=== PATIENT | male | born 1965 | race Hispanic/Latino ===

== ENCOUNTER 2016-10-18 07:14 | Emergency (ER) | payer SELFPAY ==
[2016-10-18 07:35] VITALS: BP 139/89
--- NOTE | 2016-10-18 07:59 | Emergency Department Report ---
- General Chief complaint: Animal Bite Stated complaint: KNOT ON ARM Time Seen by Provider: 10/18/16 07:53 Source: patient Mode of arrival: Ambulatory Limitations: No Limitations - History of Present Illness Initial comments: 51-year-old male with a past medical history of hypertension, hypercholesterolemia and gout comes in today to present with a swollen abscess on his left upper arm about the size of a dollar with a small pinhole in the center. Patient reports that he was bitten by insect. He reports that the pains 8 out of 10 that radiates up his left arm. Patient reports he noticed it about beginning of this week. He denies any alleviating or aggravating factors. He has not traveled outside the country in the last 30 days. MD complaint: insect bite/sting -: days(s) (3) Severity scale (0 -10): 8 Quality: sharp Consistency: intermittent Improves with: none Worsens with: none - Related Data Home Medications Medication Instructions Recorded Confirmed Last Taken Aspirin [Aspirin TAB] 325 mg PO QDAY 08/20/13 06/14/16 02/26/14 Lisinopril [Zestril] 40 mg PO QDAY 08/20/13 06/14/16 02/26/14 Metoprolol [Lopressor TAB] 100 mg PO BID 08/20/13 06/14/16 02/26/14 Pravastatin (Nf) [Pravachol] 40 mg PO QDAY 08/20/13 06/14/16 02/26/14 Previous Rx's Medication Instructions Recorded Last Taken Type Cephalexin [Keflex] 500 mg PO QID #40 capsule 10/18/16 Unknown Rx Allergies Allergy/AdvReac Type Severity Reaction Status Date / Time No Known Allergies Allergy Verified 02/11/16 21:37 Abscess Boil HPI - HPI Chief Complaint: Animal Bite Stated Complaint: KNOT ON ARM Time Seen by Provider: 10/18/16 07:53 Home Medications: Home Medications Medication Instructions Recorded Confirmed Last Taken Aspirin [Aspirin TAB] 325 mg PO QDAY 08/20/13 06/14/16 02/26/14 Lisinopril [Zestril] 40 mg PO QDAY 08/20/13 06/14/16 02/26/14 Metoprolol [Lopressor TAB] 100 mg PO BID 08/20/13 06/14/16 02/26/14 Pravastatin (Nf) [Pravachol] 40 mg PO QDAY 08/20/13 06/14/16 02/26/14 Previous Rx's Medication Instructions Recorded Last Taken Type Cephalexin [Keflex] 500 mg PO QID #40 capsule 10/18/16 Unknown Rx Allergies/Adverse Reactions: Allergies Allergy/AdvReac Type Severity Reaction Status Date / Time No Known Allergies Allergy Verified 02/11/16 21:37 ED Review of Systems ROS: Stated complaint: KNOT ON ARM Other details as noted in HPI ED Past Medical Hx - Past Medical History Previous Medical History?: Yes Hx Hypertension: Yes Hx Heart Attack/AMI: No Hx Congestive Heart Failure: No Hx Diabetes: No Hx Deep Vein Thrombosis: No Hx GERD: Yes Hx Sickle Cell Disease: No Hx Arthritis: No Hx Psychiatric Treatment: Yes Hx Asthma: No Hx COPD: No Hx HIV: No Additional medical history: gout. depression. high cholesterol - Surgical History Past Surgical History?: Yes Hx Coronary Stent: No Hx Pacemaker: No Hx Internal Defibrillator: No Additional Surgical History: angioplasty 2007 - Social History Smoking Status: Never Smoker Substance Use Type: None - Medications Home Medications: Home Medications Medication Instructions Recorded Confirmed Last Taken Type Aspirin [Aspirin TAB] 325 mg PO QDAY 08/20/13 06/14/16 02/26/14 History Lisinopril [Zestril] 40 mg PO QDAY 08/20/13 06/14/16 02/26/14 History Metoprolol [Lopressor TAB] 100 mg PO BID 08/20/13 06/14/16 02/26/14 History Pravastatin (Nf) [Pravachol] 40 mg PO QDAY 08/20/13 06/14/16 02/26/14 History Cephalexin [Keflex] 500 mg PO QID #40 capsule 10/18/16 Unknown Rx ED Physical Exam - General Limitations: No Limitations General appearance: alert, in no apparent distress - Head Head exam: Present: atraumatic, normocephalic - Eye Eye exam: Present: normal appearance - Cardiovascular Cardiovascular Exam: Present: regular rate, normal rhythm - Extremities Exam Extremities exam: Present: normal inspection, full ROM - Neurological Exam Neurological exam: Present: alert, oriented X3 - Psychiatric Psychiatric exam: Present: normal affect, normal mood - Skin Skin exam: Present: warm, dry, intact - Expanded Skin Exam Expanded Type of lesion: Present: abscess Description of rash: Present: size (half dollar), tenderness, erythematous, swelling, papular, indurated. Absent: blisters, discharge, fluctuant ED Course Vital Signs 10/18/16 07:26 Temperature 98.2 F Pulse Rate 82 Blood Pressure 139/89 O2 Sat by Pulse 100 Oximetry ED Medical Decision Making - Medical Decision Making Patient's been evaluated by this provider fast track. Discussed with patient that he needs supply warm compresses to the site 3-4 times a day. Complete antibiotics as prescribed. Follow-up in 3-4 days for reevaluation of the cellulitis/abscess. Patient verbalizes understanding. Critical care attestation.: If time is entered above; I have spent that time in minutes in the direct care of this critically ill patient, excluding procedure time. ED Disposition Clinical Impression: Cellulitis of left upper arm Disposition: DISCHARGED TO HOME OR SELFCARE Is pt being admited?: No Does the pt Need Aspirin: No Condition: Undetermined Additional Instructions: These take antibiotics as prescribed. He is to apply a warm hot compresses to the site at least 3-4 times a day. Please return back to the emergency room in 3-4 days for reevaluation of the abscess. Prescriptions: Cephalexin [Keflex] 500 mg PO QID #40 capsule Referrals: DR KADEN DIAMOND MERCHANT [Other] - 3-5 Days MICHAEL SUTTON MD [Staff Physician] - 3-5 Days Forms: Work/School Release Form(ED)
== END 2016-10-18 08:05 | disposition home or self-care (01) ==
LOC: ED 07:14
DX: L03.114 Cellulitis of left upper limb (principal); I10 Essential (primary) hypertension; K21.9 Gastro-esophageal reflux disease without esophagitis; F32.9 Major depressive disorder, single episode, unspecified; E78.00 Pure hypercholesterolemia, unspecified; M10.9 Gout, unspecified; Z98.62 Peripheral vascular angioplasty status
CPT/HCPCS: 99282

== ENCOUNTER 2016-10-21 16:38 | Emergency (ER) | payer SELFPAY ==
[2016-10-21] MEDS ORDERED: LET TOPICAL TP ONE (17:56)
[2016-10-21] MEDS ORDERED: TORADOL IM ONE (17:56)
[2016-10-21] MEDS ORDERED: MARCAINE 0.5% INFILTRATI NR (19:00)
--- NOTE | 2016-10-21 19:23 | Emergency Department Report ---
Entered by KRISTOPHER LEHMAN, acting as scribe for MAR BAE PA. - General Chief complaint: Skin/Abscess/Foreign Body Stated complaint: RASH ON LEFT ARM Time Seen by Provider: 10/21/16 17:22 Source: patient Mode of arrival: Ambulatory Limitations: No Limitations - History of Present Illness Initial comments: 51 year male with a PMHx of GERD and HTN presents to the ED c/o an abscess on left arm that began 3 days ago. Patient states that he was seen in this ED on c/o of similar symptoms and was prescribed Keflex along with pain medication. He was instructed to return to have abscess lanced and drained. Rates pain a 9/10 in severity. Denies fever, purulent drainage, numbness, nausea , vomiting, and insect bite. Reports applying warm compresses at home with no relief of pain. Notes tetanus shot is UTD. Denies tobacco use and EtOH consumption. NKDA. BERGERON complaint: abscess/boil (left upper arm) Onset/Timin -: days(s) Tetanus Up to Date: yes (2012) Location: LUE (left upper arm) Severity: moderate Severity scale (0 -10): 9 Quality: aching, sharp Consistency: constant Improves with: none Worsens with: none Context: none Associated symptoms: other (left upper arm pain due to abscess) Treatments Prior to Arrival: antibiotic, other (warm compresses) - Related Data Home Medications Medication Instructions Recorded Confirmed Last Taken Aspirin [Aspirin TAB] 325 mg PO QDAY 08/20/13 06/14/16 02/26/14 Lisinopril [Zestril] 40 mg PO QDAY 08/20/13 06/14/16 02/26/14 Metoprolol [Lopressor TAB] 100 mg PO BID 08/20/13 06/14/16 02/26/14 Pravastatin (Nf) [Pravachol] 40 mg PO QDAY 08/20/13 06/14/16 02/26/14 Previous Rx's Medication Instructions Recorded Last Taken Type Cephalexin [Keflex] 500 mg PO QID #40 capsule 10/21/16 Unknown Rx HYDROcodone/APAP 5-325 [[place] 1 each PO Q6HR PRN #12 tablet 10/21/16 Unknown Rx 5/325] Ibuprofen [Motrin] 600 mg PO Q8H PRN #15 tablet 10/21/16 Unknown Rx Sulfamethoxazole/Trimethoprim 1 each PO BID #20 tablet 10/21/16 Unknown Rx [Bactrim DS TAB] Allergies Allergy/AdvReac Type Severity Reaction Status Date / Time No Known Allergies Allergy Verified 02/11/16 21:37 Abscess Boil HPI - HPI Chief Complaint: Skin/Abscess/Foreign Body Stated Complaint: RASH ON LEFT ARM Time Seen by Provider: 10/21/16 17:22 Duration: 3 Days Location: Upper Extremity (left upper arm) Severity: Moderate History: Yes Pain, Yes Previous History (Hx of abscesses), No Fever, No Purulent Drainage, No Numbness, No Foreign Body, No Insect Bite Home Medications: Home Medications Medication Instructions Recorded Confirmed Last Taken Aspirin [Aspirin TAB] 325 mg PO QDAY 08/20/13 06/14/16 02/26/14 Lisinopril [Zestril] 40 mg PO QDAY 08/20/13 06/14/16 02/26/14 Metoprolol [Lopressor TAB] 100 mg PO BID 08/20/13 06/14/16 02/26/14 Pravastatin (Nf) [Pravachol] 40 mg PO QDAY 08/20/13 06/14/16 02/26/14 Previous Rx's Medication Instructions Recorded Last Taken Type Cephalexin [Keflex] 500 mg PO QID #40 capsule 10/21/16 Unknown Rx HYDROcodone/APAP 5-325 [[place] 1 each PO Q6HR PRN #12 tablet 10/21/16 Unknown Rx 5/325] Ibuprofen [Motrin] 600 mg PO Q8H PRN #15 tablet 10/21/16 Unknown Rx Sulfamethoxazole/Trimethoprim 1 each PO BID #20 tablet 10/21/16 Unknown Rx [Bactrim DS TAB] Allergies/Adverse Reactions: Allergies Allergy/AdvReac Type Severity Reaction Status Date / Time No Known Allergies Allergy Verified 02/11/16 21:37 ED Review of Systems Comment: All other systems reviewed and negative Constitutional: denies: chills, fever, weakness ENT: denies: throat pain Respiratory: denies: cough, orthopnea, shortness of breath, SOB with exertion, SOB at rest Cardiovascular: denies: chest pain, palpitations, edema, syncope Gastrointestinal: denies: abdominal pain, nausea, vomiting Musculoskeletal: denies: back pain, arthralgia Skin: other (3x3 abscess with erythema on left upper arm) Neurological: denies: headache, numbness ED Past Medical Hx - Past Medical History Previous Medical History?: Yes Hx Hypertension: Yes Hx Heart Attack/AMI: No Hx Congestive Heart Failure: No Hx Diabetes: No Hx Deep Vein Thrombosis: No Hx GERD: Yes Hx Sickle Cell Disease: No Hx Arthritis: No Hx Psychiatric Treatment: Yes Hx Asthma: No Hx COPD: No Hx HIV: No Additional medical history: gout. depression. high cholesterol - Surgical History Past Surgical History?: Yes Hx Coronary Stent: No Hx Pacemaker: No Hx Internal Defibrillator: No Additional Surgical History: angioplasty 2007 - Family History Family history: hypertension - Social History Smoking Status: Never Smoker Substance Use Type: None - Medications Home Medications: Home Medications Medication Instructions Recorded Confirmed Last Taken Type Aspirin [Aspirin TAB] 325 mg PO QDAY 08/20/13 06/14/16 02/26/14 History Lisinopril [Zestril] 40 mg PO QDAY 08/20/13 06/14/16 02/26/14 History Metoprolol [Lopressor TAB] 100 mg PO BID 08/20/13 06/14/16 02/26/14 History Pravastatin (Nf) [Pravachol] 40 mg PO QDAY 08/20/13 06/14/16 02/26/14 History Cephalexin [Keflex] 500 mg PO QID #40 capsule 10/21/16 Unknown Rx HYDROcodone/APAP 5-325 [[place] 1 each PO Q6HR PRN #12 tablet 10/21/16 Unknown Rx 5/325] Ibuprofen [Motrin] 600 mg PO Q8H PRN #15 tablet 10/21/16 Unknown Rx Sulfamethoxazole/Trimethoprim 1 each PO BID #20 tablet 10/21/16 Unknown Rx [Bactrim DS TAB] ED Physical Exam - General Limitations: No Limitations General appearance: alert, in no apparent distress - Head Head exam: Present: atraumatic, normocephalic - Eye Eye exam: Present: normal appearance, EOMI Pupils: Present: normal accommodation - ENT ENT exam: Present: normal orophraynx, mucous membranes moist, normal external ear exam - Neck Neck exam: Present: normal inspection, full ROM. Absent: tenderness, lymphadenopathy - Respiratory Respiratory exam: Present: normal lung sounds bilaterally. Absent: respiratory distress, wheezes, rales, rhonchi - Cardiovascular Cardiovascular Exam: Present: regular rate, normal rhythm, normal heart sounds. Absent: systolic murmur, diastolic murmur, rubs, gallop - GI/Abdominal GI/Abdominal exam: Present: soft, normal bowel sounds. Absent: distended, tenderness, guarding, rebound, rigid - Extremities Exam Extremities exam: Present: normal inspection (except abscess on left upper arm) , full ROM, tenderness (left upper arm around abscess), normal capillary refill , other (3x3 indurated abscess with erythema and moderate flunctuance on left upper arm, no opening present on abscess). Absent: pedal edema, joint swelling , calf tenderness - Back Exam Back exam: Present: normal inspection, full ROM - Neurological Exam Neurological exam: Present: alert, oriented X3, normal gait, reflexes normal. Absent: motor sensory deficit - Psychiatric Psychiatric exam: Present: normal affect, normal mood - Skin Skin exam: Present: warm, dry, intact, erythema (left upper arm around abscess) , other (3x3 indurated abscess with erythema and moderate flunctuance on left upper arm, no opening present on abscess). Absent: rash - Expanded Skin Exam Expanded Type of lesion: Present: abscess Distribution of rash: LUE (left arm) Description of rash: Present: size (3 cm x 3 cm), tenderness, erythematous, swelling, fluctuant, indurated. Absent: discharge ED Course Vital Signs 10/21/16 17:04 Temperature 98.7 F Pulse Rate 88 Respiratory 20 Rate Blood Pressure 116/70 O2 Sat by Pulse 97 Oximetry - Reevaluation(s) Reevaluation #1: 10/21/16 19:04 Given Toradol 60 mg IM and emergency room prior to procedure. Tetanus vaccine is up-to-date since 2012. Patient also had topical LET applied to side prior to procedure. See Procedure note for details on incision and drainage. 10/21/16 19:05 - I & D Left Upper Arm Type of Procedure: Complex Site: left arm Blade Size: topical let applied to site I & D Procedure: betadine prep, sterile drapes applied, sterile dressing applied , gauze wick placed ED Medical Decision Making - Medical Decision Making ED course: SEE Procedure note in details and incision and drainage of abscess. Patient tolerated procedure well. Patient said that he cannot tolerate to 4 times a day antibiotic that is taken therefore told them to stop Keflex and will be started on Bactrim DS. She'll with diagnosis with abscess and cellulitis with Encounter for incision and drainage. She discharged home understanding diagnosis and to return to emergency room in 4 days for removal of packing and reevaluation of abscess. Toradol 60 mg IM prior to procedure. DisCharged home with prescription for Bactrim, Motrin and [place]. ED Disposition Clinical Impression: Cellulitis and abscess of upper arm and forearm, Encounter for incision and drainage procedure Disposition: DISCHARGED TO HOME OR SELFCARE Is pt being admited?: No Does the pt Need Aspirin: No Condition: Stable Instructions: Abscess Incision and Drainage (ED), Cellulitis (ED) Additional Instructions: return to the hospital in 4 days for removal of packing and evaluation of abscess. Stop taking Keflex and start taking Bactrim DS. [place] can cause you to be drowsy so please do not operate any heavy machinery or drive motor vehicle. Please return to emergency room in 4 days to have packing removed and abscess reevaluated Prescriptions: Cephalexin [Keflex] 500 mg PO QID #40 capsule HYDROcodone/APAP 5-325 [[place] 5/325] 1 each PO Q6HR PRN #12 tablet PRN Reason: Pain Ibuprofen [Motrin] 600 mg PO Q8H PRN #15 tablet PRN Reason: Pain Sulfamethoxazole/Trimethoprim [Bactrim DS TAB] 1 each PO BID #20 tablet Referrals: You, PCP [Other] - 2-3 Days Forms: Work/School Release Form(ED) This documentation as recorded by the DOMINIK diallo JASMINE,accurately reflects the service I personally performed and the decisions made by me,MAR BAE PA.
[2016-10-21 20:06] VITALS: BP 119/72
== END 2016-10-21 19:45 | disposition home or self-care (01) ==
LOC: ED 16:38
DX: L02.414 Cutaneous abscess of left upper limb (principal); I10 Essential (primary) hypertension; K21.9 Gastro-esophageal reflux disease without esophagitis; E78.00 Pure hypercholesterolemia, unspecified; F32.9 Major depressive disorder, single episode, unspecified; M10.9 Gout, unspecified; Z79.82 Long term (current) use of aspirin
CPT/HCPCS: 10061; 96372; 99282; J1885

== ENCOUNTER 2016-10-24 13:50 | Emergency (ER) | payer SELFPAY ==
[2016-10-24 14:59] VITALS: BP 109/65
--- NOTE | 2016-10-24 16:34 | Emergency Department Report ---
- General Chief Complaint: Laceration/Recheck/Suture Stated Complaint: PACKING REMOVED Time Seen by Provider: 10/24/16 16:06 Source: patient Mode of arrival: Ambulatory Limitations: No Limitations - History of Present Illness Initial Comments: 51-year-old male past medical history recurrent abscesses hypertension presents for wound check left upper extremity status post incision and drainage approximately 3 days ago. Patient states he had abscess incised and drained at base of left bicep. Patient presents for packing removal today. Patient states that swelling and erythema has significantly improved since his initial assessment. Denies any significant pus drainage from site, packing visibly in place. Denies any fever or chills or any significant left upper extremity pain patient states that he has been taking Bactrim but is only taking 1 pill a day as he states that pills bother her stomach. Onset/Timin -: days(s) Location: other (left upper extremity) Extremity Location: Left: Arm (visible incision and drainage site left upper extremity base of left bicep on the lateral aspect of upper arm) Patient Tetanus UTD: Yes Context: other (abscess) - Related Data Home Medications Medication Instructions Recorded Confirmed Last Taken Aspirin [Aspirin TAB] 325 mg PO QDAY 08/20/13 06/14/16 02/26/14 Lisinopril [Zestril] 40 mg PO QDAY 08/20/13 06/14/16 02/26/14 Metoprolol [Lopressor TAB] 100 mg PO BID 08/20/13 06/14/16 02/26/14 Pravastatin (Nf) [Pravachol] 40 mg PO QDAY 08/20/13 06/14/16 02/26/14 Previous Rx's Medication Instructions Recorded Last Taken Type Cephalexin [Keflex] 500 mg PO QID #40 capsule 10/21/16 Unknown Rx HYDROcodone/APAP 5-325 [[place] 1 each PO Q6HR PRN #12 tablet 10/21/16 Unknown Rx 5/325] Ibuprofen [Motrin] 600 mg PO Q8H PRN #15 tablet 10/21/16 Unknown Rx Sulfamethoxazole/Trimethoprim 1 each PO BID #20 tablet 10/21/16 Unknown Rx [Bactrim DS TAB] Allergies Allergy/AdvReac Type Severity Reaction Status Date / Time No Known Allergies Allergy Verified 10/24/16 14:55 ED Review of Systems ROS: Stated complaint: PACKING REMOVED Other details as noted in HPI Constitutional: denies: chills, fever Eyes: denies: eye pain, eye discharge, vision change ENT: denies: ear pain, throat pain Respiratory: denies: cough, shortness of breath, wheezing Cardiovascular: denies: chest pain, palpitations Endocrine: no symptoms reported Gastrointestinal: denies: abdominal pain, nausea, diarrhea Genitourinary: denies: urgency, dysuria Musculoskeletal: denies: back pain, joint swelling, arthralgia Skin: as per HPI (abscess left upper arm). denies: rash, lesions Neurological: denies: headache, weakness, paresthesias Psychiatric: denies: anxiety, depression Hematological/Lymphatic: denies: easy bleeding, easy bruising ED Past Medical Hx - Past Medical History Hx Hypertension: Yes Hx Heart Attack/AMI: No Hx Congestive Heart Failure: No Hx Diabetes: No Hx Deep Vein Thrombosis: No Hx GERD: Yes Hx Sickle Cell Disease: No Hx Arthritis: No Hx Psychiatric Treatment: Yes Hx Asthma: No Hx COPD: No Hx HIV: No Additional medical history: gout. depression. high cholesterol - Surgical History Hx Coronary Stent: No Hx Pacemaker: No Hx Internal Defibrillator: No Additional Surgical History: angioplasty 2007 - Social History Smoking Status: Never Smoker Substance Use Type: None - Medications Home Medications: Home Medications Medication Instructions Recorded Confirmed Last Taken Type Aspirin [Aspirin TAB] 325 mg PO QDAY 08/20/13 06/14/16 02/26/14 History Lisinopril [Zestril] 40 mg PO QDAY 08/20/13 06/14/16 02/26/14 History Metoprolol [Lopressor TAB] 100 mg PO BID 08/20/13 06/14/16 02/26/14 History Pravastatin (Nf) [Pravachol] 40 mg PO QDAY 08/20/13 06/14/16 02/26/14 History Cephalexin [Keflex] 500 mg PO QID #40 capsule 10/21/16 Unknown Rx HYDROcodone/APAP 5-325 [[place] 1 each PO Q6HR PRN #12 tablet 10/21/16 Unknown Rx 5/325] Ibuprofen [Motrin] 600 mg PO Q8H PRN #15 tablet 10/21/16 Unknown Rx Sulfamethoxazole/Trimethoprim 1 each PO BID #20 tablet 10/21/16 Unknown Rx [Bactrim DS TAB] ED Physical Exam - General Limitations: No Limitations General appearance: alert, in no apparent distress - Head Head exam: Present: atraumatic, normocephalic - Eye Eye exam: Present: normal appearance, PERRL, EOMI - ENT ENT exam: Present: mucous membranes moist - Neck Neck exam: Present: normal inspection - Respiratory Respiratory exam: Present: normal lung sounds bilaterally. Absent: respiratory distress - Cardiovascular Cardiovascular Exam: Present: regular rate, normal rhythm. Absent: systolic murmur, diastolic murmur, rubs, gallop - GI/Abdominal GI/Abdominal exam: Present: soft, normal bowel sounds - Rectal Rectal exam: Present: deferred - Extremities Exam Extremities exam: Present: normal inspection - Expanded Upper Extremity Exam Left Shoulder Exam: Present: normal inspection, full ROM Upper Arm exam: Present: tenderness, swelling (visible incision and drainage site with horizontal incision and slight extrusion of packing material. Mild surrounding induration.) Elbow exam: Present: normal inspection, full ROM Forearm Wrist exam: Present: normal inspection, full ROM Hand Wrist exam: Present: normal inspection, full ROM Vascular: Present: vascular compromise, normal capillary refill - Back Exam Back exam: Present: normal inspection - Neurological Exam Neurological exam: Present: alert, oriented X3, CN II-XII intact, normal gait - Psychiatric Psychiatric exam: Present: normal affect, normal mood - Skin Skin exam: Present: warm, dry, intact, normal color. Absent: rash ED Course Vital Signs 10/24/16 14:55 Temperature 97.7 F Pulse Rate 72 Respiratory 17 Rate Blood Pressure 109/65 O2 Sat by Pulse 98 Oximetry ED Medical Decision Making - Medical Decision Making A/P: Wound check left upper extremity 1-packing removed, wound slightly irrigated with normal saline 10 mL flush 2-per patient significant amount of reduction of pain and swelling compared to the day he had initially assessed incised and drained 3-I advised patient to adhere to his antibiotic regimen as instructed, Bactrim should be twice a day patient is only taking it once a day because he states it is bothering his stomach. I advised patient to adhere to the regimen for now and noted to mitigate any worsening infection 4-small amount of packing removed, approximately 4 inches long, will not repack wound at this time 5-I advised patient that if he notices any significant return of swelling expanding cellulitis or erythema any significant increase in pain any fever or chills or extension of erythema to the elbow joint to return to the ED immediately showed patient pictures of extensive cellulitis patient understands my instructions clearly and expressed understanding. Critical care attestation.: If time is entered above; I have spent that time in minutes in the direct care of this critically ill patient, excluding procedure time. ED Disposition Clinical Impression: Visit for wound check Disposition: DISCHARGED TO HOME OR SELFCARE Is pt being admited?: No Does the pt Need Aspirin: No Condition: Stable Instructions: Abscess (ED), Abscess Incision and Drainage (ED), Cellulitis (ED) Referrals: RIVKA ALEXANDRA MD [Referring] - 3-5 Days Forms: Work/School Release Form(ED) Time of Disposition: 16:35
== END 2016-10-24 17:03 | disposition home or self-care (01) ==
LOC: ED 13:50
DX: Z48.01 Encounter for change or removal of surgical wound dressing (principal); I10 Essential (primary) hypertension; K21.9 Gastro-esophageal reflux disease without esophagitis; M10.9 Gout, unspecified; F32.9 Major depressive disorder, single episode, unspecified; E78.00 Pure hypercholesterolemia, unspecified; Z79.82 Long term (current) use of aspirin
CPT/HCPCS: 99282

== ENCOUNTER 2016-12-09 09:40 | Emergency (ER) | payer SELFPAY ==
[2016-12-09 09:59] VITALS: BP 129/82
[2016-12-09] MEDS ORDERED: NACL 0.9% 1000 ML 1,000 ML IV ONE (11:56)
[2016-12-09] MEDS ORDERED: REGLAN IV ONE (11:56)
[2016-12-09] MEDS ORDERED: MORPHINE IV ONE (11:56)
--- NOTE | 2016-12-09 12:10 | Emergency Department Report ---
ED Abdominal Pain HPI - General Chief Complaint: Pain General Stated Complaint: RT SIDE PAIN Time Seen by Provider: 12/09/16 11:43 Source: patient Mode of arrival: Ambulatory Limitations: No Limitations - History of Present Illness MD Complaint: abdominal pain, flank pain -: week(s) (2) Location: RUQ, RLQ, R flank Radiation: RLQ, R flank Severity scale (0 -10): 5 Quality: cramping, aching Consistency: intermittent Improves With: nothing Worsens With: eating, movement, rest Associated Symptoms: diarrhea. denies: nausea, vomiting, chills, constipation, dysuria, hematemesis, hematochezia - Related Data Home Medications Medication Instructions Recorded Confirmed Last Taken Aspirin [Aspirin TAB] 325 mg PO QDAY 08/20/13 06/14/16 02/26/14 Lisinopril [Zestril] 40 mg PO QDAY 08/20/13 06/14/16 02/26/14 Metoprolol [Lopressor TAB] 100 mg PO BID 08/20/13 06/14/16 02/26/14 Pravastatin (Nf) [Pravachol] 40 mg PO QDAY 08/20/13 06/14/16 02/26/14 Previous Rx's Medication Instructions Recorded Last Taken Type Cephalexin [Keflex] 500 mg PO QID #40 capsule 10/21/16 Unknown Rx HYDROcodone/APAP 5-325 [[place] 1 each PO Q6HR PRN #12 tablet 10/21/16 Unknown Rx 5/325] Ibuprofen [Motrin] 600 mg PO Q8H PRN #15 tablet 10/21/16 Unknown Rx Sulfamethoxazole/Trimethoprim 1 each PO BID #20 tablet 10/21/16 Unknown Rx [Bactrim DS TAB] Ibuprofen [Motrin] 800 mg PO Q8HR PRN #20 tablet 12/09/16 Unknown Rx Methocarbamol [Robaxin TAB] 750 mg PO Q8H PRN #20 tablet 12/09/16 Unknown Rx traMADol [Ultram 50 MG tab] 50 mg PO Q4HR PRN #2 tablet 12/09/16 Unknown Rx Allergies Allergy/AdvReac Type Severity Reaction Status Date / Time No Known Allergies Allergy Verified 10/24/16 14:55 ED Review of Systems ROS: Stated complaint: RT SIDE PAIN Other details as noted in HPI Constitutional: denies: chills, fever Eyes: denies: eye pain, eye discharge, vision change ENT: denies: ear pain, throat pain Respiratory: denies: cough, orthopnea, shortness of breath, SOB with exertion, SOB at rest, stridor, wheezing Cardiovascular: denies: chest pain, palpitations Endocrine: no symptoms reported Gastrointestinal: abdominal pain, diarrhea. denies: nausea, vomiting, constipation Genitourinary: denies: urgency, dysuria Musculoskeletal: denies: back pain, joint swelling, arthralgia Skin: denies: rash, lesions Neurological: denies: headache, weakness, paresthesias Psychiatric: denies: anxiety, depression Hematological/Lymphatic: denies: easy bleeding, easy bruising ED Past Medical Hx - Past Medical History Previous Medical History?: Yes Hx Hypertension: Yes Hx Heart Attack/AMI: No Hx Congestive Heart Failure: No Hx Diabetes: No Hx Deep Vein Thrombosis: No Hx GERD: Yes Hx Sickle Cell Disease: No Hx Arthritis: No Hx Psychiatric Treatment: Yes Hx Asthma: No Hx COPD: No Hx HIV: No Additional medical history: gout. depression. high cholesterol - Surgical History Past Surgical History?: Yes Hx Coronary Stent: No Hx Pacemaker: No Hx Internal Defibrillator: No Additional Surgical History: angioplasty 2007 - Social History Smoking Status: Never Smoker Substance Use Type: None - Medications Home Medications: Home Medications Medication Instructions Recorded Confirmed Last Taken Type Aspirin [Aspirin TAB] 325 mg PO QDAY 08/20/13 06/14/16 02/26/14 History Lisinopril [Zestril] 40 mg PO QDAY 08/20/13 06/14/16 02/26/14 History Metoprolol [Lopressor TAB] 100 mg PO BID 08/20/13 06/14/16 02/26/14 History Pravastatin (Nf) [Pravachol] 40 mg PO QDAY 08/20/13 06/14/16 02/26/14 History Cephalexin [Keflex] 500 mg PO QID #40 capsule 10/21/16 Unknown Rx HYDROcodone/APAP 5-325 [[place] 1 each PO Q6HR PRN #12 tablet 10/21/16 Unknown Rx 5/325] Ibuprofen [Motrin] 600 mg PO Q8H PRN #15 tablet 10/21/16 Unknown Rx Sulfamethoxazole/Trimethoprim 1 each PO BID #20 tablet 10/21/16 Unknown Rx [Bactrim DS TAB] Ibuprofen [Motrin] 800 mg PO Q8HR PRN #20 tablet 12/09/16 Unknown Rx Methocarbamol [Robaxin TAB] 750 mg PO Q8H PRN #20 tablet 12/09/16 Unknown Rx traMADol [Ultram 50 MG tab] 50 mg PO Q4HR PRN #2 tablet 12/09/16 Unknown Rx ED Physical Exam - General Limitations: No Limitations General appearance: alert, in no apparent distress - Head Head exam: Present: atraumatic, normocephalic - Eye Eye exam: Present: normal appearance, PERRL, EOMI - ENT ENT exam: Present: normal exam, mucous membranes moist - Neck Neck exam: Present: normal inspection, full ROM. Absent: tenderness, meningismus, lymphadenopathy - Respiratory Respiratory exam: Present: normal lung sounds bilaterally. Absent: respiratory distress, wheezes, rales, rhonchi, stridor, chest wall tenderness, accessory muscle use, decreased breath sounds, prolonged expiratory - Cardiovascular Cardiovascular Exam: Present: regular rate. Absent: systolic murmur, diastolic murmur, rubs, gallop - GI/Abdominal GI/Abdominal exam: Present: soft, normal bowel sounds. Absent: distended, tenderness, guarding, rebound, rigid, diminished bowel sounds, mass, pulsatile mass - Rectal Rectal exam: Present: deferred - Extremities Exam Extremities exam: Present: normal inspection - Back Exam Back exam: Present: normal inspection, full ROM, CVA tenderness (R), paraspinal tenderness - Neurological Exam Neurological exam: Present: alert, oriented X3 - Psychiatric Psychiatric exam: Present: normal affect, normal mood - Skin Skin exam: Present: warm, dry, intact, normal color. Absent: rash ED Course Vital Signs 12/09/16 09:55 Temperature 98.4 F Pulse Rate 73 Respiratory 16 Rate Blood Pressure 129/82 O2 Sat by Pulse 94 Oximetry - Reevaluation(s) Reevaluation #1: 12/09/16 14:00 She walking around all day asking when he can eat normotensive normal cardiac afebrile no distress noted. ED Medical Decision Making - Lab Data Result diagrams: 12/09/16 12:54 12/09/16 12:54 Critical care attestation.: If time is entered above; I have spent that time in minutes in the direct care of this critically ill patient, excluding procedure time. ED Disposition Clinical Impression: Right flank pain Disposition: DISCHARGED TO HOME OR SELFCARE Is pt being admited?: No Condition: Stable Instructions: Flank Pain (ED) Prescriptions: Ibuprofen [Motrin] 800 mg PO Q8HR PRN #20 tablet PRN Reason: Pain Methocarbamol [Robaxin TAB] 750 mg PO Q8H PRN #20 tablet PRN Reason: Pain traMADol [Ultram 50 MG tab] 50 mg PO Q4HR PRN #2 tablet PRN Reason: Pain Referrals: PRIMARY CARE, [Primary Care Provider] - 3-5 Days YVON BLANK MD [Staff Physician] - 3-5 Days
[2016-12-09 12:28] LABS: Bilirubin,Urine NEG (Negative); Blood,Urine NEG (Negative); Ketones,Urine NEG (Negative); Leukocyte Esterase,Urine NEG (Negative); Mucus,Urine FEW /HPF; Nitrite,Urine NEG (Negative); Protein,Urine <15 mg/dL mg/dL (Negative); Urobilinogen,Urine < 2.0 mg/dL (<2.0)
--- NOTE | 2016-12-09 12:37 | Ultrasound Report ---
Sonogram right upper quadrant: History: Right upper quadrant pain. Findings: Normal aorta and inferior vena cava. An fatty liver. No intrahepatic or extrahepatic duct dilatation. Common bile duct diameter is 4.6 mm. Gallbladder wall thickness 1.7 mm. No calculi in the gallbladder. No pericholecystic fluid. Right kidney 12.4 x 4.8 x 5.4 cm. Cortical thickness is 1.1 cm. Pancreas obscured by bowel gas. Impression: Fatty liver.
--- NOTE | 2016-12-09 12:59 | Cat Scan Report ---
CT scan of abdomen and pelvis without IV contrast: History: Right flank pain. Findings: Normal lung bases. No pleural pericardial effusion. Normal liver spleen pancreas and gallbladder. Normal adrenals kidneys and bladder. No free intraperitoneal fluid or air. No evidence of adenopathy. Normal aorta. No evidence of appendicitis. Diverticulosis sigmoid and ascending colon. No evidence of diverticulitis. Gaseous colon with moderate volume stool in colon. Left inguinal hernia containing fat. Impression: Diverticulosis sigmoid and ascending colon. Left inguinal hernia containing fat measuring 2.5 cm.
[2016-12-09 13:05] LABS: Eosinophils % (Auto) 1.8 % (0.0-4.3); Hematocrit 48.5 % (35.5-45.6); Hemoglobin 16.2 gm/dl (11.8-15.2); Mean Corpuscular HGB Conc 33 % (32-34); Mean Corpuscular Hemoglobin 28 pg (28-32); Mean Corpuscular Volume 84 fl (84-94); Platelet Count 220 K/mm3 (140-440); Red Cell Distribution Width 14.3 % (13.2-15.2); White Blood Count 12.6 K/mm3 (4.5-11.0)
--- NOTE | 2016-12-09 13:13 | XRay Report ---
Chest 2 views: Compared to 06/14/16. History: Right upper quadrant pain. Findings: Borderline cardiomegaly the trachea is midline. No consolidation, pneumothorax or pleural effusion. Impression: Cardiomegaly. No acute lung changes.
[2016-12-09 13:25] LABS: Alanine Aminotransferase 26 units/L (7-56); Albumin 3.8 g/dL (3.9-5); Albumin/Globulin Ratio 1.2 %; Alkaline Phosphatase 71 units/L (35-129); Anion Gap 20 mmol/L; Blood Urea Nitrogen 7 mg/dL (9-20); Calcium 9.6 mg/dL (8.4-10.2); Carbon Dioxide 23 mmol/L (22-30); Chloride 99.7 mmol/L (98-107); Glucose 81 mg/dL (75-100); Lipase 49 units/L (13-60); Potassium 4.1 mmol/L (3.6-5.0); Sodium 139 mmol/L (137-145); Total Protein 7.1 g/dL (6.3-8.2)
== END 2016-12-09 14:17 | disposition home or self-care (01) ==
LOC: ED 09:40
DX: R10.84 Generalized abdominal pain (principal); I10 Essential (primary) hypertension; K21.9 Gastro-esophageal reflux disease without esophagitis
CPT/HCPCS: 36415; 71020; 74176; 76705; 80053; 81001; 83690; 85025; 96361; 96374; 96375; 99284; J2270; J2765; J7030

== ENCOUNTER 2016-12-15 07:06 | Emergency (ER) | payer SELFPAY ==
[2016-12-15 07:29] VITALS: BP 125/86
[2016-12-15] MEDS ORDERED: LIDODERM 5% TD ONE (09:32)
--- NOTE | 2016-12-15 09:44 | Emergency Department Report ---
ED Back Pain/Injury HPI - General Chief Complaint: Back Pain/Injury Stated Complaint: RT SIDE/BACK PAIN Time Seen by Provider: 12/15/16 09:21 Source: patient, old records reviewed Mode of arrival: Ambulatory Limitations: No Limitations - History of Present Illness Initial Comments: PT c/o back pain x 1.5 weeks. PT states prior to the pain, he was moving some stuff around his house. PT states he thinks he pulled a muscle in his back. PT states he was seen 12-09-16 for the same pain and he had labs, us and ct. PT states he was given a muscle relaxer but it does not help, so he stopped taking it yesterday. 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 PT states he will take 500 mg Tylenol for the pain. PT has also tried bengay and mineral ice topical. PT states that the topical medication only helps for a minute. PT states he does not have money to fill RXs and he is hoping for a strong pain shot to take the pain away. MD Complaint: back pain -: Gradual, week(s) (1.5) Similar Symptoms Previously: Yes Place: home Radiation: none Severity scale (0 -10): 10 Quality: sharp Consistency: constant Improves With: medication (brief relief ) Worsens With: movement, sitting upright Associated Symptoms: denies: chest pain, difficulty walking, incontinence, fever /chills, constipation, abdominal pain, loss of appetite, nausea/vomiting, rash, shortness of breath - Related Data Home Medications Medication Instructions Recorded Confirmed Last Taken Aspirin [Aspirin TAB] 325 mg PO QDAY 08/20/13 06/14/16 02/26/14 Lisinopril [Zestril] 40 mg PO QDAY 08/20/13 06/14/16 02/26/14 Metoprolol [Lopressor TAB] 100 mg PO BID 08/20/13 06/14/16 02/26/14 Pravastatin (Nf) [Pravachol] 40 mg PO QDAY 08/20/13 06/14/16 02/26/14 Previous Rx's Medication Instructions Recorded Last Taken Type Cyclobenzaprine HCl [Flexeril 5 MG 5 mg PO TID PRN #12 tab 06/10/17 Unknown Rx TAB] Allergies Allergy/AdvReac Type Severity Reaction Status Date / Time No Known Allergies Allergy Verified 12/15/16 07:29 ED Review of Systems ROS: Stated complaint: RT SIDE/BACK PAIN Other details as noted in HPI Comment: All other systems reviewed and negative Constitutional: denies: chills, fever Cardiovascular: denies: chest pain, syncope Gastrointestinal: denies: abdominal pain, nausea, vomiting Genitourinary: denies: dysuria Musculoskeletal: back pain Skin: denies: rash ED Past Medical Hx - Past Medical History Hx Hypertension: Yes Hx Heart Attack/AMI: No Hx Congestive Heart Failure: No Hx Diabetes: No Hx Deep Vein Thrombosis: No Hx GERD: Yes Hx Sickle Cell Disease: No Hx Arthritis: No Hx Psychiatric Treatment: Yes Hx Asthma: No Hx COPD: No Hx HIV: No Additional medical history: gout. depression. high cholesterol - Surgical History Hx Coronary Stent: No Hx Pacemaker: No Hx Internal Defibrillator: No Additional Surgical History: angioplasty 2007 - Social History Smoking Status: Never Smoker Substance Use Type: Prescribed - Medications Home Medications: Home Medications Medication Instructions Recorded Confirmed Last Taken Type Aspirin [Aspirin TAB] 325 mg PO QDAY 08/20/13 06/14/16 02/26/14 History Lisinopril [Zestril] 40 mg PO QDAY 08/20/13 06/14/16 02/26/14 History Metoprolol [Lopressor TAB] 100 mg PO BID 08/20/13 06/14/16 02/26/14 History Pravastatin (Nf) [Pravachol] 40 mg PO QDAY 08/20/13 06/14/16 02/26/14 History Cyclobenzaprine HCl [Flexeril 5 MG 5 mg PO TID PRN #12 tab 12/15/16 Unknown Rx TAB] ED Physical Exam - General Limitations: No Limitations General appearance: alert, in no apparent distress, obese - Head Head exam: Present: atraumatic, normocephalic, normal inspection - Eye Eye exam: Present: normal appearance. Absent: conjunctival injection - ENT ENT exam: Present: normal exam, normal external ear exam - Neck Neck exam: Present: normal inspection, full ROM. Absent: tenderness - Respiratory Respiratory exam: Present: normal lung sounds bilaterally. Absent: respiratory distress, chest wall tenderness, accessory muscle use - Cardiovascular Cardiovascular Exam: Present: regular rate, normal rhythm - GI/Abdominal GI/Abdominal exam: Present: soft, other (obese ). Absent: tenderness - Extremities Exam Extremities exam: Present: normal inspection, full ROM. Absent: pedal edema - Back Exam Back exam: Present: normal inspection, full ROM, tenderness, muscle spasm, paraspinal tenderness. Absent: CVA tenderness (R), CVA tenderness (L), vertebral tenderness - Neurological Exam Neurological exam: Present: alert, oriented X3 - Psychiatric Psychiatric exam: Present: normal affect, normal mood - Skin Skin exam: Present: warm, dry, intact, normal color, other (patches of dry skin noted to trunk, no cellulitis or abscesses noted ) ED Course Vital Signs 12/15/16 07:25 Temperature 98.3 F Pulse Rate 82 Respiratory 17 Rate Blood Pressure 125/86 O2 Sat by Pulse 97 Oximetry - Reevaluation(s) Reevaluation #1: 12/15/16 09:53 PT aware of dx and plan of care. PT aware he will need to remove lidocaine patch in 12 hours. PT has no questions at this time. - Pulse Oximetry Interpretation Digit-Finger Initial Pulse Oximetry Readin Actions Taken: none ED Medical Decision Making - Differential Diagnosis strain, muscle spasm, back pain Critical Care Time: No Critical care attestation.: If time is entered above; I have spent that time in minutes in the direct care of this critically ill patient, excluding procedure time. ED Disposition Clinical Impression: Back pain Qualifiers: Back pain location: low back pain Chronicity: acute Back pain laterality: right Sciatica presence: without sciatica Qualified Code(s): M54.5 - Low back pain Disposition: TO HOME OR SELFCARE Is pt being admited?: No Does the pt Need Aspirin: No Condition: Stable Instructions: Low Back Strain (ED), Acute Low Back Pain (ED), Muscle Spasm (ED) Additional Instructions: No driving or ETOH after flexeril continue OTC Tylenol Take off lidocaine patch between 9-10 pm tonight no heavy lifting Prescriptions: Cyclobenzaprine HCl [Flexeril 5 MG TAB] 5 mg PO TID PRN #12 tab PRN Reason: Muscle Spasm Referrals: PRIMARY CARE, [Primary Care Provider] - 3-5 Days KYLIE CHAVARRIA MD [Staff Physician] - 3-5 Days [facility] [Outside] - 3-5 Days [facility] [Outside] - 3-5 Days Time of Disposition: 09:57
== END 2016-12-15 10:22 | disposition home or self-care (01) ==
LOC: ED 07:06
DX: M54.5 Low back pain (principal); I10 Essential (primary) hypertension; K21.9 Gastro-esophageal reflux disease without esophagitis; F32.9 Major depressive disorder, single episode, unspecified; E78.00 Pure hypercholesterolemia, unspecified; M10.9 Gout, unspecified; X50.0XXA Overexertion from strenuous movement or load, initial encounter; Y93.89 Activity, other specified; Y99.8 Other external cause status; Y92.89 Other specified places as the place of occurrence of the external cause
CPT/HCPCS: 96372; 99282; J2930

== ENCOUNTER 2017-06-19 19:12 | Emergency (ER) | payer SELFPAY ==
[2017-06-19] MEDS ORDERED: AFRIN NS ONE (21:38)
[2017-06-19 21:58] VITALS: BP 114/73
--- NOTE | 2017-06-19 21:58 | Emergency Department Report ---
ED General Adult HPI - General Chief complaint: High BP Stated complaint: HIGH BLOOD PRESSURE Time Seen by Provider: 06/19/17 21:03 Source: patient Mode of arrival: Ambulatory Limitations: No Limitations - History of Present Illness Initial comments: pt is a 52 y/o w/m with hx of htn who presents for intermittent nose bleed x 2 days last 1 days ago, pt advised missed bp medications and scratched his nose initiating bleed. hx of of same with missing bp medication Onset/Timin -: days(s) Radiation: non-radiation Severity scale (0 -10): 0 Consistency: intermittent Improves with: other (direct pressure ) Worsens with: other (blowing nose ) Associated Symptoms: denies: fever/chills, headaches, loss of appetite, nausea/ vomiting, shortness of breath, weakness Treatments Prior to Arrival: none - Related Data Home Medications Medication Instructions Recorded Confirmed Last Taken Aspirin [Aspirin TAB] 325 mg PO QDAY 08/20/13 06/14/16 02/26/14 Lisinopril [Zestril] 40 mg PO QDAY 08/20/13 06/14/16 02/26/14 Metoprolol [Lopressor TAB] 100 mg PO BID 08/20/13 06/14/16 02/26/14 Pravastatin [Pravachol] 40 mg PO QDAY 08/20/13 06/14/16 02/26/14 Previous Rx's Medication Instructions Recorded Last Taken Type Cyclobenzaprine HCl [Flexeril 5 MG 5 mg PO TID PRN #12 tab 12/15/16 Unknown Rx TAB] Allergies Allergy/AdvReac Type Severity Reaction Status Date / Time No Known Allergies Allergy Verified 12/15/16 07:29 ED Review of Systems ROS: Stated complaint: HIGH BLOOD PRESSURE Other details as noted in HPI Constitutional: denies: chills, fever Eyes: denies: eye pain, eye discharge, vision change ENT: epistaxis Respiratory: denies: cough, shortness of breath, wheezing Cardiovascular: denies: chest pain, palpitations Endocrine: no symptoms reported Gastrointestinal: denies: abdominal pain, nausea, diarrhea Genitourinary: denies: urgency, dysuria Musculoskeletal: denies: back pain, joint swelling, arthralgia Skin: denies: rash, lesions Neurological: denies: headache, weakness, paresthesias Psychiatric: denies: anxiety, depression Hematological/Lymphatic: denies: easy bleeding, easy bruising ED Past Medical Hx - Past Medical History Hx Hypertension: Yes Hx Heart Attack/AMI: No Hx Congestive Heart Failure: No Hx Diabetes: No Hx Deep Vein Thrombosis: No Hx GERD: Yes Hx Sickle Cell Disease: No Hx Arthritis: No Hx Psychiatric Treatment: Yes Hx Asthma: No Hx COPD: No Hx HIV: No Additional medical history: gout. depression. high cholesterol - Surgical History Hx Coronary Stent: No Hx Pacemaker: No Hx Internal Defibrillator: No Additional Surgical History: angioplasty 2007 - Social History Smoking Status: Never Smoker Substance Use Type: Prescribed - Medications Home Medications: Home Medications Medication Instructions Recorded Confirmed Last Taken Type Aspirin [Aspirin TAB] 325 mg PO QDAY 08/20/13 06/14/16 02/26/14 History Lisinopril [Zestril] 40 mg PO QDAY 08/20/13 06/14/16 02/26/14 History Metoprolol [Lopressor TAB] 100 mg PO BID 08/20/13 06/14/16 02/26/14 History Pravastatin [Pravachol] 40 mg PO QDAY 08/20/13 06/14/16 02/26/14 History Cyclobenzaprine HCl [Flexeril 5 MG 5 mg PO TID PRN #12 tab 12/15/16 Unknown Rx TAB] ED Physical Exam - General Limitations: No Limitations General appearance: alert, in no apparent distress - Head Head exam: Present: atraumatic, normocephalic - Eye Eye exam: Present: normal appearance - ENT ENT exam: Present: normal orophraynx, mucous membranes dry, mucous membranes moist, TM's normal bilaterally, normal external ear exam - Expanded ENT Exam Expanded Throat exam: Positive: other (no blood ) - Neck Neck exam: Present: normal inspection - Respiratory Respiratory exam: Present: normal lung sounds bilaterally. Absent: respiratory distress - Cardiovascular Cardiovascular Exam: Present: regular rate, normal rhythm. Absent: systolic murmur, diastolic murmur, rubs, gallop - GI/Abdominal GI/Abdominal exam: Present: soft, normal bowel sounds - Rectal Rectal exam: Present: deferred - Extremities Exam Extremities exam: Present: normal inspection - Back Exam Back exam: Present: normal inspection - Neurological Exam Neurological exam: Present: alert, oriented X3 - Psychiatric Psychiatric exam: Present: normal affect, normal mood - Skin Skin exam: Present: warm, dry, intact, normal color. Absent: rash ED Course Vital Signs 06/19/17 06/19/17 19:21 21:06 Temperature 97.7 F 97.7 F Pulse Rate 74 64 Respiratory 18 Rate Blood Pressure 132/85 Blood Pressure 122/76 [Left] O2 Sat by Pulse 97 97 Oximetry ED Medical Decision Making - Medical Decision Making pt presents for nose bleed after missing by medications x 1 week , nose bleed was intermittent last yesterday , there is no nose bleed at this time, exam: nose patent no polyps no obstruction no clots no bleed, plan: pt now has all bp medications taking as prescribed, afrin nose spray prn nose bleed, pt verbalized agreement and understanding of same pt for dc to self instable condition at this timel Critical care attestation.: If time is entered above; I have spent that time in minutes in the direct care of this critically ill patient, excluding procedure time. ED Disposition Clinical Impression: Epistaxis Disposition: DC-01 TO HOME OR SELFCARE Is pt being admited?: No Does the pt Need Aspirin: No Condition: Good Instructions: Epistaxis (ED) Additional Instructions: take afrin as needed for nose bleed take all medications as prescribed Referrals: PRIMARY CARE, [Primary Care Provider] - 3-5 Days Forms: Work/School Release Form(ED) Time of Disposition: 21:59
== END 2017-06-19 22:04 | disposition home or self-care (01) ==
LOC: ED 19:12
DX: R04.0 Epistaxis (principal); I10 Essential (primary) hypertension; K21.9 Gastro-esophageal reflux disease without esophagitis; E78.00 Pure hypercholesterolemia, unspecified; Z79.82 Long term (current) use of aspirin
CPT/HCPCS: 99282

== ENCOUNTER 2017-11-28 11:11 | Outpatient (CLI) | payer OTHER ==
--- NOTE | 2017-11-28 23:21 | XRay Report ---
FINAL REPORT PROCEDURE: XR KNEE BILAT 1-2V TECHNIQUE: Bilateral knee radiographs, AP and lateral views. HISTORY: HYPERTENSION,BIPOLAR DISORDER,GOUT,ADHD,DEPRESSION,PANIC ATTACKS COMPARISON: No prior studies are available for comparison. FINDINGS: Fracture (s) and/or Dislocation(s): None . Joint space(s): Normal. Soft tissues: Normal. Bone mineralization: Normal. Foreign bodies: None. IMPRESSION: Normal bilateral knee radiographs
--- NOTE | 2017-11-28 23:22 | XRay Report ---
FINAL REPORT PROCEDURE: XR SPINE LUMBOSACRAL 2-3V TECHNIQUE: Lumbar spine radiographs, frontal and lateral views. CPT 79807 HISTORY: HYPERTENSION,BIPOLAR DISORDER,GOUT,ADHD,DEPRESSION,PANIC ATTACKS COMPARISON: No prior studies are available for comparison. FINDINGS: Alignment: Normal . Vertebral body heights/Disk spaces: The heights of the vertebral bodies and the disc spaces are maintained. Mild degenerative changes of the osseous structures are noted.. Fracture(s): None . Facets: Normal . Bone mineralization: Normal . IMPRESSION: There is no evidence of an acute fracture. Mild arthritis
== END 2017-11-28 11:12 | disposition home or self-care (01) ==
LOC: XRAY 11:11
PROVIDERS: ATTEND Internal Medicine
DX: M47.896 Other spondylosis, lumbar region (principal); I10 Essential (primary) hypertension; F32.9 Major depressive disorder, single episode, unspecified; M10.9 Gout, unspecified; M19.90 Unspecified osteoarthritis, unspecified site; F90.9 Attention-deficit hyperactivity disorder, unspecified type; F20.9 Schizophrenia, unspecified; F39 Unspecified mood [affective] disorder; E78.00 Pure hypercholesterolemia, unspecified
CPT/HCPCS: 72100

== ENCOUNTER 2018-03-31 16:05 | Emergency (ER) | payer SELFPAY ==
[2018-03-31] MEDS ORDERED: TORADOL IM ONE (16:30)
[2018-03-31] MEDS ORDERED: TORADOL ONE (16:32)
[2018-03-31 17:43] LABS: Hematocrit 46.9 % (35.5-45.6); Hemoglobin 15.6 gm/dl (11.8-15.2); Mean Corpuscular HGB Conc 33 % (32-34); Mean Corpuscular Hemoglobin 28 pg (28-32); Mean Corpuscular Volume 84 fl (84-94); Platelet Count 180 K/mm3 (140-440); Red Blood Count 5.59 M/mm3 (3.65-5.03); Red Cell Distribution Width 14.1 % (13.2-15.2)
[2018-03-31 17:58] LABS: Bilirubin,Urine NEG (Negative); Blood,Urine SM (Negative); Color,Urine Yellow (Yellow); Mucus,Urine FEW /HPF; Protein,Urine <15 mg/dL mg/dL (Negative); Urobilinogen,Urine < 2.0 mg/dL (<2.0)
[2018-03-31 18:25] LABS: Alanine Aminotransferase 22 units/L (7-56); BUN/Creatinine Ratio 11; Blood Urea Nitrogen 9 mg/dL (9-20); Calcium 9.3 mg/dL (8.4-10.2); Hemolysis Index 11
[2018-04-01] MEDS ORDERED: ZOFRAN IV ONE (01:09)
[2018-04-01] MEDS ORDERED: SUBLIMAZE IV ONE (01:09)
--- NOTE | 2018-04-01 01:13 | Emergency Department Report ---
HPI - General Chief Complaint: Abdominal Pain Time Seen by Provider: 04/01/18 01:04 - HPI HPI: Room 8 The patient is a 53-year-old male presenting with a chief complaint of left flank pain. The patient states his pain began approximately 2-3 days ago with intermittent pain in the left flank that was sharp in nature. The patient states today the pain became constant. The patient states the pain feels consistent with previous kidney stones. Patient denies nausea/vomiting, hematuria or dysuria. Patient gives his pain a score of 8/10 Location: Left flank Duration: 2-3 days Quality: Sharp Severity: 8/10 Modifying factors: [see above] Context: [see above] Mode of transportation: [not driving] ED Past Medical Hx - Past Medical History Previous Medical History?: Yes Hx Hypertension: Yes Hx GERD: Yes Hx Kidney Stones: Yes Hx Psychiatric Treatment: Yes Additional medical history: gout. depression. bipolar. high cholesterol. 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 - Surgical History Past Surgical History?: Yes Additional Surgical History: angioplasty 2007 - Family History Family history: no significant - Social History Smoking Status: Never Smoker Substance Use Type: None (denies illicit drug use) - Medications Home Medications: Home Medications Medication Instructions Recorded Confirmed Last Taken Type Aspirin [Aspirin TAB] 325 mg PO QDAY 08/20/13 06/14/16 02/26/14 History Lisinopril [Zestril] 40 mg PO QDAY 08/20/13 06/14/16 02/26/14 History Metoprolol [Lopressor TAB] 100 mg PO BID 08/20/13 06/14/16 02/26/14 History Pravastatin [Pravachol] 40 mg PO QDAY 08/20/13 06/14/16 02/26/14 History Cyclobenzaprine HCl [Flexeril 5 MG 5 mg PO TID PRN #12 tab 12/15/16 Unknown Rx TAB] HYDROcodone/APAP 5-325 [[place] 1 - 2 each PO Q6HR PRN #20 tablet 04/01/18 Unknown Rx 5/325] Ketorolac [Toradol] 10 mg PO Q6H PRN #16 tablet 04/01/18 Unknown Rx Tamsulosin [Flomax] 0.4 mg PO QDAY #5 cap 04/01/18 Unknown Rx ED Review of Systems ROS: Stated complaint: CHEST/LEFT SIDE PAIN Other details as noted in HPI Constitutional: no symptoms reported Eyes: denies: eye pain ENT: denies: throat pain Respiratory: no symptoms reported Cardiovascular: denies: chest pain Endocrine: no symptoms reported Gastrointestinal: abdominal pain. denies: nausea, vomiting Genitourinary: denies: dysuria, hematuria Musculoskeletal: denies: back pain Neurological: headache Physical Exam - Physical Exam Vital Signs: Vital Signs 03/31/18 04/01/18 16:19 00:29 Temperature 98.1 F 98.3 F Pulse Rate 58 L 70 Respiratory 16 16 Rate Blood Pressure 142/93 Blood Pressure 133/75 [Left] O2 Sat by Pulse 96 96 Oximetry Physical Exam: GENERAL: The patient is well-developed well-nourished male lying on stretcher not appearing to be in acute distress. [] HEENT: Normocephalic. Atraumatic. Extraocular motions are intact. Patient has moist mucous membranes. NECK: Supple. Trachea midline CHEST/LUNGS: Clear to auscultation. There is no respiratory distress noted. HEART/CARDIOVASCULAR: Regular. There is no tachycardia. There is no gallop rub or murmur. ABDOMEN: Abdomen is soft, with mild discomfort to palpation in the left upper quadrant. Patient has normal bowel sounds. There is no abdominal distention. SKIN: There is no rash. There is no edema. There is no diaphoresis. NEURO: The patient is awake, alert, and oriented. The patient is cooperative. The patient has normal speech MUSCULOSKELETAL: There is no CVA tenderness. There is no evidence of acute injury. ED Course Vital Signs 03/31/18 04/01/18 16:19 00:29 Temperature 98.1 F 98.3 F Pulse Rate 58 L 70 Respiratory 16 16 Rate Blood Pressure 142/93 Blood Pressure 133/75 [Left] O2 Sat by Pulse 96 96 Oximetry ED Medical Decision Making - Lab Data Result diagrams: 03/31/18 17:00 03/31/18 17:00 Laboratory Tests 03/31/18 03/31/18 03/31/18 17:00 17:00 Unknown WBC 9.2 RBC 5.59 H Hgb 15.6 H Hct 46.9 H MCV 84 MCH 28 MCHC 33 RDW 14.1 Plt Count 180 Sodium 139 Potassium 3.9 Chloride 102.6 Carbon Dioxide 24 Anion Gap 16 BUN 9 Creatinine 0.8 Estimated GFR > 60 BUN/Creatinine Ratio 11 Glucose 109 H Calcium 9.3 Total Bilirubin 0.40 AST 25 ALT 22 Alkaline Phosphatase 87 Total Protein 7.0 Albumin 4.0 Albumin/Globulin Ratio 1.3 Urine Color Yellow Urine Turbidity Clear Urine pH 5.0 Ur Specific [place] 1.020 Urine Protein <15 mg/dl Urine Glucose (UA) Neg Urine Ketones Neg Urine Blood Sm Urine Nitrite Neg Urine Bilirubin Neg Urine Urobilinogen < 2.0 Ur Leukocyte Esterase Neg Urine WBC (Auto) 3.0 Urine RBC (Auto) 34.0 Urine Mucus Few - Radiology Data Radiology results: report reviewed (CT abdomen and pelvis), image reviewed (CT abdomen and pelvis) [facility] [address] [place] [address] Cat Scan Report Signed Patient: PHYLLIS GILLIAM MR#: [id number] : Acct:[id number] Age/Sex: 53 / M ADM Date: 03/31/18 Loc: ED Attending Dr: Ordering Physician: ERICA PONCE MD Date of Service: 04/01/18 Procedure(s): CT abdomen pelvis wo con Accession Number(s): [id number] cc: ERICA PONCE MD FINAL REPORT EXAM: CT ABDOMEN PELVIS WO CON HISTORY: left flank pain TECHNIQUE: Routine axial imaging was obtained of the abdomen and pelvis without oral or IV contrast. Sagittal and coronal reconstructions were reviewed. Comparison is made to the study of 07/16/2015. FINDINGS: The lung bases do not show acute infiltrates or effusions. The liver, gallbladder, biliary tree, pancreas, spleen , and adrenal glands appear normal. The left kidney reveals mild hydronephrosis with perinephric stranding. There is a partially obstructing stone in the distal left ureter measuring 2.5 mm in diameter. No additional left-sided stones are seen. The right kidney reveals a punctate calcifications centrally. The abdominal aorta is normal in caliber. The bowel loops are normal in caliber and course. There are scattered uncomplicated diverticula in the colon. The appendix is not enlarged. There is no evidence of free fluid or adenopathy. In the pelvis the prostate gland and bladder appear normal. There is a small left inguinal hernia containing omental fat. The skeletal structures reveal mild arthritic changes lumbar spine. IMPRESSION: Mild left-sided hydronephrosis secondary to a partially obstructing 2.5 mm stone in the distal left ureter. Nonobstructing punctate calcifications central in the right kidney. Uncomplicated colonic diverticulosis. Normal appendix. Mild arthritic changes in the lumbar spine. Transcribed By: RB Dictated By: CINDI CHEATHAM MD Electronically Authenticated By: CINDI CHEATHAM MD Signed Date/Time: 04/01/18202 DD/ 2 TD/TT: 04/01/18202 - Differential Diagnosis renal colic, gastritis, peptic ulcer disease Critical care attestation.: If time is entered above; I have spent that time in minutes in the direct care of this critically ill patient, excluding procedure time. ED Disposition Clinical Impression: Acute left flank pain, Renal colic on left side Disposition: TO HOME OR SELFCARE Is pt being admited?: No Does the pt Need Aspirin: No Condition: Stable Instructions: Renal Colic (ED) Additional Instructions: Return to the emergency department immediately should you develop worsening symptoms, fever, inability to tolerate food or liquid or any other concerns. Prescriptions: HYDROcodone/APAP 5-325 [[place] 5/325] 1 - 2 each PO Q6HR PRN #20 tablet PRN Reason: Pain Ketorolac [Toradol] 10 mg PO Q6H PRN #16 tablet PRN Reason: Pain Tamsulosin [Flomax] 0.4 mg PO QDAY #5 cap Referrals: PRIMARY CARE, [Primary Care Provider] - 3-5 Days YUNIEL LINARES MD [Staff Physician] - 3-5 Days (Dr. Linares is a urologist. Please follow-up with him for further evaluation) Time of Disposition: 02:32
--- NOTE | 2018-04-01 02:04 | Cat Scan Report ---
FINAL REPORT EXAM: CT ABDOMEN PELVIS WO CON HISTORY: left flank pain TECHNIQUE: Routine axial imaging was obtained of the abdomen and pelvis without oral or IV contrast. Sagittal and coronal reconstructions were reviewed. Comparison is made to the study of 07/16/2015. FINDINGS: The lung bases do not show acute infiltrates or effusions. The liver, gallbladder, biliary tree, pancreas, spleen, and adrenal glands appear normal. The left kidney reveals mild hydronephrosis with perinephric stranding. There is a partially obstructing stone in the distal left ureter measuring 2.5 mm in diameter. No additional left-sided stones are seen. The right kidney reveals a punctate calcifications centrally. The abdominal aorta is normal in caliber. The bowel loops are normal in caliber and course. There are scattered uncomplicated diverticula in the colon. The appendix is not enlarged. There is no evidence of free fluid or adenopathy. In the pelvis the prostate gland and bladder appear normal. There is a small left inguinal hernia containing omental fat. The skeletal structures reveal mild arthritic changes lumbar spine. IMPRESSION: Mild left-sided hydronephrosis secondary to a partially obstructing 2.5 mm stone in the distal left ureter. Nonobstructing punctate calcifications central in the right kidney. Uncomplicated colonic diverticulosis. Normal appendix. Mild arthritic changes in the lumbar spine.
[2018-04-01 04:30] VITALS: BP 167/93
== END 2018-04-01 04:34 | disposition home or self-care (01) ==
LOC: ED 16:05
DX: N20.0 Calculus of kidney (principal); I10 Essential (primary) hypertension; K21.9 Gastro-esophageal reflux disease without esophagitis; M10.9 Gout, unspecified; Z98.62 Peripheral vascular angioplasty status; Z79.899 Other long term (current) drug therapy
CPT/HCPCS: 36415; 74176; 80053; 81001; 85027; 93005; 93010; 96372; 96374; 96375; 99284; J1885; J2405; J3010

== ENCOUNTER 2018-08-02 05:33 | Emergency (ER) | payer SELFPAY ==
[2018-08-02] MEDS ORDERED: TORADOL ONE (07:02)
[2018-08-02] MEDS ORDERED: TORADOL IM ONE (07:04)
[2018-08-02 07:23] LABS: Basophils # (Auto) 0.1 K/mm3 (0.0-0.1); Basophils % (Auto) 0.7 % (0.0-1.8); Eosinophils # (Auto) 0.1 K/mm3 (0.0-0.4); Eosinophils % (Auto) 1.1 % (0.0-4.3); Hematocrit 47.9 % (35.5-45.6); Hemoglobin 15.7 gm/dl (11.8-15.2); Lymphocytes # (Auto) 1.7 K/mm3 (1.2-5.4); Lymphocytes % (Auto) 15.4 % (13.4-35.0); Mean Corpuscular HGB Conc 33 % (32-34); Mean Corpuscular Volume 85 fl (84-94); Monocytes # (Auto) 0.6 K/mm3 (0.0-0.8); Monocytes % (Auto) 5.6 % (0.0-7.3); Platelet Count 209 K/mm3 (140-440); Red Blood Count 5.67 M/mm3 (3.65-5.03); Red Cell Distribution Width 14.2 % (13.2-15.2)
[2018-08-02 07:32] LABS: BUN/Creatinine Ratio 13; Blood Urea Nitrogen 14 mg/dL (9-20); Calcium 9.7 mg/dL (8.4-10.2); Hemolysis Index 5
[2018-08-02 07:44] LABS: Bilirubin,Urine NEG (Negative); Blood,Urine MOD (Negative); Color,Urine Yellow (Yellow); Mucus,Urine FEW /HPF; Protein,Urine <15 mg/dL mg/dL (Negative); Urobilinogen,Urine < 2.0 mg/dL (<2.0)
--- NOTE | 2018-08-02 08:39 | Emergency Department Report ---
ED Abdominal Pain HPI - General Chief Complaint: Abdominal Pain Stated Complaint: RIGHT SIDE AND ABDOMINAL PAIN Time Seen by Provider: 08/02/18 07:29 Source: patient, RN notes reviewed Mode of arrival: Ambulatory Limitations: No Limitations - History of Present Illness Initial Comments: This is a 53-year-old gentleman with a history of kidney stones, who presents to the ER with a complaint of nontraumatic right-sided flank pain, similar to prior episodes of kidney stones. The pain is mostly resolved, he was given ketorolac prior to my evaluation, he basically has no pain at this point time. He denies testicular pain, nausea, vomiting, fevers, chills, irritative/obstructive urinary symptoms. He is smiling, walking around the ER, and no acute distress, asking to eat breakfast, and asking to take his blood pressure medications. He also endorses readiness for discharge. MD Complaint: flank pain -: Gradual Location: R flank Radiation: LUQ Migration to: no migration Severity scale (0 -10): 0 Consistency: now resolved Improves With: medication Associated Symptoms: nausea (now resolved). denies: vomiting, diarrhea, fever, chills, constipation, dysuria, hematemesis, hematochezia, melena, hematuria, anorexia, syncope - Related Data Home Medications Medication Instructions Recorded Confirmed Last Taken Aspirin [Aspirin TAB] 325 mg PO QDAY 08/20/13 06/14/16 02/26/14 Lisinopril [Zestril] 40 mg PO QDAY 08/20/13 06/14/16 02/26/14 Metoprolol [Lopressor TAB] 100 mg PO BID 08/20/13 06/14/16 02/26/14 Pravastatin [Pravachol] 40 mg PO QDAY 08/20/13 06/14/16 02/26/14 Previous Rx's Medication Instructions Recorded Last Taken Type Cyclobenzaprine HCl [Flexeril 5 MG 5 mg PO TID PRN #12 tab 12/15/16 Unknown Rx TAB] HYDROcodone/APAP 5-325 [[place] 1 - 2 each PO Q6HR PRN #20 tablet 04/01/18 Unknown Rx 5/325] Ketorolac [Toradol] 10 mg PO Q6H PRN #16 tablet 04/01/18 Unknown Rx Tamsulosin [Flomax] 0.4 mg PO QDAY #5 cap 04/01/18 Unknown Rx Acetaminophen [Tylenol Arthritis] 650 mg PO Q6HR PRN #30 tablet.er 08/02/18 Unknown Rx Ketorolac [Toradol] 10 mg PO Q6H PRN #20 tablet 08/02/18 Unknown Rx Ondansetron [Zofran Odt] 4 mg PO Q8HR PRN #20 tab.rapdis 08/02/18 Unknown Rx Tamsulosin [Flomax] 0.4 mg PO QDAY #30 cap 08/02/18 Unknown Rx Allergies Allergy/AdvReac Type Severity Reaction Status Date / Time No Known Allergies Allergy Verified 12/15/16 07:29 ED Review of Systems ROS: Stated complaint: RIGHT SIDE AND ABDOMINAL PAIN Other details as noted in HPI Constitutional: denies: fever Eyes: denies: eye discharge ENT: denies: epistaxis Respiratory: denies: cough Cardiovascular: denies: chest pain Gastrointestinal: abdominal pain Genitourinary: denies: urgency, dysuria, frequency, hematuria, testicular pain, testicular mass Musculoskeletal: denies: back pain Skin: denies: lesions Neurological: denies: headache, weakness Psychiatric: denies: anxiety ED Past Medical Hx - Past Medical History Hx Hypertension: Yes Hx GERD: Yes Hx Kidney Stones: Yes Hx Psychiatric Treatment: Yes Additional medical history: gout. depression. bipolar. high cholesterol. 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 - Surgical History Hx Coronary Stent: No Hx Pacemaker: No Hx Internal Defibrillator: No Additional Surgical History: angioplasty 2007 - Social History Smoking Status: Never Smoker Substance Use Type: None - Medications Home Medications: Home Medications Medication Instructions Recorded Confirmed Last Taken Type Aspirin [Aspirin TAB] 325 mg PO QDAY 08/20/13 06/14/16 02/26/14 History Lisinopril [Zestril] 40 mg PO QDAY 08/20/13 06/14/16 02/26/14 History Metoprolol [Lopressor TAB] 100 mg PO BID 08/20/13 06/14/16 02/26/14 History Pravastatin [Pravachol] 40 mg PO QDAY 08/20/13 06/14/16 02/26/14 History Cyclobenzaprine HCl [Flexeril 5 MG 5 mg PO TID PRN #12 tab 12/15/16 Unknown Rx TAB] HYDROcodone/APAP 5-325 [[place] 1 - 2 each PO Q6HR PRN #20 tablet 04/01/18 Unknown Rx 5/325] Ketorolac [Toradol] 10 mg PO Q6H PRN #16 tablet 04/01/18 Unknown Rx Tamsulosin [Flomax] 0.4 mg PO QDAY #5 cap 04/01/18 Unknown Rx Acetaminophen [Tylenol Arthritis] 650 mg PO Q6HR PRN #30 tablet.er 08/02/18 Unknown Rx Ketorolac [Toradol] 10 mg PO Q6H PRN #20 tablet 08/02/18 Unknown Rx Ondansetron [Zofran Odt] 4 mg PO Q8HR PRN #20 tab.rapdis 08/02/18 Unknown Rx Tamsulosin [Flomax] 0.4 mg PO QDAY #30 cap 08/02/18 Unknown Rx ED Physical Exam - General Limitations: No Limitations General appearance: alert, in no apparent distress, obese - Head Head exam: Present: atraumatic, normocephalic - Eye Eye exam: Present: normal appearance, EOMI. Absent: nystagmus - ENT ENT exam: Present: normal exam, normal orophraynx, mucous membranes moist, normal external ear exam - Neck Neck exam: Present: normal inspection, full ROM. Absent: tenderness, meningismus - Respiratory Respiratory exam: Present: normal lung sounds bilaterally. Absent: respiratory distress - Cardiovascular Cardiovascular Exam: Present: regular rate, normal rhythm, normal heart sounds. Absent: bradycardia, tachycardia, irregular rhythm, systolic murmur, diastolic murmur, rubs, gallop - GI/Abdominal GI/Abdominal exam: Present: soft, normal bowel sounds. Absent: distended, tenderness, guarding, rebound, rigid, pulsatile mass - Rectal Rectal exam: Present: deferred - exam: Present: normal inspection, other (there is no testicular tenderness. There is normal testicular lie bilaterally. There is normal cremasteric reflex bilaterally.). Absent: testicular tenderness External exam: Present: normal external exam, other (chaperoned by nurse Blessing Escalante) - Extremities Exam Extremities exam: Present: normal inspection, full ROM. Absent: tenderness - Back Exam Back exam: Present: normal inspection, full ROM. Absent: tenderness, CVA tenderness (R), paraspinal tenderness, vertebral tenderness - Neurological Exam Neurological exam: Present: alert, oriented X3, normal gait, other (Extraocular movements intact. Tongue midline. No facial droop. Facial sensation intact to light touch in the V1, V2, V3 distribution bilaterally. 5 and 5 strength in 4 extremities.. Sensation is intact to light touch in 4 extremities.). Absent: motor sensory deficit - Psychiatric Psychiatric exam: Present: normal affect, normal mood - Skin Skin exam: Present: warm, dry, intact, normal color. Absent: rash ED Course Vital Signs 08/02/18 06:55 Temperature 98.8 F Pulse Rate 60 Respiratory 18 Rate Blood Pressure 137/86 O2 Sat by Pulse 98 Oximetry ED Medical Decision Making - Lab Data Result diagrams: 08/02/18 07:11 08/02/18 07:11 Vital Signs 08/02/18 06:55 Temperature 98.8 F Pulse Rate 60 Respiratory 18 Rate Blood Pressure 137/86 O2 Sat by Pulse 98 Oximetry Lab Results 08/02/18 08/02/18 08/02/18 Range/Units 07:06 07:11 07:11 WBC 11.2 H (4.5-11.0) K/mm3 RBC 5.67 H (3.65-5.03) M/mm3 Hgb 15.7 H (11.8-15.2) gm/dl Hct 47.9 H (35.5-45.6) % MCV 85 (84-94) fl MCH 28 (28-32) pg MCHC 33 (32-34) % RDW 14.2 (13.2-15.2) % Plt Count 209 (140-440) K/mm3 Lymph % (Auto) 15.4 (13.4-35.0) % [place] % (Auto) 5.6 (0.0-7.3) % Eos % (Auto) 1.1 (0.0-4.3) % Baso % (Auto) 0.7 (0.0-1.8) % Lymph # 1.7 (1.2-5.4) K/mm3 Williamson # 0.6 (0.0-0.8) K/mm3 Eos # 0.1 (0.0-0.4) K/mm3 Baso # 0.1 (0.0-0.1) K/mm3 Seg Neutrophils % 77.2 H (40.0-70.0) % Seg Neutrophils # 8.6 H (1.8-7.7) K/mm3 Sodium 140 (137-145) mmol/L Potassium 4.9 (3.6-5.0) mmol/L Chloride 103.2 (98-107) mmol/L Carbon Dioxide 27 (22-30) mmol/L Anion Gap 15 mmol/L BUN 14 (9-20) mg/dL Creatinine 1.1 (0.8-1.5) mg/dL Estimated GFR > 60 ml/min BUN/Creatinine Ratio 13 % Glucose 112 H (75-100) mg/dL Calcium 9.7 (8.4-10.2) mg/dL Urine Color Yellow (Yellow) Urine Turbidity Clear (Clear) Urine pH 5.0 (5.0-7.0) Ur Specific [place] 1.018 (1.003-1.030) Urine Protein <15 mg/dl (Negative) mg/dL Urine Glucose (UA) Neg (Negative) mg/dL Urine Ketones Neg (Negative) mg/dL Urine Blood Mod (Negative) Urine Nitrite Neg (Negative) Urine Bilirubin Neg (Negative) Urine Urobilinogen < 2.0 (<2.0) mg/dL Ur Leukocyte Esterase Neg (Negative) Urine WBC (Auto) 6.0 (0.0-6.0) /HPF Urine RBC (Auto) 2.0 (0.0-6.0) /HPF Urine Mucus Few /HPF - Medical Decision Making Differential diagnosis, including but not limited to: Simple renal colic, now resolved Assessment and plan: 53-year-old gentleman with history of nontraumatic right flank pain, which he endorses similar to episodes of prior renal colic, which have confirmed on CT scan of the abdomen and pelvis in the past, now with resolved pain, round, without fever, chills, vomiting, lethargy. He is well- appearing and nontoxic appearing. The patient does not want a CT scan out of concern for radiation. We have made this decision together through surgery decision-making to not obtain additional CT scan as we're fairly confident that the most likely diagnosis is renal colic. This is also made in conjunction with the current "choosing wisely" recommendations, as per the [employer] clinical policy. There is no right lower quadrant tenderness, rebound or guarding, there is negative Rovsing sign, and the patient has an unremarkable benign genital exam. The patient was instructed to take his outpatient medications, and to follow up with an outpatient urologist or primary care doctor. Critical care attestation.: If time is entered above; I have spent that time in minutes in the direct care of this critically ill patient, excluding procedure time. ED Disposition Clinical Impression: History of right flank pain Disposition: TO HOME OR SELFCARE Is pt being admited?: No Does the pt Need Aspirin: No Condition: Stable Instructions: Renal Colic (ED) Additional Instructions: Take the medications as needed/directed. Eat plenty of fruits, fibers, vegetables, drink 6-8 cups of water on a daily basis. Follow up with the primary care doctor or urologist specialist within the next 4-6 weeks. Please return to the ER right away with new pain, worsened pain, migration of pain, projectile vomiting, change in mental status, confusion, inability to speak, and inability to breathe, new, worsening or different symptoms. Referrals: [facility] [Provider Group] - as needed [facility] [Provider Group] - as needed
[2018-08-02] MEDS ORDERED: TYLENOL ONE (08:57)
[2018-08-02] MEDS ORDERED: TYLENOL PO ONE (09:01)
[2018-08-02 09:04] VITALS: BP 128/70
== END 2018-08-02 09:05 | disposition home or self-care (01) ==
LOC: ED 05:33
DX: R10.9 Unspecified abdominal pain (principal); I10 Essential (primary) hypertension; K21.9 Gastro-esophageal reflux disease without esophagitis; M10.9 Gout, unspecified; F31.9 Bipolar disorder, unspecified; E78.00 Pure hypercholesterolemia, unspecified; Z79.82 Long term (current) use of aspirin; Z87.442 Personal history of urinary calculi
CPT/HCPCS: 36415; 80048; 81001; 85025; 96372; 99283; J1885

== ENCOUNTER 2018-10-19 10:07 | Emergency (ER) | payer OTHER ==
[2018-10-19 10:12] VITALS: BP 141/81
[2018-10-19] MEDS ORDERED: TYLENOL PO ONE (11:43)
--- NOTE | 2018-10-19 12:13 | Emergency Department Report ---
ED Recheck HPI - General Chief Complaint: High BP Stated Complaint: HBP Time Seen by Provider: 10/19/18 10:58 Source: patient Mode of arrival: Ambulatory Limitations: No Limitations - History of Present Illness Initial Comments: This is a 53-year-old male nontoxic, well nourished in appearance, no acute signs of distress presents to the ED with c/o of intermittent headache and uncontrolled HTN. Patient describes headache as diffuse with level of 3 out of 10. Patient denies thunderclap headache. Patient denies any radiation of pain. Patient denies any head trauma. Patient denies any visual changes. Patient denies worse headache. Patient stated has been taking his blood pressure medications but blood pressure goes up and down throughout the day. Patient denies any numbness, tingling, fever, chills, nausea, vomiting, chest pain, shortness of breath, stiff neck. Patient denies facial drooping or one sided weakness. Patient denies any radiation of pain. Patient denies any allergies. -: month(s) Symptoms Since Prior Visit: no new symptoms Associated Symptoms: none. denies: fever, chills, chest pain, shortness of breath, rash, malaise, [place], abdominal pain - Related Data Home Medications Medication Instructions Recorded Confirmed Last Taken Aspirin [Aspirin TAB] 325 mg PO QDAY 08/20/13 06/14/16 02/26/14 Lisinopril [Zestril] 40 mg PO QDAY 08/20/13 06/14/16 02/26/14 Metoprolol [Lopressor TAB] 100 mg PO BID 08/20/13 06/14/16 02/26/14 Pravastatin [Pravachol] 40 mg PO QDAY 08/20/13 06/14/16 02/26/14 Previous Rx's Medication Instructions Recorded Last Taken Type Cyclobenzaprine HCl [Flexeril 5 MG 5 mg PO TID PRN #12 tab 12/15/16 Unknown Rx TAB] HYDROcodone/APAP 5-325 [[place] 1 - 2 each PO Q6HR PRN #20 tablet 04/01/18 Unknown Rx 5/325] Ketorolac [Toradol] 10 mg PO Q6H PRN #16 tablet 04/01/18 Unknown Rx Tamsulosin [Flomax] 0.4 mg PO QDAY #5 cap 04/01/18 Unknown Rx Acetaminophen [Tylenol Arthritis] 650 mg PO Q6HR PRN #30 tablet.er 08/02/18 Unknown Rx Ketorolac [Toradol] 10 mg PO Q6H PRN #20 tablet 08/02/18 Unknown Rx Ondansetron [Zofran Odt] 4 mg PO Q8HR PRN #20 tab.rapdis 08/02/18 Unknown Rx Tamsulosin [Flomax] 0.4 mg PO QDAY #30 cap 08/02/18 Unknown Rx Allergies Allergy/AdvReac Type Severity Reaction Status Date / Time No Known Allergies Allergy Verified 10/19/18 10:09 ED Review of Systems ROS: Stated complaint: HBP Other details as noted in HPI Constitutional: denies: chills, fever Eyes: denies: eye pain, eye discharge, vision change ENT: denies: ear pain, throat pain Respiratory: denies: cough, shortness of breath, wheezing Cardiovascular: denies: chest pain, palpitations Endocrine: no symptoms reported Gastrointestinal: denies: abdominal pain, nausea, diarrhea Genitourinary: denies: urgency, dysuria Musculoskeletal: denies: back pain, joint swelling, arthralgia Skin: denies: rash, lesions Neurological: headache. denies: weakness, paresthesias Psychiatric: denies: anxiety, depression Hematological/Lymphatic: denies: easy bleeding, easy bruising ED Past Medical Hx - Past Medical History Hx Hypertension: Yes Hx GERD: Yes Hx Kidney Stones: Yes Hx Psychiatric Treatment: Yes (bipolar, depression) Additional medical history: gout. high cholesterol. 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 - Surgical History Hx Coronary Stent: No Hx Pacemaker: No Hx Internal Defibrillator: No Additional Surgical History: angioplasty 2007 - Social History Smoking Status: Never Smoker Substance Use Type: None - Medications Home Medications: Home Medications Medication Instructions Recorded Confirmed Last Taken Type Aspirin [Aspirin TAB] 325 mg PO QDAY 08/20/13 06/14/16 02/26/14 History Lisinopril [Zestril] 40 mg PO QDAY 08/20/13 06/14/16 02/26/14 History Metoprolol [Lopressor TAB] 100 mg PO BID 08/20/13 06/14/16 02/26/14 History Pravastatin [Pravachol] 40 mg PO QDAY 08/20/13 06/14/16 02/26/14 History Cyclobenzaprine HCl [Flexeril 5 MG 5 mg PO TID PRN #12 tab 12/15/16 Unknown Rx TAB] HYDROcodone/APAP 5-325 [[place] 1 - 2 each PO Q6HR PRN #20 tablet 04/01/18 Unknown Rx 5/325] Ketorolac [Toradol] 10 mg PO Q6H PRN #16 tablet 04/01/18 Unknown Rx Tamsulosin [Flomax] 0.4 mg PO QDAY #5 cap 04/01/18 Unknown Rx Acetaminophen [Tylenol Arthritis] 650 mg PO Q6HR PRN #30 tablet.er 08/02/18 Unknown Rx Ketorolac [Toradol] 10 mg PO Q6H PRN #20 tablet 08/02/18 Unknown Rx Ondansetron [Zofran Odt] 4 mg PO Q8HR PRN #20 tab.rapdis 08/02/18 Unknown Rx Tamsulosin [Flomax] 0.4 mg PO QDAY #30 cap 08/02/18 Unknown Rx ED Physical Exam - General Limitations: No Limitations General appearance: alert, in no apparent distress - Head Head exam: Present: atraumatic, normocephalic - Eye Eye exam: Present: normal appearance - Neck Neck exam: Present: normal inspection, full ROM - Rectal Rectal exam: Present: deferred - Extremities Exam Extremities exam: Present: normal inspection, full ROM - Back Exam Back exam: Present: normal inspection, full ROM - Neurological Exam Neurological exam: Present: alert, oriented X3, normal gait - Psychiatric Psychiatric exam: Present: normal affect, normal mood - Skin Skin exam: Present: warm, dry, intact, normal color. Absent: rash ED Course Vital Signs 10/19/18 10/19/18 10:09 12:03 Temperature 98 F Pulse Rate 72 Respiratory 18 18 Rate Blood Pressure 141/81 O2 Sat by Pulse 95 Oximetry - Reevaluation(s) Reevaluation #1: 10/19/18 12:15 Patient is speaking in full sentences with no signs of distress noted. ED Recheck MDM - Medical Decision Making This is a 53-year-old male that presents with headache. Patient is stable and was examined by me. Patient is neurologically stable. There is no stiff neck or neck pain. Vital signs are stable. Patient is afebrile. Patient received Tylenol which she stated her symptoms of headache has subsided. Patient was instructed to keep a daily diary of blood pressure and presented to primary care doctor. Currently blood pressure in the ER is not significantly abnormal. Patient does have a primary care doctor/cath lab nurse as he stated. A CT of head has been obtained. Patient was no where to be found after the treatment. I called number on file with wrong number listed. Patient left AMA. Critical care attestation.: If time is entered above; I have spent that time in minutes in the direct care of this critically ill patient, excluding procedure time. ED Disposition Clinical Impression: Headache Qualifiers: Headache type: unspecified Headache chronicity pattern: unspecified pattern Intractability: not intractable Qualified Code(s): R51 - Headache HTN (hypertension) Qualifiers: Hypertension type: unspecified Qualified Code(s): I10 - Essential (primary) hypertension Disposition: DC LEFT AGAINST MED ADVICE Is pt being admited?: No Does the pt Need Aspirin: No Condition: Undetermined
== END 2018-10-19 12:45 | disposition left against medical advice (07) ==
LOC: ED 10:07
DX: R51 Headache (principal); I10 Essential (primary) hypertension; K21.9 Gastro-esophageal reflux disease without esophagitis; F31.9 Bipolar disorder, unspecified; E78.00 Pure hypercholesterolemia, unspecified; Z87.442 Personal history of urinary calculi
CPT/HCPCS: 99281

== ENCOUNTER 2018-12-01 09:56 | Emergency (ER) | payer OTHER ==
[2018-12-01 10:49] LABS: Bilirubin,Urine NEG (Negative); Blood,Urine NEG (Negative); Color,Urine Amber (Yellow); Mucus,Urine 3+ /HPF; Urobilinogen,Urine < 2.0 mg/dL (<2.0)
[2018-12-01] MEDS ORDERED: TORADOL IM ONE (11:19)
[2018-12-01] MEDS ORDERED: PYRIDIUM PO ONE (11:19)
--- NOTE | 2018-12-01 12:07 | Cat Scan Report ---
CT ABDOMEN PELVIS WITHOUT CONTRAST: HISTORY: Recent right obstructive uropathy, worsening pain. COMPARISON: 11/22/18. TECHNIQUE: Helical CT in 1.25mm intervals without IV contrast. Sagittal and coronal reconstructions. FINDINGS: Lung bases: Normal. Liver: Normal. Biliary system: Normal. Pancreas: Normal. Spleen: Normal. Kidneys/ureters/bladder: Diffuse punctate calyceal stones are identified in both kidneys. A 7 mm calculus is identified along the intramural portion of the right UVJ or just within the bladder. Right hydronephrosis has essentially resolved since the previous exam. The bladder is mostly empty. Adrenal glands: Normal. Aorta: Normal. Intestines: No evidence for obstruction or focal inflammation. There are a few scattered diverticula in the distal colon. Appendix: Normal. Ascites: None. Adenopathy: None. Musculoskeletal: Moderate thoracolumbar spondylosis. IMPRESSION: 7 mm calculus at the right UVJ or just within the bladder. Right hydronephrosis has essentially resolved since the previous exam. Few punctate renal calyceal stones bilaterally. Mild diverticulosis of the colon.
--- NOTE | 2018-12-01 12:45 | Emergency Department Report ---
ED Male HPI - General Chief complaint: Urogenital-Male Stated complaint: CANT URINATE Time Seen by Provider: 12/01/18 11:10 Source: patient Mode of arrival: Ambulatory Limitations: No Limitations - History of Present Illness Initial comments: Patient is a 53-year-old male who presented with right flank pain approximately 9 days ago was diagnosed with a right-sided UVJ kidney stone. There was moderate hydronephrosis at that time. Patient states flank pain has improved however he is having dysuria. Patient denies any penile discharge. Patient states that he has sensation that he needs to urinate off throughout the day and night. Patient states that the pain in his bladder is a 10 out of 10 in severity and is worse when he urinates. - Related Data Home Medications Medication Instructions Recorded Confirmed Last Taken Aspirin 325 mg PO QDAY 08/20/13 06/14/16 02/26/14 Lisinopril [Zestril] 40 mg PO QDAY 08/20/13 06/14/16 02/26/14 Metoprolol [Lopressor TAB] 100 mg PO BID 08/20/13 06/14/16 02/26/14 Pravastatin [Pravachol] 40 mg PO QDAY 08/20/13 06/14/16 02/26/14 Previous Rx's Medication Instructions Recorded Last Taken Type Cyclobenzaprine HCl [Flexeril 5 MG 5 mg PO TID PRN #12 tab 12/15/16 Unknown Rx TAB] HYDROcodone/APAP 5-325 [[place] 1 - 2 each PO Q6HR PRN #20 tablet 04/01/18 Unknown Rx 5/325] Ketorolac [Toradol] 10 mg PO Q6H PRN #16 tablet 04/01/18 Unknown Rx Tamsulosin [Flomax] 0.4 mg PO QDAY #5 cap 04/01/18 Unknown Rx Acetaminophen [Tylenol Arthritis] 650 mg PO Q6HR PRN #30 tablet.er 08/02/18 Unknown Rx Ketorolac [Toradol] 10 mg PO Q6H PRN #20 tablet 08/02/18 Unknown Rx Ondansetron [Zofran ODT TAB] 4 mg PO Q8HR PRN #20 tab.rapdis 11/22/18 Unknown Rx Sulfamethoxazole/Trimethoprim 1 each PO BID 3 Days #6 tablet 05/18/19 Unknown Rx [Bactrim DS TAB] Tamsulosin [Flomax] 0.4 mg PO QDAY #30 cap 11/22/18 Unknown Rx traMADol [Ultram 50 MG tab] 50 mg PO Q6HR PRN #12 tablet 11/22/18 Unknown Rx Ciprofloxacin HCl [Ciprofloxacin 500 mg PO Q12HR #14 tab 12/01/18 Unknown Rx TAB] HYDROcodone/APAP 5-325 [[place] 1 each PO Q6HR PRN #14 tablet 12/01/18 Unknown Rx 5/325] Ibuprofen [Motrin 600 MG tab] 600 mg PO Q8H PRN #20 tablet 12/01/18 Unknown Rx Phenazopyridine [Pyridium] 100 mg PO TID #6 tab 12/01/18 Unknown Rx Allergies Allergy/AdvReac Type Severity Reaction Status Date / Time No Known Allergies Allergy Verified 12/01/18 09:57 ED Review of Systems ROS: Stated complaint: CANT URINATE Other details as noted in HPI Comment: All other systems reviewed and negative ED Past Medical Hx - Past Medical History Hx Hypertension: Yes Hx GERD: Yes Hx Kidney Stones: Yes Hx Psychiatric Treatment: Yes (bipolar, depression) Additional medical history: gout. high cholesterol. 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 KIDNEY STONE - Surgical History Hx Coronary Stent: No Hx Pacemaker: No Hx Internal Defibrillator: No Additional Surgical History: angioplasty 2007 - Social History Smoking Status: Never Smoker Substance Use Type: None - Medications Home Medications: Home Medications Medication Instructions Recorded Confirmed Last Taken Type Aspirin 325 mg PO QDAY 08/20/13 06/14/16 02/26/14 History Lisinopril [Zestril] 40 mg PO QDAY 08/20/13 06/14/16 02/26/14 History Metoprolol [Lopressor TAB] 100 mg PO BID 08/20/13 06/14/16 02/26/14 History Pravastatin [Pravachol] 40 mg PO QDAY 08/20/13 06/14/16 02/26/14 History Cyclobenzaprine HCl [Flexeril 5 MG 5 mg PO TID PRN #12 tab 12/15/16 Unknown Rx TAB] HYDROcodone/APAP 5-325 [[place] 1 - 2 each PO Q6HR PRN #20 tablet 04/01/18 Unknown Rx 5/325] Ketorolac [Toradol] 10 mg PO Q6H PRN #16 tablet 04/01/18 Unknown Rx Tamsulosin [Flomax] 0.4 mg PO QDAY #5 cap 04/01/18 Unknown Rx Acetaminophen [Tylenol Arthritis] 650 mg PO Q6HR PRN #30 tablet.er 08/02/18 Unknown Rx Ketorolac [Toradol] 10 mg PO Q6H PRN #20 tablet 08/02/18 Unknown Rx Ondansetron [Zofran ODT TAB] 4 mg PO Q8HR PRN #20 tab.rapdis 11/22/18 Unknown Rx Sulfamethoxazole/Trimethoprim 1 each PO BID 3 Days #6 tablet 11/22/18 Unknown Rx [Bactrim DS TAB] Tamsulosin [Flomax] 0.4 mg PO QDAY #30 cap 11/22/18 Unknown Rx traMADol [Ultram 50 MG tab] 50 mg PO Q6HR PRN #12 tablet 11/22/18 Unknown Rx Ciprofloxacin HCl [Ciprofloxacin 500 mg PO Q12HR #14 tab 12/01/18 Unknown Rx TAB] HYDROcodone/APAP 5-325 [[place] 1 each PO Q6HR PRN #14 tablet 12/01/18 Unknown Rx 5/325] Ibuprofen [Motrin 600 MG tab] 600 mg PO Q8H PRN #20 tablet 12/01/18 Unknown Rx Phenazopyridine [Pyridium] 100 mg PO TID #6 tab 12/01/18 Unknown Rx ED Physical Exam - General Limitations: No Limitations General appearance: alert, in no apparent distress - Head Head exam: Present: atraumatic, normocephalic - Eye Eye exam: Present: normal appearance, PERRL, EOMI - ENT ENT exam: Present: mucous membranes moist - Neck Neck exam: Present: normal inspection - Respiratory Respiratory exam: Present: normal lung sounds bilaterally. Absent: respiratory distress, wheezes, rales, rhonchi, stridor - Cardiovascular Cardiovascular Exam: Present: regular rate, normal rhythm. Absent: systolic murmur, diastolic murmur, rubs, gallop - GI/Abdominal GI/Abdominal exam: Present: soft, tenderness, normal bowel sounds. Absent: distended, guarding, rebound - Rectal Rectal exam: Present: deferred - Extremities Exam Extremities exam: Present: normal inspection - Back Exam Back exam: Present: normal inspection - Neurological Exam Neurological exam: Present: alert, oriented X3 - Psychiatric Psychiatric exam: Present: normal affect, normal mood - Skin Skin exam: Present: warm, dry, intact, normal color. Absent: rash ED Course Vital Signs 12/01/18 12/01/18 10:01 11:41 Temperature 98.3 F Pulse Rate 74 Respiratory 16 20 Rate Blood Pressure 105/57 O2 Sat by Pulse 94 Oximetry ED Medical Decision Making - Lab Data Labs 12/01/18 Unknown Urine Color [place] Urine Turbidity Slightly-cloudy Urine pH 5.0 Ur Specific [place] 1.025 Urine Protein 100 mg/dl Urine Glucose (UA) Neg Urine Ketones Neg Urine Blood Neg Urine Nitrite Neg Urine Bilirubin Neg Urine Urobilinogen < 2.0 Ur Leukocyte Esterase Tr Urine WBC (Auto) 53.0 H Urine RBC (Auto) 1.0 U Epithel Cells (Auto) < 1.0 Urine Mucus 3+ - Radiology Data [facility] [address] [id number] Cat Scan Report Signed Patient: PHYLLIS GILLIAM MR#: [id number] : 1965 Acct:[id number] Age/Sex: 53 / M ADM Date: 12/01/18 Loc: ED Attending Dr: Ordering Physician: RANJITH DUMONT MD Date of Service: 12/01/18 Procedure(s): CT abdomen pelvis wo con Accession Number(s): [id number] cc: RANJITH DUMONT MD CT ABDOMEN PELVIS WITHOUT CONTRAST: HISTORY: Recent right obstructive uropathy, worsening pain. COMPARISON: 11/22/18. TECHNIQUE: Helical CT in 1.25mm intervals without IV contrast. Sagittal and coronal reconstructions. FINDINGS: Lung bases: Normal. Liver: Normal. Biliary system: Normal. Pancreas: Normal. Spleen: Normal. Kidneys/ureters/bladder: Diffuse punctate calyceal stones are identified in both kidneys. A 7 mm calculus is identified along the intramural portion of the right UVJ or just within the bladder. Right hydronephrosis has essentially resolved since the previous exam. The bladder is mostly empty. Adrenal glands: Normal. Aorta: Normal. Intestines: No evidence for obstruction or focal inflammation. There are a few scattered diverticula in the distal colon. Appendix: Normal. Ascites: None. Adenopathy: None. Musculoskeletal: Moderate thoracolumbar spondylosis. IMPRESSION: 7 mm calculus at the right UVJ or just within the bladder. Right hydronephrosis has essentially resolved since the previous exam. Few punctate renal calyceal stones bilaterally. Mild diverticulosis of the colon. Transcribed By: TTR Dictated By: KAZ SHIELDS JR, MD Electronically Authenticated By: KAZ SHIELDS JR, MD Signed Date/Time: 12/01/18 1202 DD/ 1159 TD/TT: 12/01/18 1202 - Medical Decision Making Patient has shown some movement of his gallstone compared to his previous visit. Stone likely is in the bladder at this time. The patient's right kidney has decompressed and he no longer has hydronephrosis. Patient is continued to have a UTI. He was only placed on 3 days of Bactrim. Patient is to continue with his Flomax patient was given Vicodin for pain control as well as Pyridium. Patient started on Cipro for the next week and the patient will have follow-up with urology. Critical care attestation.: If time is entered above; I have spent that time in minutes in the direct care of this critically ill patient, excluding procedure time. ED Disposition Clinical Impression: Kidney stone Acute cystitis Qualifiers: Hematuria presence: without hematuria Qualified Code(s): N30.00 - Acute cystitis without hematuria Disposition: DC-01 TO HOME OR SELFCARE Is pt being admited?: No Does the pt Need Aspirin: No Condition: Stable Instructions: Urinary Tract Infection in Men (ED) Referrals: LENNY MONZON MD [Staff Physician] - 3-5 Days Time of Disposition: 12:47
[2018-12-01 12:56] VITALS: BP 106/70
== END 2018-12-01 12:54 | disposition home or self-care (01) ==
LOC: ED 09:56
DX: N30.00 Acute cystitis without hematuria (principal); N20.0 Calculus of kidney; K21.9 Gastro-esophageal reflux disease without esophagitis; I10 Essential (primary) hypertension; F31.9 Bipolar disorder, unspecified
CPT/HCPCS: 74176; 81001; 96372; 99284; J1885

== ENCOUNTER 2019-04-14 20:54 | Emergency (ER) | payer OTHER ==
[2019-04-14] MEDS ORDERED: ASPIRIN 325 MG TAB PO ONE (21:03)
[2019-04-14 21:05] VITALS: BP 152/88
--- NOTE | 2019-04-14 21:06 | Event Note ---
ED Screening Note Date of service: 04/14/19 Time: 21:05 ED Screening Note: 54 y o male [facility] of [facility]tn presents for cp This initial assessment/diagnostic orders/clinical plan/treatment(s) is/are subject to change based on patients health status, clinical progression and re- assessment by fellow clinical providers in the ED. Further treatment and workup at subsequent clinical providers discretion. Patient/guardian urged not to elope from the ED as their condition may be serious if not clinically assessed and managed. Initial orders include: labs ekg
[2019-04-14 21:43] LABS: Basophils # (Auto) 0.1 K/mm3 (0.0-0.1); Basophils % (Auto) 1.5 % (0.0-1.8); Eosinophils # (Auto) 0.2 K/mm3 (0.0-0.4); Eosinophils % (Auto) 2.2 % (0.0-4.3); Hematocrit 45.4 % (35.5-45.6); Hemoglobin 15.5 gm/dl (11.8-15.2); Lymphocytes # (Auto) 2.9 K/mm3 (1.2-5.4); Lymphocytes % (Auto) 29.6 % (13.4-35.0); Mean Corpuscular HGB Conc 34 % (32-34); Mean Corpuscular Volume 84 fl (84-94); Monocytes # (Auto) 0.9 K/mm3 (0.0-0.8); Monocytes % (Auto) 9.2 % (0.0-7.3); Platelet Count 182 K/mm3 (140-440); Red Blood Count 5.43 M/mm3 (3.65-5.03); Red Cell Distribution Width 14.1 % (13.2-15.2)
[2019-04-14 21:57] LABS: BUN/Creatinine Ratio 16; Blood Urea Nitrogen 14 mg/dL (9-20); Calcium 9.4 mg/dL (8.4-10.2); Hemolysis Index 18
--- NOTE | 2019-04-14 22:34 | XRay Report ---
CHEST 2 VIEWS INDICATION / CLINICAL INFORMATION: Chest Pain. COMPARISON: None available. FINDINGS: SUPPORT DEVICES: None. HEART / MEDIASTINUM: No significant abnormality. LUNGS / PLEURA: No significant pulmonary or pleural abnormality. No pneumothorax. ADDITIONAL FINDINGS: No significant additional findings. IMPRESSION: 1. No acute finding. Signer Name: Esa Sun MD Signed: 04/14/2019 10:29 PM Workstation Name: [id number]
[2019-04-15] MEDS ORDERED: KETOROLAC 60 MG/2 ML INJ IM ONE (01:12)
--- NOTE | 2019-04-15 01:17 | Emergency Department Report ---
ED Chest Pain HPI - General Chief Complaint: Chest Pain Stated Complaint: CX PAIN Time Seen by Provider: 04/14/19 21:02 Source: patient, old records reviewed (neg stress test here Jun 2016) Mode of arrival: Ambulatory Limitations: No Limitations - History of Present Illness Initial Comments: 54-year-old male with past medical history CAD status post angioplasty in 2007, hypertension, GERD, obesity, elevated cholesterol, bipolar, and kidney stones also complains of left-sided chest pain 2-4 days. It is sharp, intermittent, worse with very deep inspiration and movement involving bending over and picking up things with his left hand. Patient states one week ago he bent over, picked up, and moved a sofa and a loveseat around the house. Patient denies shortness of breath, nausea, vomiting, diaphoresis, dizziness, recent travel, leg edema, or history of PE/DVT. Contrary to triage patient denies stent placement. He takes aspirin 325 mg daily. 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 Alfonso - Related Data Home Medications Medication Instructions Recorded Confirmed Last Taken Aspirin 325 mg PO QDAY 08/20/13 06/14/16 02/26/14 Lisinopril [Zestril] 40 mg PO QDAY 08/20/13 06/14/16 02/26/14 Metoprolol [Lopressor TAB] 100 mg PO BID 08/20/13 06/14/16 02/26/14 Pravastatin [Pravachol] 40 mg PO QDAY 08/20/13 06/14/16 02/26/14 Previous Rx's Medication Instructions Recorded Last Taken Type Cyclobenzaprine HCl [Flexeril 5 MG 5 mg PO TID PRN #12 tab 12/15/16 Unknown Rx TAB] HYDROcodone/APAP 5-325 [[place] 1 - 2 each PO Q6HR PRN #20 tablet 04/01/18 Unknown Rx 5/325] Ketorolac [Toradol] 10 mg PO Q6H PRN #16 tablet 04/01/18 Unknown Rx Tamsulosin [Flomax] 0.4 mg PO QDAY #5 cap 04/01/18 Unknown Rx Acetaminophen [Tylenol Arthritis] 650 mg PO Q6HR PRN #30 tablet.er 08/02/18 Unknown Rx Ketorolac [Toradol] 10 mg PO Q6H PRN #20 tablet 08/02/18 Unknown Rx Ondansetron [Zofran ODT TAB] 4 mg PO Q8HR PRN #20 tab.rapdis 11/22/18 Unknown Rx Sulfamethoxazole/Trimethoprim 1 each PO BID 3 Days #6 tablet 11/22/18 Unknown Rx [Bactrim DS TAB] Tamsulosin [Flomax] 0.4 mg PO QDAY #30 cap 11/22/18 Unknown Rx traMADol [Ultram 50 MG tab] 50 mg PO Q6HR PRN #12 tablet 11/22/18 Unknown Rx Ciprofloxacin HCl [Ciprofloxacin 500 mg PO Q12HR #14 tab 12/01/18 Unknown Rx TAB] HYDROcodone/APAP 5-325 [[place] 1 each PO Q6HR PRN #14 tablet 12/01/18 Unknown Rx 5/325] Phenazopyridine [Pyridium] 100 mg PO TID #6 tab 12/01/18 Unknown Rx Ibuprofen [Motrin 600 MG tab] 600 mg PO Q8H PRN #20 tablet 04/15/19 Unknown Rx traMADol [Ultram 50 MG tab] 50 mg PO Q6HR PRN #20 tablet 04/15/19 Unknown Rx Allergies Allergy/AdvReac Type Severity Reaction Status Date / Time No Known Allergies Allergy Verified 12/01/18 09:57 Heart Score - HEART Score History: Slightly suspicious EKG: Normal (similar to baseline ekg) Age: 45-65 Risk factors: > 3 risk factors or hx of atherosclerotic disease Troponin: < normal limit HEART Score: 3 ED Review of Systems ROS: Stated complaint: CX PAIN Other details as noted in HPI Comment: All other systems reviewed and negative ED Past Medical Hx - Past Medical History Previous Medical History?: Yes Hx Hypertension: Yes Hx GERD: Yes Hx Kidney Stones: Yes Hx Psychiatric Treatment: Yes (bipolar, depression) Additional medical history: gout. high cholesterol. 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 KIDNEY STONE - Surgical History Past Surgical History?: Yes Hx Coronary Stent: Yes (x1) Hx Pacemaker: No Hx Internal Defibrillator: No Additional Surgical History: angioplasty 2007 - Social History Smoking Status: Never Smoker Substance Use Type: None - Medications Home Medications: Home Medications Medication Instructions Recorded Confirmed Last Taken Type Aspirin 325 mg PO QDAY 08/20/13 06/14/16 02/26/14 History Lisinopril [Zestril] 40 mg PO QDAY 08/20/13 06/14/16 02/26/14 History Metoprolol [Lopressor TAB] 100 mg PO BID 08/20/13 06/14/16 02/26/14 History Pravastatin [Pravachol] 40 mg PO QDAY 08/20/13 06/14/16 02/26/14 History Cyclobenzaprine HCl [Flexeril 5 MG 5 mg PO TID PRN #12 tab 12/15/16 Unknown Rx TAB] HYDROcodone/APAP 5-325 [[place] 1 - 2 each PO Q6HR PRN #20 tablet 04/01/18 Unknown Rx 5/325] Ketorolac [Toradol] 10 mg PO Q6H PRN #16 tablet 04/01/18 Unknown Rx Tamsulosin [Flomax] 0.4 mg PO QDAY #5 cap 04/01/18 Unknown Rx Acetaminophen [Tylenol Arthritis] 650 mg PO Q6HR PRN #30 tablet.er 08/02/18 Unknown Rx Ketorolac [Toradol] 10 mg PO Q6H PRN #20 tablet 08/02/18 Unknown Rx Ondansetron [Zofran ODT TAB] 4 mg PO Q8HR PRN #20 tab.rapdis 11/22/18 Unknown Rx Sulfamethoxazole/Trimethoprim 1 each PO BID 3 Days #6 tablet 11/22/18 Unknown Rx [Bactrim DS TAB] Tamsulosin [Flomax] 0.4 mg PO QDAY #30 cap 11/22/18 Unknown Rx traMADol [Ultram 50 MG tab] 50 mg PO Q6HR PRN #12 tablet 11/22/18 Unknown Rx Ciprofloxacin HCl [Ciprofloxacin 500 mg PO Q12HR #14 tab 12/01/18 Unknown Rx TAB] HYDROcodone/APAP 5-325 [[place] 1 each PO Q6HR PRN #14 tablet 12/01/18 Unknown Rx 5/325] Phenazopyridine [Pyridium] 100 mg PO TID #6 tab 12/01/18 Unknown Rx Ibuprofen [Motrin 600 MG tab] 600 mg PO Q8H PRN #20 tablet 04/15/19 Unknown Rx traMADol [Ultram 50 MG tab] 50 mg PO Q6HR PRN #20 tablet 04/15/19 Unknown Rx ED Physical Exam - General Limitations: No Limitations - Other Other exam information: Gen.: No acute distress Head: Atraumatic Eyes: Normal appearance ENT: Moist mucous membranes Neck: Normal appearance, no posterior midline tenderness, no meningismus Chest: Clear to auscultation bilaterally, chest wall nontender blood pain reproducible with movement Cardiovascular: Regular rate and rhythm Abdomen: Normal appearance, soft, nontender, no rebound or guarding, normal bowel sounds Back: Normal appearance, nontender Extremity: Full range of motion, normal appearance, no Tenderness or edema Neuro: Alert oriented 3, clear speech, no focal motor or sensory deficit Psychiatric: Appropriate Skin: No rash ED Course Vital Signs 04/14/19 21:04 Temperature 98.6 F Pulse Rate 64 Respiratory 18 Rate Blood Pressure 152/88 O2 Sat by Pulse 94 Oximetry LENORE score - Lenore Score Age > 65: (0) No Aspirin use within the Past 7 Days: (1) Yes 3 or more CAD Risk Factors: (1) Yes 2 or more Angina events in past 24 hrs: (1) Yes Known CAD with more than 50% Stenosis: (0) No Elevated Cardiac Markers: (0) No ST Deviation Greater than 0.5mm: (0) No LENORE Score: 3 ED Medical Decision Making - Lab Data Result diagrams: 04/14/19 21:22 04/14/19 21:22 Lab Results 04/14/19 04/14/19 04/15/19 Range/Units 21:22 21:22 00:11 WBC 9.6 (4.5-11.0) K/mm3 RBC 5.43 H (3.65-5.03) M/mm3 Hgb 15.5 H (11.8-15.2) gm/dl Hct 45.4 (35.5-45.6) % MCV 84 (84-94) fl MCH 29 (28-32) pg MCHC 34 (32-34) % RDW 14.1 (13.2-15.2) % Plt Count 182 (140-440) K/mm3 Lymph % (Auto) 29.6 (13.4-35.0) % Davis % (Auto) 9.2 H (0.0-7.3) % Eos % (Auto) 2.2 (0.0-4.3) % Baso % (Auto) 1.5 (0.0-1.8) % Lymph # 2.9 (1.2-5.4) K/mm3 Davis # 0.9 H (0.0-0.8) K/mm3 Eos # 0.2 (0.0-0.4) K/mm3 Baso # 0.1 (0.0-0.1) K/mm3 Seg Neutrophils % 57.5 (40.0-70.0) % Seg Neutrophils # 5.6 (1.8-7.7) K/mm3 Sodium 140 (137-145) mmol/L Potassium 4.2 (3.6-5.0) mmol/L Chloride 104.0 (98-107) mmol/L Carbon Dioxide 25 (22-30) mmol/L Anion Gap 15 mmol/L BUN 14 (9-20) mg/dL Creatinine 0.9 (0.8-1.5) mg/dL Estimated GFR > 60 ml/min BUN/Creatinine Ratio 16 % Glucose 113 H (75-100) mg/dL Calcium 9.4 (8.4-10.2) mg/dL Troponin T < 0.010 < 0.010 (0.00-0.029) ng/mL - EKG Data -: EKG Interpreted by Pr EKG shows normal: sinus rhythm - EKG Data 04/15/19 01:39 repeat ekg reviewed, no acute ischemic changes - Radiology Data Radiology results: report reviewed CHEST 2 VIEWS INDICATION / CLINICAL INFORMATION: Chest Pain. COMPARISON: None available. FINDINGS: SUPPORT DEVICES: None. HEART / MEDIASTINUM: No significant abnormality. LUNGS / PLEURA: No significant pulmonary or pleural abnormality. No pneumothorax. ADDITIONAL FINDINGS: No significant additional findings. IMPRESSION: 1. No acute finding. - Medical Decision Making Presents to the hospital with complaints of sharp pain is reproduced with movement and deep inspiration after moving furniture. Patient has a EKG is u nchanged from previous. He has 2 negative troponins. He denies other associated symptoms suggestive of acute MO. Low suspicion for pulmonary embolism given lack shortness of breath, tachycardia, hypoxia, or DVT symptoms. Pt received Toradol in the ED. Will be discharged on anti-inflammatories as well as tramadol for pain. - Differential Diagnosis muscle strain, PE, MO, unstable angina Critical Care Time: No Critical care attestation.: If time is entered above; I have spent that time in minutes in the direct care of this critically ill patient, excluding procedure time. ED Disposition Clinical Impression: Musculoskeletal chest pain Disposition: TO HOME OR SELFCARE Is pt being admited?: No Does the pt Need Aspirin: No Condition: Stable Instructions: Chest Pain (ED) Additional Instructions: Take the medication as prescribed. Follow-up with your doctor or with the doctor/clinic provided. Return if symptoms worsen as indicated by your discharge instructions. Prescriptions: Ibuprofen [Motrin 600 MG tab] 600 mg PO Q8H PRN #20 tablet PRN Reason: Pain traMADol [Ultram 50 MG tab] 50 mg PO Q6HR PRN #20 tablet PRN Reason: Pain Referrals: SHREYAS ALFONSO MD [Staff Physician] - 2-3 Days Time of Disposition: 01:44
== END 2019-04-15 02:16 | disposition home or self-care (01) ==
LOC: ED 20:54
DX: R07.89 Other chest pain (principal)
CPT/HCPCS: 36415; 71046; 80048; 84484; 85025; 93005; 93010; 96372; 99284; J1885

== ENCOUNTER 2019-05-23 08:12 | Emergency (ER) | payer SELFPAY ==
[2019-05-23 08:20] VITALS: BP 126/93
[2019-05-23] MEDS ORDERED: IBUPROFEN 600 MG TAB PO ONE (08:50)
[2019-05-23] MEDS ORDERED: ACETAMINOPHEN 325 MG TAB PO ONE (08:50)
--- NOTE | 2019-05-23 08:50 | Emergency Department Report ---
ED General Adult HPI - General Chief complaint: Neck Pain/Injury Stated complaint: BAD PAINS/NECK PAIN Time Seen by Provider: 05/23/19 08:33 Source: patient, RN notes reviewed, old records reviewed Mode of arrival: Ambulatory Limitations: No Limitations - History of Present Illness Initial comments: This is a pleasant 54-year-old gentleman whom I have evaluated he is right-hand dominant, has a history of kidney stones, hypertension, obesity. He presents to the ER with a complaint of nontraumatic reproducible right anterior cervical muscular neck pain. The pain is present for 1 week. It is intermittent. He believes it started after heavy lifting. The pain sometimes radiates up to the right side of his face. There is no midline spinal pain, there is no weakness, numbness, incontinence or retention. He denies fever. He is taking Tylenol [id number], 500 mg, once every 12-24 hours. -: Gradual Location: neck Radiation: other Quality: aching Consistency: intermittent Improves with: rest Worsens with: movement - Related Data Home Medications Medication Instructions Recorded Confirmed Last Taken Aspirin 325 mg PO QDAY 08/20/13 06/14/16 02/26/14 Lisinopril [Zestril] 40 mg PO QDAY 08/20/13 06/14/16 02/26/14 Metoprolol [Lopressor TAB] 100 mg PO BID 08/20/13 06/14/16 02/26/14 Pravastatin [Pravachol] 40 mg PO QDAY 08/20/13 06/14/16 02/26/14 Previous Rx's Medication Instructions Recorded Last Taken Type Cyclobenzaprine HCl [Flexeril 5 MG 5 mg PO TID PRN #12 tab 12/15/16 Unknown Rx TAB] HYDROcodone/APAP 5-325 [[place] 1 - 2 each PO Q6HR PRN #20 tablet 04/01/18 Unknown Rx 5/325] Ketorolac [Toradol] 10 mg PO Q6H PRN #16 tablet 04/01/18 Unknown Rx Tamsulosin [Flomax] 0.4 mg PO QDAY #5 cap 04/01/18 Unknown Rx Acetaminophen [Tylenol Arthritis] 650 mg PO Q6HR PRN #30 tablet.er 08/02/18 Unknown Rx Ketorolac [Toradol] 10 mg PO Q6H PRN #20 tablet 08/02/18 Unknown Rx Ondansetron [Zofran ODT TAB] 4 mg PO Q8HR PRN #20 tab.rapdis 11/22/18 Unknown Rx Sulfamethoxazole/Trimethoprim 1 each PO BID 3 Days #6 tablet 11/22/18 Unknown Rx [Bactrim DS TAB] Tamsulosin [Flomax] 0.4 mg PO QDAY #30 cap 11/22/18 Unknown Rx traMADoL [Ultram 50 MG tab] 50 mg PO Q6HR PRN #12 tablet 11/22/18 Unknown Rx Ciprofloxacin HCl [Ciprofloxacin 500 mg PO Q12HR #14 tab 12/01/18 Unknown Rx TAB] HYDROcodone/APAP 5-325 [[place] 1 each PO Q6HR PRN #14 tablet 12/01/18 Unknown Rx 5/325] Phenazopyridine [Pyridium] 100 mg PO TID #6 tab 12/01/18 Unknown Rx Ibuprofen [Motrin 600 MG tab] 600 mg PO Q8H PRN #20 tablet 04/15/19 Unknown Rx traMADoL [Ultram 50 MG tab] 50 mg PO Q6HR PRN #20 tablet 04/15/19 Unknown Rx Acetaminophen [Tylenol] 650 mg PO Q4HR PRN #60 capsule 05/23/19 Unknown Rx Ibuprofen [Motrin] 600 mg PO Q8H PRN #30 tablet 05/23/19 Unknown Rx Methyl Salicylate/Menthol [Mahomet 60 gm TP Q6HR PRN #1 gel..gram. 05/23/19 Unknown Rx Dixon Active 16%-8% Gel] Allergies Allergy/AdvReac Type Severity Reaction Status Date / Time No Known Allergies Allergy Verified 12/01/18 09:57 ED Review of Systems ROS: Stated complaint: BAD PAINS/NECK PAIN Other details as noted in HPI Constitutional: denies: fever Eyes: denies: eye discharge ENT: denies: congestion Respiratory: denies: wheezing Cardiovascular: denies: chest pain, syncope Gastrointestinal: denies: abdominal pain Musculoskeletal: myalgia, other Neurological: denies: weakness, numbness, paresthesias Hematological/Lymphatic: denies: easy bleeding ED Past Medical Hx - Past Medical History Previous Medical History?: Yes Hx Hypertension: Yes Hx GERD: Yes Hx Kidney Stones: Yes Hx Psychiatric Treatment: Yes (bipolar, depression) Additional medical history: gout. high cholesterol. 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 KIDNEY STONE - Surgical History Past Surgical History?: Yes Hx Coronary Stent: Yes (x1) Hx Pacemaker: No Hx Internal Defibrillator: No Additional Surgical History: angioplasty 2007 - Social History Smoking Status: Never Smoker - Medications Home Medications: Home Medications Medication Instructions Recorded Confirmed Last Taken Type Aspirin 325 mg PO QDAY 08/20/13 06/14/16 02/26/14 History Lisinopril [Zestril] 40 mg PO QDAY 08/20/13 06/14/16 02/26/14 History Metoprolol [Lopressor TAB] 100 mg PO BID 08/20/13 06/14/16 02/26/14 History Pravastatin [Pravachol] 40 mg PO QDAY 08/20/13 06/14/16 02/26/14 History Cyclobenzaprine HCl [Flexeril 5 MG 5 mg PO TID PRN #12 tab 12/15/16 Unknown Rx TAB] HYDROcodone/APAP 5-325 [[place] 1 - 2 each PO Q6HR PRN #20 tablet 04/01/18 Unknown Rx 5/325] Ketorolac [Toradol] 10 mg PO Q6H PRN #16 tablet 04/01/18 Unknown Rx Tamsulosin [Flomax] 0.4 mg PO QDAY #5 cap 04/01/18 Unknown Rx Acetaminophen [Tylenol Arthritis] 650 mg PO Q6HR PRN #30 tablet.er 08/02/18 Unknown Rx Ketorolac [Toradol] 10 mg PO Q6H PRN #20 tablet 08/02/18 Unknown Rx Ondansetron [Zofran ODT TAB] 4 mg PO Q8HR PRN #20 tab.rapdis 11/22/18 Unknown Rx Sulfamethoxazole/Trimethoprim 1 each PO BID 3 Days #6 tablet 11/22/18 Unknown Rx [Bactrim DS TAB] Tamsulosin [Flomax] 0.4 mg PO QDAY #30 cap 11/22/18 Unknown Rx traMADoL [Ultram 50 MG tab] 50 mg PO Q6HR PRN #12 tablet 11/22/18 Unknown Rx Ciprofloxacin HCl [Ciprofloxacin 500 mg PO Q12HR #14 tab 12/01/18 Unknown Rx TAB] HYDROcodone/APAP 5-325 [[place] 1 each PO Q6HR PRN #14 tablet 12/01/18 Unknown Rx 5/325] Phenazopyridine [Pyridium] 100 mg PO TID #6 tab 12/01/18 Unknown Rx Ibuprofen [Motrin 600 MG tab] 600 mg PO Q8H PRN #20 tablet 04/15/19 Unknown Rx traMADoL [Ultram 50 MG tab] 50 mg PO Q6HR PRN #20 tablet 04/15/19 Unknown Rx Acetaminophen [Tylenol] 650 mg PO Q4HR PRN #60 capsule 05/23/19 Unknown Rx Ibuprofen [Motrin] 600 mg PO Q8H PRN #30 tablet 05/23/19 Unknown Rx Methyl Salicylate/Menthol [Mahomet 60 gm TP Q6HR PRN #1 gel..gram. 05/23/19 Unknown Rx Dixon Active 16%-8% Gel] ED Physical Exam - General Limitations: No Limitations General appearance: alert, in no apparent distress - Head Head exam: Present: atraumatic, normocephalic - Eye Eye exam: Present: normal appearance, PERRL, EOMI, other (visual acuity intact to finger counting, color perception, reading at a close distance). Absent: nystagmus - ENT ENT exam: Present: normal exam, normal orophraynx, mucous membranes moist, normal external ear exam - Neck Neck exam: Present: normal inspection, tenderness (there is reproducible right sided anterior cervical muscular tenderness. There is no redness, pus, streaking, crepitus. There is no bruit. There is no expansile hematoma. There is no hematoma. Full range of motion to the neck.), full ROM. Absent: meningismus - Respiratory Respiratory exam: Present: normal lung sounds bilaterally. Absent: respiratory distress - Cardiovascular Cardiovascular Exam: Present: regular rate, normal rhythm, normal heart sounds. Absent: bradycardia, tachycardia, irregular rhythm, systolic murmur, diastolic murmur, rubs, gallop - GI/Abdominal GI/Abdominal exam: Present: soft. Absent: distended, tenderness, guarding, rebound, rigid, pulsatile mass - Rectal Rectal exam: Present: deferred - Extremities Exam Extremities exam: Present: normal inspection, full ROM, other (2+ pulses noted in the bilateral upper, lower extremities. There is no long bone tenderness. Musculoskeletal compartments are soft. The pelvis is stable.). Absent: pedal edema, calf tenderness - Back Exam Back exam: Present: normal inspection, full ROM. Absent: tenderness, CVA tenderness (R), CVA tenderness (L), muscle spasm, vertebral tenderness - Neurological Exam Neurological exam: Present: alert, normal gait, other (there is no facial droop. The tongue is midline. Extraocular movements are intact bilaterally. Patient speaking in full complete sentences. Shoulder shrug is intact bilaterally. Hearing is grossly intact bilaterally. Visual acuity intact to finger counting and color perception at a close distance. 5/5 strength 4 extremities. Sensation intact to light touch in 4 extremities.). Absent: motor sensory deficit - Psychiatric Psychiatric exam: Present: normal affect, normal mood - Skin Skin exam: Present: warm, dry, intact, normal color. Absent: rash ED Course Vital Signs 05/23/19 08:19 Temperature 98.5 F Pulse Rate 86 Respiratory 18 Rate Blood Pressure 126/93 O2 Sat by Pulse 95 Oximetry ED Medical Decision Making - Medical Decision Making Vital Signs 05/23/19 08:19 Temperature 98.5 F Pulse Rate 86 Respiratory 18 Rate Blood Pressure 126/93 O2 Sat by Pulse 95 Oximetry Differential diagnosis, including not limited to: Muscular neck pain Assessment and plan: 54-year-old pleasant gentleman, with reproducible right- sided muscular neck tenderness. He is afebrile with reassuring vital signs. Cranial nerve exam unremarkable, neurologic exam unremarkable, patient in no acute distress, with intact range of motion. He can be treated with Tylenol, ibuprofen, ice packs, warm packs, and Mahomet balm ointment. Critical care attestation.: If time is entered above; I have spent that time in minutes in the direct care of this critically ill patient, excluding procedure time. ED Disposition Clinical Impression: Neck muscle strain Qualifiers: Encounter type: initial encounter Qualified Code(s): S16.1XXA - Strain of muscle, fascia and tendon at neck level, initial encounter Disposition: - TO HOME OR SELFCARE Is pt being admited?: No Does the pt Need Aspirin: No Condition: Stable Additional Instructions: Rest, avoid heavy lifting, and avoid strenuous physical activities. Alternate ice packs and heat packs to affected area. Patient may also use ibuprofen, 600 mg by mouth, with food, every 6 hours as needed for pain. Alternating with Tylenol, 650 mg by mouth, every 4-6 hours for pain. Maximum daily dose Tylenol four grams per 24 hours. Follow-up with the primary care doctor within the next month. Return to emergency room right away with new, worsened, different symptoms, or symptoms not present on the initial emergency room evaluation. Referrals: [facility] [Provider Group] - 3-5 Days [facility] [Provider Group] - 3-5 Days
== END 2019-05-23 09:25 | disposition home or self-care (01) ==
LOC: ED 08:12
DX: S16.1XXA Strain of muscle, fascia and tendon at neck level, initial encounter (principal); I10 Essential (primary) hypertension; K21.9 Gastro-esophageal reflux disease without esophagitis; F31.9 Bipolar disorder, unspecified; E78.00 Pure hypercholesterolemia, unspecified; Z87.442 Personal history of urinary calculi; Z95.5 Presence of coronary angioplasty implant and graft; Z79.899 Other long term (current) drug therapy; X58.XXXA Exposure to other specified factors, initial encounter; Y93.89 Activity, other specified; Y92.89 Other specified places as the place of occurrence of the external cause; Y99.8 Other external cause status

== ENCOUNTER 2020-03-21 17:53 | Emergency (ER) | payer SELFPAY ==
--- NOTE | 2020-03-21 17:56 | Emergency Department Report ---
Blank Doc - Documentation Documentation: 55-year-old male that presents with nausea, vomiting, and generalized weakness. This initial assessment/diagnostic orders/clinical plan/treatment(s) is/are subject to change based on patient's health status, clinical progression and re- assessment by fellow clinical providers in the ED. Further treatment and workup at subsequent clinical providers discretion. Patient/guardians urged not to elope from the ED as their condition may be serious if not clinically assessed and managed. Initial orders include: 1- Patient sent to [facility] for further evaluation and treatment 2- UA 3- labs
[2020-03-21 18:09] VITALS: BP 125/70
[2020-03-21 18:18] LABS: Hematocrit 48.8 % (35.5-45.6); Hemoglobin 16.2 gm/dl (11.8-15.2); Mean Corpuscular HGB Conc 33 % (32-34); Mean Corpuscular Volume 84 fl (84-94); Platelet Count 189 K/mm3 (140-440); Red Cell Distribution Width 14.8 % (13.2-15.2)
[2020-03-21 18:31] LABS: Alanine Aminotransferase 23 units/L (7-56); Albumin 3.9 g/dL (3.9-5); BUN/Creatinine Ratio 16; Blood Urea Nitrogen 14 mg/dL (9-20); Calcium 9.6 mg/dL (8.4-10.2); Hemolysis Index 18
[2020-03-21] MEDS ORDERED: LIDOCAINE VISCOUS 2% 15 ML ORAL LIQD PO ONE (20:54)
[2020-03-21] MEDS ORDERED: PROMETHAZINE 25 MG TAB PO ONE (20:54)
[2020-03-21] MEDS ORDERED: ALUM-MAG HYDROXIDE-SIMETHICONE 200-200-20MG/5ML ORAL LIQD 30 ML PO ONE (20:54)
[2020-03-21] MEDS ORDERED: DICYCLOMINE 10 MG/5 ML ORAL LIQD PO ONE (21:00)
--- NOTE | 2020-03-21 21:13 | Emergency Department Report ---
ED General Adult HPI - General Chief complaint: Abdominal Pain Stated complaint: WEAK/SICK AT STOMACH Time Seen by Provider: 03/21/20 17:55 Source: patient Mode of arrival: Ambulatory Limitations: No Limitations - History of Present Illness Initial comments: Patient is a 55-year-old male no significant past medical history who presents with abdominal pain diarrhea and nausea. This is been going on for last 3 days patient has been having loose stools and abdominal cramping. The abdominal cramps are 8 out of 10 nothing makes it better nothing makes worse. Patient states he has not vomited he does not know if he has had any sick contacts no fever the abdominal pain is located throughout his abdomen. - Related Data Home Medications Medication Instructions Recorded Confirmed Last Taken Aspirin 325 mg PO QDAY 08/20/13 06/14/16 02/26/14 Lisinopril [Zestril] 40 mg PO QDAY 08/20/13 06/14/16 02/26/14 Metoprolol [Lopressor TAB] 100 mg PO BID 08/20/13 06/14/16 02/26/14 Pravastatin [Pravachol] 40 mg PO QDAY 08/20/13 06/14/16 02/26/14 Previous Rx's Medication Instructions Recorded Last Taken Type Cyclobenzaprine HCl [Flexeril 5 MG 5 mg PO TID PRN #12 tab 12/15/16 Unknown Rx TAB] HYDROcodone/APAP 5-325 [[place] 1 - 2 each PO Q6HR PRN #20 tablet 04/01/18 Unknown Rx 5/325] Ketorolac [Toradol] 10 mg PO Q6H PRN #16 tablet 04/01/18 Unknown Rx Tamsulosin [Flomax] 0.4 mg PO QDAY #5 cap 04/01/18 Unknown Rx Acetaminophen [Tylenol Arthritis] 650 mg PO Q6HR PRN #30 tablet.er 08/02/18 Unknown Rx Ketorolac [Toradol] 10 mg PO Q6H PRN #20 tablet 08/02/18 Unknown Rx Ondansetron [Zofran ODT TAB] 4 mg PO Q8HR PRN #20 tab.rapdis 11/22/18 Unknown Rx Sulfamethoxazole/Trimethoprim 1 each PO BID 3 Days #6 tablet 11/22/18 Unknown Rx [Bactrim DS TAB] Tamsulosin [Flomax] 0.4 mg PO QDAY #30 cap 11/22/18 Unknown Rx traMADoL [Ultram 50 MG tab] 50 mg PO Q6HR PRN #12 tablet 11/22/18 Unknown Rx Ciprofloxacin HCl [Ciprofloxacin 500 mg PO Q12HR #14 tab 12/01/18 Unknown Rx TAB] HYDROcodone/APAP 5-325 [[place] 1 each PO Q6HR PRN #14 tablet 12/01/18 Unknown Rx 5/325] Phenazopyridine [Pyridium] 100 mg PO TID #6 tab 12/01/18 Unknown Rx Ibuprofen [Motrin 600 MG tab] 600 mg PO Q8H PRN #20 tablet 04/15/19 Unknown Rx traMADoL [Ultram 50 MG tab] 50 mg PO Q6HR PRN #20 tablet 04/15/19 Unknown Rx Acetaminophen [Tylenol] 650 mg PO Q4HR PRN #60 capsule 05/23/19 Unknown Rx Ibuprofen [Motrin] 600 mg PO Q8H PRN #30 tablet 05/23/19 Unknown Rx Methyl Salicylate/Menthol [[place] 60 gm TP Q6HR PRN #1 gel..gram. 05/23/19 Unknown Rx [place] Active 16%-8% Gel] Dicyclomine [Bentyl] 10 mg PO QID PRN #20 capsule 03/21/20 Unknown Rx Loperamide [Imodium] 2 mg PO Q2HR PRN #20 capsule 03/21/20 Unknown Rx Promethazine [Phenergan] 25 mg PO Q6HR PRN #20 tab 03/21/20 Unknown Rx Allergies Allergy/AdvReac Type Severity Reaction Status Date / Time No Known Allergies Allergy Verified 12/01/18 09:57 ED Review of Systems ROS: Stated complaint: WEAK/SICK AT STOMACH Other details as noted in HPI Constitutional: denies: chills, fever Eyes: denies: eye pain, eye discharge, vision change ENT: denies: ear pain, throat pain Respiratory: denies: cough, shortness of breath, wheezing Cardiovascular: denies: chest pain, palpitations Endocrine: no symptoms reported Gastrointestinal: abdominal pain, nausea, vomiting. denies: diarrhea Genitourinary: denies: urgency, dysuria Musculoskeletal: denies: back pain, joint swelling, arthralgia Skin: denies: rash, lesions Neurological: denies: headache, weakness, paresthesias Psychiatric: denies: anxiety, depression Hematological/Lymphatic: denies: easy bleeding, easy bruising ED Past Medical Hx - Past Medical History Previous Medical History?: Yes Hx Hypertension: Yes Hx GERD: Yes Hx Kidney Stones: Yes Hx Psychiatric Treatment: Yes (bipolar, depression) Additional medical history: gout. high cholesterol. 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 KIDNEY STONE - Surgical History Past Surgical History?: Yes Hx Coronary Stent: Yes (x1) Hx Pacemaker: No Hx Internal Defibrillator: No Additional Surgical History: angioplasty 2007 - Social History Smoking Status: Never Smoker - Medications Home Medications: Home Medications Medication Instructions Recorded Confirmed Last Taken Type Aspirin 325 mg PO QDAY 08/20/13 06/14/16 02/26/14 History Lisinopril [Zestril] 40 mg PO QDAY 08/20/13 06/14/16 02/26/14 History Metoprolol [Lopressor TAB] 100 mg PO BID 08/20/13 06/14/16 02/26/14 History Pravastatin [Pravachol] 40 mg PO QDAY 08/20/13 06/14/16 02/26/14 History Cyclobenzaprine HCl [Flexeril 5 MG 5 mg PO TID PRN #12 tab 12/15/16 Unknown Rx TAB] HYDROcodone/APAP 5-325 [[place] 1 - 2 each PO Q6HR PRN #20 tablet 04/01/18 Unknown Rx 5/325] Ketorolac [Toradol] 10 mg PO Q6H PRN #16 tablet 04/01/18 Unknown Rx Tamsulosin [Flomax] 0.4 mg PO QDAY #5 cap 04/01/18 Unknown Rx Acetaminophen [Tylenol Arthritis] 650 mg PO Q6HR PRN #30 tablet.er 08/02/18 Unknown Rx Ketorolac [Toradol] 10 mg PO Q6H PRN #20 tablet 08/02/18 Unknown Rx Ondansetron [Zofran ODT TAB] 4 mg PO Q8HR PRN #20 tab.rapdis 11/22/18 Unknown Rx Sulfamethoxazole/Trimethoprim 1 each PO BID 3 Days #6 tablet 11/22/18 Unknown Rx [Bactrim DS TAB] Tamsulosin [Flomax] 0.4 mg PO QDAY #30 cap 11/22/18 Unknown Rx traMADoL [Ultram 50 MG tab] 50 mg PO Q6HR PRN #12 tablet 11/22/18 Unknown Rx Ciprofloxacin HCl [Ciprofloxacin 500 mg PO Q12HR #14 tab 12/01/18 Unknown Rx TAB] HYDROcodone/APAP 5-325 [[place] 1 each PO Q6HR PRN #14 tablet 12/01/18 Unknown Rx 5/325] Phenazopyridine [Pyridium] 100 mg PO TID #6 tab 12/01/18 Unknown Rx Ibuprofen [Motrin 600 MG tab] 600 mg PO Q8H PRN #20 tablet 04/15/19 Unknown Rx traMADoL [Ultram 50 MG tab] 50 mg PO Q6HR PRN #20 tablet 04/15/19 Unknown Rx Acetaminophen [Tylenol] 650 mg PO Q4HR PRN #60 capsule 05/23/19 Unknown Rx Ibuprofen [Motrin] 600 mg PO Q8H PRN #30 tablet 05/23/19 Unknown Rx Methyl Salicylate/Menthol [[place] 60 gm TP Q6HR PRN #1 gel..gram. 05/23/19 Unknown Rx [place] Active 16%-8% Gel] Dicyclomine [Bentyl] 10 mg PO QID PRN #20 capsule 03/21/20 Unknown Rx Loperamide [Imodium] 2 mg PO Q2HR PRN #20 capsule 03/21/20 Unknown Rx Promethazine [Phenergan] 25 mg PO Q6HR PRN #20 tab 03/21/20 Unknown Rx ED Physical Exam - General Limitations: No Limitations General appearance: alert, in no apparent distress - Head Head exam: Present: atraumatic, normocephalic - Eye Eye exam: Present: normal appearance - ENT ENT exam: Present: mucous membranes moist - Neck Neck exam: Present: normal inspection - Respiratory Respiratory exam: Present: normal lung sounds bilaterally. Absent: respiratory distress - Cardiovascular Cardiovascular Exam: Present: regular rate, normal rhythm. Absent: systolic murmur, diastolic murmur, rubs, gallop - GI/Abdominal GI/Abdominal exam: Present: soft, normal bowel sounds - Rectal Rectal exam: Present: deferred - Extremities Exam Extremities exam: Present: normal inspection - Back Exam Back exam: Present: normal inspection - Neurological Exam Neurological exam: Present: alert, oriented X3 - Psychiatric Psychiatric exam: Present: normal affect, normal mood - Skin Skin exam: Present: warm, dry, intact, normal color. Absent: rash ED Course Vital Signs 03/21/20 18:08 Temperature 98 F Pulse Rate 77 Respiratory 16 Rate Blood Pressure 125/70 [Right] O2 Sat by Pulse 96 Oximetry ED Medical Decision Making - Lab Data Result diagrams: 03/21/20 17:59 03/21/20 17:59 Lab Results 03/21/20 03/21/20 Range/Units 17:59 17:59 WBC 9.7 (4.5-11.0) K/mm3 RBC 5.80 H (3.65-5.03) M/mm3 Hgb 16.2 H (11.8-15.2) gm/dl Hct 48.8 H (35.5-45.6) % MCV 84 (84-94) fl MCH 28 (28-32) pg MCHC 33 (32-34) % RDW 14.8 (13.2-15.2) % Plt Count 189 (140-440) K/mm3 Sodium 136 L (137-145) mmol/L Potassium 3.9 (3.6-5.0) mmol/L Chloride 100.7 (98-107) mmol/L Carbon Dioxide 20 L (22-30) mmol/L Anion Gap 19 mmol/L BUN 14 (9-20) mg/dL Creatinine 0.9 (0.8-1.3) mg/dL Estimated GFR > 60 ml/min BUN/Creatinine Ratio 16 % Glucose 82 (75-100) mg/dL Calcium 9.6 (8.4-10.2) mg/dL Total Bilirubin 0.40 (0.1-1.2) mg/dL AST 26 (5-40) units/L ALT 23 (7-56) units/L Alkaline Phosphatase 79 (35-129) units/L Total Protein 7.0 (6.3-8.2) g/dL Albumin 3.9 (3.9-5) g/dL Albumin/Globulin Ratio 1.3 % Lipase 54 (13-60) units/L - Medical Decision Making Chief medical diagnosis: Viral gastroenteritis Differential medical diagnosis: Dehydration, peptic ulcer disease I will get CBC BMP oral medication Bentyl and GI cocktail Patient is feeling better time is 21: 19 I will discharge patient home and patient can follow-up with her primary care provider.. Critical care attestation.: If time is entered above; I have spent that time in minutes in the direct care of this critically ill patient, excluding procedure time. ED Disposition Clinical Impression: Viral gastroenteritis, Nausea Diarrhea Qualifiers: Diarrhea type: unspecified type Qualified Code(s): R19.7 - Diarrhea, unspecified Disposition: TO HOME OR SELFCARE Is pt being admited?: No Does the pt Need Aspirin: No Condition: Stable Prescriptions: Dicyclomine [Bentyl] 10 mg PO QID PRN #20 capsule PRN Reason: Pain, Moderate (4-6) Loperamide [Imodium] 2 mg PO Q2HR PRN #20 capsule PRN Reason: Diarrhea Promethazine [Phenergan] 25 mg PO Q6HR PRN #20 tab PRN Reason: Nausea Referrals: TERESA MCKEON [Other] - 3-5 Days TERESA DASILVA MD [Staff Physician] - 3-5 Days
[2020-03-21 22:02] LABS: Basophils % (Manual) 0 % (0.0-1.8); Total Cells Counted 100
[2020-03-21 22:03] LABS: Ovalocytes Rare; Platelet Estimate Consistent w Auto
== END 2020-03-21 22:15 | disposition home or self-care (01) ==
LOC: ED 17:53
DX: A08.39 Other viral enteritis (principal); I10 Essential (primary) hypertension; K21.9 Gastro-esophageal reflux disease without esophagitis; M10.9 Gout, unspecified; F31.9 Bipolar disorder, unspecified; E78.00 Pure hypercholesterolemia, unspecified; Z95.818 Presence of other cardiac implants and grafts; Z79.899 Other long term (current) drug therapy
CPT/HCPCS: 36415; 80053; 83690; 85007; 85025; 99283; Q0169

== ENCOUNTER 2020-11-16 09:54 | Emergency (ER) | payer SELFPAY ==
[2020-11-16 10:22] VITALS: BP 113/66
== END 2020-11-16 13:39 | disposition left against medical advice (07) ==
LOC: ED 09:54
DX: B35.4 Tinea corporis (principal); D17.39 Benign lipomatous neoplasm of skin and subcutaneous tissue of other sites; Z53.21 Procedure and treatment not carried out due to patient leaving prior to being seen by health care provider

== ENCOUNTER 2020-11-22 09:33 | Emergency (ER) | payer SELFPAY ==
[2020-11-22 09:56] VITALS: BP 147/84
--- NOTE | 2020-11-22 11:30 | Emergency Department Report ---
ED General Adult HPI - General Chief complaint: Skin/Abscess/Foreign Body Stated complaint: ABSCESS ON LEFT SHOULDER Time Seen by Provider: 11/22/20 11:27 Source: patient Mode of arrival: Ambulatory Limitations: No Limitations - History of Present Illness Initial comments: 55-year-old male patient presents emergency department complaints of a painful lesion along his left upper back for 2 months. Patient was evaluated in the emergency department for this problem earlier in the week. He was diagnosed with lipoma and discharged home to follow-up with general surgery. Patient states the affected area has become more painful since his last evaluation. He is not currently on antibiotics. Denies fever, chills, purulent drainage, abnormal bleeding/bruising. Denies all other complaints at this time. - Related Data Home Medications Medication Instructions Recorded Confirmed Last Taken Aspirin 325 mg PO QDAY 08/20/13 06/14/16 02/26/14 Lisinopril [Zestril] 40 mg PO QDAY 08/20/13 06/14/16 02/26/14 Metoprolol [Lopressor TAB] 100 mg PO BID 08/20/13 06/14/16 02/26/14 Pravastatin [Pravachol] 40 mg PO QDAY 08/20/13 06/14/16 02/26/14 Previous Rx's Medication Instructions Recorded Last Taken Type Cyclobenzaprine HCl [Flexeril 5 MG 5 mg PO TID PRN #12 tab 12/15/16 Unknown Rx TAB] HYDROcodone/APAP 5-325 [[place] 1 - 2 each PO Q6HR PRN #20 tablet 04/01/18 Unknown Rx 5/325] Ketorolac [Toradol] 10 mg PO Q6H PRN #16 tablet 04/01/18 Unknown Rx Tamsulosin [Flomax] 0.4 mg PO QDAY #5 cap 04/01/18 Unknown Rx Acetaminophen [Tylenol Arthritis] 650 mg PO Q6HR PRN #30 tablet.er 08/02/18 Unknown Rx Ketorolac [Toradol] 10 mg PO Q6H PRN #20 tablet 08/02/18 Unknown Rx Ondansetron [Zofran ODT TAB] 4 mg PO Q8HR PRN #20 tab.rapdis 11/22/18 Unknown Rx Sulfamethoxazole/Trimethoprim 1 each PO BID 3 Days #6 tablet 11/22/18 Unknown Rx [Bactrim DS TAB] Tamsulosin [Flomax] 0.4 mg PO QDAY #30 cap 11/22/18 Unknown Rx traMADoL [Ultram 50 MG tab] 50 mg PO Q6HR PRN #12 tablet 11/22/18 Unknown Rx Ciprofloxacin HCl [Ciprofloxacin 500 mg PO Q12HR #14 tab 12/01/18 Unknown Rx TAB] HYDROcodone/APAP 5-325 [[place] 1 each PO Q6HR PRN #14 tablet 12/01/18 Unknown Rx 5/325] Phenazopyridine [Pyridium] 100 mg PO TID #6 tab 12/01/18 Unknown Rx Ibuprofen [Motrin 600 MG tab] 600 mg PO Q8H PRN #20 tablet 04/15/19 Unknown Rx traMADoL [Ultram 50 MG tab] 50 mg PO Q6HR PRN #20 tablet 04/15/19 Unknown Rx Acetaminophen [Tylenol] 650 mg PO Q4HR PRN #60 capsule 05/23/19 Unknown Rx Ibuprofen [Motrin] 600 mg PO Q8H PRN #30 tablet 05/23/19 Unknown Rx Methyl Salicylate/Menthol [[place] 60 gm TP Q6HR PRN #1 gel..gram. 05/23/19 Unknown Rx [place] Active 16%-8% Gel] Dicyclomine [Bentyl] 10 mg PO QID PRN #20 capsule 03/21/20 Unknown Rx Loperamide [Imodium] 2 mg PO Q2HR PRN #20 capsule 03/21/20 Unknown Rx Promethazine [Phenergan] 25 mg PO Q6HR PRN #20 tab 03/21/20 Unknown Rx Naproxen [Naprosyn] 500 mg PO BID #20 tablet 11/22/20 Unknown Rx Allergies Allergy/AdvReac Type Severity Reaction Status Date / Time No Known Allergies Allergy Verified 12/01/18 09:57 ED Review of Systems ROS: Stated complaint: ABSCESS ON LEFT SHOULDER Other details as noted in HPI Other: GENERAL: Negative for fever. CARDIOVASCULAR: Negative for chest pain. PULMONARY: Negative for shortness of breath. GASTROINTESTINAL: Negative for abdominal pain. MUSCULOSKELETAL: Negative for back pain. NEUROLOGICAL: Negative for headache. INTEGUMENTARY: Positive for painful lesion. ED Past Medical Hx - Past Medical History Previous Medical History?: Yes Hx Hypertension: Yes Hx GERD: Yes Hx Kidney Stones: Yes Hx Psychiatric Treatment: Yes (bipolar, depression) Additional medical history: gout. high cholesterol. 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 KIDNEY STONE - Surgical History Past Surgical History?: Yes Hx Coronary Stent: Yes (x1) Hx Pacemaker: No Hx Internal Defibrillator: No Additional Surgical History: angioplasty 2007 - Social History Smoking Status: Never Smoker - Medications Home Medications: Home Medications Medication Instructions Recorded Confirmed Last Taken Type Aspirin 325 mg PO QDAY 08/20/13 06/14/16 02/26/14 History Lisinopril [Zestril] 40 mg PO QDAY 08/20/13 06/14/16 02/26/14 History Metoprolol [Lopressor TAB] 100 mg PO BID 08/20/13 06/14/16 02/26/14 History Pravastatin [Pravachol] 40 mg PO QDAY 08/20/13 06/14/16 02/26/14 History Cyclobenzaprine HCl [Flexeril 5 MG 5 mg PO TID PRN #12 tab 12/15/16 Unknown Rx TAB] HYDROcodone/APAP 5-325 [[place] 1 - 2 each PO Q6HR PRN #20 tablet 04/01/18 Unkno wn Rx 5/325] Ketorolac [Toradol] 10 mg PO Q6H PRN #16 tablet 04/01/18 Unknown Rx Tamsulosin [Flomax] 0.4 mg PO QDAY #5 cap 04/01/18 Unknown Rx Acetaminophen [Tylenol Arthritis] 650 mg PO Q6HR PRN #30 tablet.er 08/02/18 Unknown Rx Ketorolac [Toradol] 10 mg PO Q6H PRN #20 tablet 08/02/18 Unknown Rx Ondansetron [Zofran ODT TAB] 4 mg PO Q8HR PRN #20 tab.rapdis 11/22/18 Unknown Rx Sulfamethoxazole/Trimethoprim 1 each PO BID 3 Days #6 tablet 11/22/18 Unknown Rx [Bactrim DS TAB] Tamsulosin [Flomax] 0.4 mg PO QDAY #30 cap 11/22/18 Unknown Rx traMADoL [Ultram 50 MG tab] 50 mg PO Q6HR PRN #12 tablet 11/22/18 Unknown Rx Ciprofloxacin HCl [Ciprofloxacin 500 mg PO Q12HR #14 tab 12/01/18 Unknown Rx TAB] HYDROcodone/APAP 5-325 [[place] 1 each PO Q6HR PRN #14 tablet 12/01/18 Unknown Rx 5/325] Phenazopyridine [Pyridium] 100 mg PO TID #6 tab 12/01/18 Unknown Rx Ibuprofen [Motrin 600 MG tab] 600 mg PO Q8H PRN #20 tablet 04/15/19 Unknown Rx traMADoL [Ultram 50 MG tab] 50 mg PO Q6HR PRN #20 tablet 04/15/19 Unknown Rx Acetaminophen [Tylenol] 650 mg PO Q4HR PRN #60 capsule 05/23/19 Unknown Rx Ibuprofen [Motrin] 600 mg PO Q8H PRN #30 tablet 05/23/19 Unknown Rx Methyl Salicylate/Menthol [[place] 60 gm TP Q6HR PRN #1 gel..gram. 05/23/19 Unknown Rx [place] Active 16%-8% Gel] Dicyclomine [Bentyl] 10 mg PO QID PRN #20 capsule 03/21/20 Unknown Rx Loperamide [Imodium] 2 mg PO Q2HR PRN #20 capsule 03/21/20 Unknown Rx Promethazine [Phenergan] 25 mg PO Q6HR PRN #20 tab 03/21/20 Unknown Rx Naproxen [Naprosyn] 500 mg PO BID #20 tablet 11/22/20 Unknown Rx ED Physical Exam - General Limitations: No Limitations - Other Other exam information: General: Awake, appropriately interactive, no acute distress. Neck: Supple. Full range of motion intact. Cardiovascular: Normal peripheral perfusion. Pulmonary: No respiratory distress. Patient is speaking normally without use of accessory muscles. Skin: Golf ball sized fluctuant area of swelling noted to the left upper back with minimal tenderness. No overlying warmth or erythema. Neurological: No facial asymmetry. Speech is clear. Follows commands. Patient is alert and oriented. Musculoskeletal: Moves all four extremities spontaneously with normal range of motion. Psych: Cooperative. Appropriate mood and affect. ED Course Vital Signs 11/22/20 11/22/20 09:37 09:54 Temperature 98.7 F 98.4 F Pulse Rate 75 74 Respiratory 20 18 Rate Blood Pressure 103/65 Blood Pressure 147/84 [Right] O2 Sat by Pulse 95 99 Oximetry - Procedure Description Procedures done: Verbal consent was obtained from the patient. The area was prepped and draped in sterile fashion. The area was cleansed with Betadine. Approximately 3 cc of local anesthetic (Lidocaine 1%) was administered. An 18- gauge needle was used to aspirate the lesion. No purulent drainage present. Bandage placed. Patient tolerated procedure well without complications. Estimated blood loss < 1 mL. ED Medical Decision Making - Medical Decision Making Differential diagnosis including but not limited to: abscess, lipoma, sebaceous cyst, malignancy Patient presents emergency department for reevaluation of a skin lesion on his back. He was previously diagnosed with a lipoma. Patient has returned to the emergency department for further evaluation since the pain has reportedly increased. Needle aspiration was performed; no purulent drainage to suggest concomitant infection. See procedure note for details. Patient was previously referred to general surgery for further evaluation and definitive management of this ongoing problem. Emphasized the importance of calling the surgeon today to schedule a follow-up appointment. He was also provided with multiple primary care referrals and prescription for appropriate analgesics. Patient expressed understanding and is agreeable to plan of care. Strict return precautions provided. Repeat exam is unremarkable and benign. History, exam, diagnostic testing, and current condition do not suggest worrisome pathology to warrant further testing, continued ED treatment, admission, or surgical evaluation at this point. Given the low probability of a significant medical illness, it would be more likely to result in harm than benefit to perform further testing at this stage. Discussed findings, presumptive diagnosis, need for follow-up and specific signs/symptoms that should prompt immediate return to the emergency department. Instructions were explained in detail to the patient in addition to giving written discharge information. Patient expressed understanding and was given the opportunity to ask questions, all of which were satisfactorily answered prior to discharge home . Critical care attestation.: If time is entered above; I have spent that time in minutes in the direct care of this critically ill patient, excluding procedure time. ED Disposition Clinical Impression: Lipoma Qualifiers: Lipoma location: trunk Qualified Code(s): D17.1 - Benign lipomatous neoplasm of skin and subcutaneous tissue of trunk Disposition: DC-01 TO HOME OR SELFCARE Is pt being admited?: No Does the pt Need Aspirin: No Condition: Stable Instructions: Lipoma Removal Additional Instructions: Take Tylenol every 4 hours as needed for pain. Take Naprosyn twice daily with food as needed for pain. You must follow-up with general surgery for definitive management of this ongoing problem. Call today to schedule an appointment. If you are unable to follow-up with general surgery, please contact one of the following primary care providers to help coordinate care. Return to the emergency department immediately for new or worsening symptoms. Prescriptions: Naproxen [Naprosyn] 500 mg PO BID #20 tablet Referrals: JEAN-PIERRE GUTHRIE DO [Staff Physician] - 3-5 Days TOMMY TUCKER MD [Staff Physician] - 3-5 Days [facility] [Provider Group] - 3-5 Days Time of Disposition: 11:52
== END 2020-11-22 12:19 | disposition home or self-care (01) ==
LOC: ED 09:33
DX: D17.1 Benign lipomatous neoplasm of skin and subcutaneous tissue of trunk (principal); M54.6 Pain in thoracic spine; I10 Essential (primary) hypertension; K21.9 Gastro-esophageal reflux disease without esophagitis; F31.9 Bipolar disorder, unspecified; Z87.442 Personal history of urinary calculi; E78.00 Pure hypercholesterolemia, unspecified; Z98.890 Other specified postprocedural states; Z79.899 Other long term (current) drug therapy
CPT/HCPCS: 99281

== ENCOUNTER 2020-11-26 17:45 | Emergency (ER) | payer SELFPAY ==
[2020-11-26 18:05] VITALS: BP 139/79
[2020-11-26] MEDS ORDERED: LIDOCAINE 1%/EPINEPHRINE 1:100,000 VIAL (20 ML) INFILTRATI ONE (18:06)
--- NOTE | 2020-11-26 18:07 | Emergency Department Report ---
Abscess Boil HPI - HPI Chief Complaint: Skin/Abscess/Foreign Body Stated Complaint: ABSCESS ON BACK Time Seen by Provider: 11/26/20 18:06 Duration: >1 Week (since around 11/16) Location: Back History: Yes Pain, Yes Purulent Drainage, Yes Previous History, No Fever, No Numbness, No Foreign Body, No Insect Bite HPI: Pt presents to ED with c/o tender swollen draining area to left upper back area. Patient states he started with tender swollen area to back a few days prior to 11/16/20. He states he came here on 11/16 and 11/18 for his symptoms but he was told that it was lipoma. He states area has been getting worse and this morning started draining. He reports hx of abscess in past with I&D. He denies any known hx of MRSA, DM or other immunocompromise illness. Home Medications: Home Medications Medication Instructions Recorded Confirmed Last Taken Aspirin 325 mg PO QDAY 08/20/13 06/14/16 02/26/14 Lisinopril [Zestril] 40 mg PO QDAY 08/20/13 06/14/16 02/26/14 Metoprolol [Lopressor TAB] 100 mg PO BID 08/20/13 06/14/16 02/26/14 Pravastatin [Pravachol] 40 mg PO QDAY 08/20/13 06/14/16 02/26/14 Previous Rx's Medication Instructions Recorded Last Taken Type Cyclobenzaprine HCl [Flexeril 5 MG 5 mg PO TID PRN #12 tab 12/15/16 Unknown Rx TAB] HYDROcodone/APAP 5-325 [[place] 1 - 2 each PO Q6HR PRN #20 tablet 04/01/18 Unknown Rx 5/325] Ketorolac [Toradol] 10 mg PO Q6H PRN #16 tablet 04/01/18 Unknown Rx Tamsulosin [Flomax] 0.4 mg PO QDAY #5 cap 04/01/18 Unknown Rx Acetaminophen [Tylenol Arthritis] 650 mg PO Q6HR PRN #30 tablet.er 08/02/18 Unknown Rx Ketorolac [Toradol] 10 mg PO Q6H PRN #20 tablet 08/02/18 Unknown Rx Ondansetron [Zofran ODT TAB] 4 mg PO Q8HR PRN #20 tab.rapdis 11/22/18 Unknown Rx Tamsulosin [Flomax] 0.4 mg PO QDAY #30 cap 11/22/18 Unknown Rx traMADoL [Ultram 50 MG tab] 50 mg PO Q6HR PRN #12 tablet 11/22/18 Unknown Rx Ciprofloxacin HCl [Ciprofloxacin 500 mg PO Q12HR #14 tab 12/01/18 Unknown Rx TAB] Phenazopyridine [Pyridium] 100 mg PO TID #6 tab 12/01/18 Unknown Rx Ibuprofen [Motrin 600 MG tab] 600 mg PO Q8H PRN #20 tablet 04/15/19 Unknown Rx traMADoL [Ultram 50 MG tab] 50 mg PO Q6HR PRN #20 tablet 04/15/19 Unknown Rx Acetaminophen [Tylenol] 650 mg PO Q4HR PRN #60 capsule 05/23/19 Unknown Rx Ibuprofen [Motrin] 600 mg PO Q8H PRN #30 tablet 05/23/19 Unknown Rx Methyl Salicylate/Menthol [[place] 60 gm TP Q6HR PRN #1 gel..gram. 05/23/19 Unknown Rx [place] Active 16%-8% Gel] Dicyclomine [Bentyl] 10 mg PO QID PRN #20 capsule 03/21/20 Unknown Rx Loperamide [Imodium] 2 mg PO Q2HR PRN #20 capsule 03/21/20 Unknown Rx Promethazine [Phenergan] 25 mg PO Q6HR PRN #20 tab 03/21/20 Unknown Rx Naproxen [Naprosyn] 500 mg PO BID #20 tablet 11/22/20 Unknown Rx HYDROcodone/APAP 5-325 [[place] 1 each PO Q6HR PRN #12 tablet 11/26/20 Unknown Rx 5-325 mg TAB] Sulfamethoxazole/Trimethoprim 1 each PO BID 7 Days #14 tablet 11/26/20 Unknown Rx [Bactrim DS TAB] Allergies/Adverse Reactions: Allergies Allergy/AdvReac Type Severity Reaction Status Date / Time No Known Allergies Allergy Verified 12/01/18 09:57 ED Review of Systems ROS: Stated complaint: ABSCESS ON BACK Other details as noted in HPI Comment: All other systems reviewed and negative Constitutional: denies: chills, diaphoresis, fever, malaise, weakness Eyes: denies: eye pain, eye discharge, vision change ENT: denies: ear pain, throat pain, dental pain, hearing loss, epistaxis, congestion Cardiovascular: denies: chest pain, palpitations, orthopnea, edema, syncope, paroxysmal nocturnal dyspnea Gastrointestinal: denies: abdominal pain, nausea, diarrhea, constipation, hematemesis, hematochezia Genitourinary: denies: urgency, dysuria, frequency, hematuria, discharge, testicular pain, testicular mass Musculoskeletal: denies: back pain, joint swelling, arthralgia Skin: as per HPI, other (Abscess right upper back ). denies: rash, lesions, change in color, change in hair/nails, pruritus Neurological: denies: headache, weakness, numbness, paresthesias, confusion Psychiatric: denies: anxiety, depression, auditory hallucinations, visual hallucinations, homicidal thoughts, suicidal thoughts Hematological/Lymphatic: denies: easy bleeding, easy bruising, swollen glands ED Past Medical Hx - Past Medical History Previous Medical History?: Yes Hx Hypertension: Yes Hx GERD: Yes Hx Kidney Stones: Yes Hx Psychiatric Treatment: Yes (bipolar, depression) Additional medical history: gout. high cholesterol. 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 KIDNEY STONE - Surgical History Past Surgical History?: Yes Hx Coronary Stent: Yes (x1) Hx Pacemaker: No Hx Internal Defibrillator: No Additional Surgical History: angioplasty 2007 - Social History Smoking Status: Never Smoker Substance Use Type: None - Medications Home Medications: Home Medications Medication Instructions Recorded Confirmed Last Taken Type Aspirin 325 mg PO QDAY 08/20/13 06/14/16 02/26/14 History Lisinopril [Zestril] 40 mg PO QDAY 08/20/13 06/14/16 02/26/14 History Metoprolol [Lopressor TAB] 100 mg PO BID 08/20/13 06/14/16 02/26/14 History Pravastatin [Pravachol] 40 mg PO QDAY 08/20/13 06/14/16 02/26/14 History Cyclobenzaprine HCl [Flexeril 5 MG 5 mg PO TID PRN #12 tab 12/15/16 Unknown Rx TAB] HYDROcodone/APAP 5-325 [[place] 1 - 2 each PO Q6HR PRN #20 tablet 04/01/18 Unknown Rx 5/325] Ketorolac [Toradol] 10 mg PO Q6H PRN #16 tablet 04/01/18 Unknown Rx Tamsulosin [Flomax] 0.4 mg PO QDAY #5 cap 04/01/18 Unknown Rx Acetaminophen [Tylenol Arthritis] 650 mg PO Q6HR PRN #30 tablet.er 08/02/18 Unknown Rx Ketorolac [Toradol] 10 mg PO Q6H PRN #20 tablet 08/02/18 Unknown Rx Ondansetron [Zofran ODT TAB] 4 mg PO Q8HR PRN #20 tab.rapdis 11/22/18 Unknown Rx Tamsulosin [Flomax] 0.4 mg PO QDAY #30 cap 11/22/18 Unknown Rx traMADoL [Ultram 50 MG tab] 50 mg PO Q6HR PRN #12 tablet 11/22/18 Unknown Rx Ciprofloxacin HCl [Ciprofloxacin 500 mg PO Q12HR #14 tab 12/01/18 Unknown Rx TAB] Phenazopyridine [Pyridium] 100 mg PO TID #6 tab 12/01/18 Unknown Rx Ibuprofen [Motrin 600 MG tab] 600 mg PO Q8H PRN #20 tablet 04/15/19 Unknown Rx traMADoL [Ultram 50 MG tab] 50 mg PO Q6HR PRN #20 tablet 04/15/19 Unknown Rx Acetaminophen [Tylenol] 650 mg PO Q4HR PRN #60 capsule 05/23/19 Unknown Rx Ibuprofen [Motrin] 600 mg PO Q8H PRN #30 tablet 05/23/19 Unknown Rx Methyl Salicylate/Menthol [[place] 60 gm TP Q6HR PRN #1 gel..gram. 05/23/19 Unknown Rx [place] Active 16%-8% Gel] Dicyclomine [Bentyl] 10 mg PO QID PRN #20 capsule 03/21/20 Unknown Rx Loperamide [Imodium] 2 mg PO Q2HR PRN #20 capsule 03/21/20 Unknown Rx Promethazine [Phenergan] 25 mg PO Q6HR PRN #20 tab 03/21/20 Unknown Rx Naproxen [Naprosyn] 500 mg PO BID #20 tablet 11/22/20 Unknown Rx HYDROcodone/APAP 5-325 [[place] 1 each PO Q6HR PRN #12 tablet 11/26/20 Unknown Rx 5-325 mg TAB] Sulfamethoxazole/Trimethoprim 1 each PO BID 7 Days #14 tablet 11/26/20 Unknown Rx [Bactrim DS TAB] ED Abscess Boil Physical Exam - Exam General: Vital signs noted. No distress. Alert and acting appropriately. Size: >5 cm (7cm x 7cm left upper back) Exam: Yes Tenderness, Yes Fluctuance, Yes Surrounding Cellulites/Erythema (mild ), Yes Normal Neurologic Exam, No Lymphangitis, No Crepitation, No Heart Murmur, No Normal Circulation I & D Note - I & D Note I & D Note: Location - Left upper back. Anesthesia used: Lidocaine with epi (about 5cc infiltrated). I&D Kit use -- 11inch blade to make incision. Large amount of pus drained. loculations broken up using forceps. Wound irrigated with saline. Wound pack with 1 inch gauze. Dressing applied. Patient tolerated procedure well without complications ED Course Vital Signs 11/26/20 18:03 Temperature 98.2 F Pulse Rate 92 H Respiratory 20 Rate Blood Pressure 139/79 O2 Sat by Pulse 99 Oximetry Critical care attestation.: If time is entered above; I have spent that time in minutes in the direct care of this critically ill patient, excluding procedure time. ED Disposition Clinical Impression: Abscess of back Disposition: DC-01 TO HOME OR SELFCARE Is pt being admited?: No Does the pt Need Aspirin: No Condition: Stable Instructions: Skin Abscess, [id number], Incision and Drainage Additional Instructions: Take the antibiotics as prescribed. Continue Naproxen as prescribed before to help with pain, you can also take the norco for additional pain control. You can remove packing completely in 2 days. Keep wound clean daily with soap and water, dry well and cover. Do this daily until wound heals. Follow up with PCP listed on discharge instructions. Return to ED if worse. Prescriptions: Sulfamethoxazole/Trimethoprim [Bactrim DS TAB] 1 each PO BID 7 Days #14 tablet HYDROcodone/APAP 5-325 [[place] 5-325 mg TAB] 1 each PO Q6HR PRN #12 tablet PRN Reason: Pain Referrals: TOMMY TUCKER MD [Staff Physician] - 3-5 Days Time of Disposition: 19:21
== END 2020-11-26 23:00 | disposition home or self-care (01) ==
LOC: ED 17:45
DX: L02.212 Cutaneous abscess of back [any part, except buttock and flank] (principal); F31.9 Bipolar disorder, unspecified; K21.9 Gastro-esophageal reflux disease without esophagitis; E78.00 Pure hypercholesterolemia, unspecified; I10 Essential (primary) hypertension; Z79.899 Other long term (current) drug therapy; Z98.890 Other specified postprocedural states

== ENCOUNTER 2021-08-23 08:10 | Inpatient (IN) | payer SELFPAY ==
--- NOTE | 2021-08-23 08:47 | Emergency Department Report ---
ED General Adult HPI - General Chief complaint: Chest Pain Stated complaint: CHEST PAIN PUI?: No Time Seen by Provider: 08/23/21 08:44 Source: patient, RN notes reviewed, old records reviewed Mode of arrival: Ambulatory Limitations: No Limitations - History of Present Illness Initial comments: The patient was evaluated in the emergency department for symptoms described in the history of present illness. He/she was evaluated in the context of the global COVID-19 pandemic, which necessitated consideration that the patient mnady ht be at risk for infection with the virus that causes COVID-19. Institutional protocols and algorithms that pertain to the evaluation of patients at risk for COVID-19 are in a state of rapid change based on information released by regulatory bodies including the CDC and federal and state organizations. These policies and algorithms were followed during the patient's care in the emergency department. Please note that these policies, procedures and recommendations changed on a rapid basis. Cardiology: [facility] cardiology; Dr. Alfonso Past medical history: Body mass index 95.9, hypertension, high cholesterol. Patient reports being COVID-19 vaccinated Patient may also have history of paroxysmal A. fib or flutter. The patient is a 56-year-old gentleman, who presents to the ER today with a complaint of central left-sided chest tightness, associated with heart racing. He denies headache, neck pain, abdominal pain, vomiting, diaphoresis, DVT/PE risk factors. He was found to be in a flutter with RVR, and this terminated spontaneously. He reports that he feels like he is back to his baseline at this time. He does not have a known history of sleep apnea that he is aware of. He reports that he sleeps sitting straight up. -: Sudden Location: chest Severity scale (0 -10): 7 Consistency: now resolved Improves with: none Worsens with: none Associated Symptoms: denies other symptoms - Related Data Home Medications Medication Instructions Recorded Confirmed Last Taken Aspirin 325 mg PO QDAY 08/20/13 06/14/16 02/26/14 Lisinopril [Zestril] 40 mg PO QDAY 08/20/13 06/14/16 02/26/14 Metoprolol [Lopressor TAB] 100 mg PO BID 08/20/13 06/14/16 02/26/14 Pravastatin [Pravachol] 40 mg PO QDAY 08/20/13 06/14/16 02/26/14 Previous Rx's Medication Instructions Recorded Last Taken Type Cyclobenzaprine HCl [Flexeril 5 MG 5 mg PO TID PRN #12 tab 12/15/16 Unknown Rx TAB] HYDROcodone/APAP 5-325 [[place] 1 - 2 each PO Q6HR PRN #20 tablet 04/01/18 Unknown Rx 5/325] Ketorolac [Toradol] 10 mg PO Q6H PRN #16 tablet 04/01/18 Unknown Rx Tamsulosin [Flomax] 0.4 mg PO QDAY #5 cap 04/01/18 Unknown Rx Acetaminophen [Tylenol Arthritis] 650 mg PO Q6HR PRN #30 tablet.er 08/02/18 Unknown Rx Ketorolac [Toradol] 10 mg PO Q6H PRN #20 tablet 08/02/18 Unknown Rx Ondansetron [Zofran ODT TAB] 4 mg PO Q8HR PRN #20 tab.rapdis 11/22/18 Unknown Rx Tamsulosin [Flomax] 0.4 mg PO QDAY #30 cap 11/22/18 Unknown Rx traMADoL [Ultram 50 MG tab] 50 mg PO Q6HR PRN #12 tablet 11/22/18 Unknown Rx Ciprofloxacin HCl [Ciprofloxacin 500 mg PO Q12HR #14 tab 12/01/18 Unknown Rx TAB] Phenazopyridine [Pyridium] 100 mg PO TID #6 tab 12/01/18 Unknown Rx Ibuprofen [Motrin 600 MG tab] 600 mg PO Q8H PRN #20 tablet 04/15/19 Unknown Rx traMADoL [Ultram 50 MG tab] 50 mg PO Q6HR PRN #20 tablet 04/15/19 Unknown Rx Acetaminophen [Tylenol] 650 mg PO Q4HR PRN #60 capsule 05/23/19 Unknown Rx Ibuprofen [Motrin] 600 mg PO Q8H PRN #30 tablet 05/23/19 Unknown Rx Methyl Salicylate/Menthol [[place] 60 gm TP Q6HR PRN #1 gel..gram. 05/23/19 Unknown Rx [place] Active 16%-8% Gel] Dicyclomine [Bentyl] 10 mg PO QID PRN #20 capsule 03/21/20 Unknown Rx Loperamide [Imodium] 2 mg PO Q2HR PRN #20 capsule 03/21/20 Unknown Rx Promethazine [Phenergan] 25 mg PO Q6HR PRN #20 tab 03/21/20 Unknown Rx Naproxen [Naprosyn] 500 mg PO BID #20 tablet 11/22/20 Unknown Rx HYDROcodone/APAP 5-325 [[place] 1 each PO Q6HR PRN #12 tablet 11/26/20 Unknown Rx 5-325 mg TAB] Sulfamethoxazole/Trimethoprim 1 each PO BID 7 Days #14 tablet 11/26/20 Unknown Rx [Bactrim DS TAB] Allergies Allergy/AdvReac Type Severity Reaction Status Date / Time No Known Allergies Allergy Verified 12/01/18 09:57 ED Review of Systems ROS: Stated complaint: CHEST PAIN Other details as noted in HPI Constitutional: denies: fever Eyes: denies: eye discharge ENT: denies: epistaxis Respiratory: shortness of breath Cardiovascular: chest pain, palpitations, orthopnea Gastrointestinal: denies: nausea, vomiting, melena Genitourinary: denies: dysuria Musculoskeletal: denies: myalgia Neurological: denies: weakness Hematological/Lymphatic: denies: easy bleeding ED Past Medical Hx - Past Medical History Hx Hypertension: Yes Hx GERD: Yes Hx Kidney Stones: Yes Hx Psychiatric Treatment: Yes (bipolar, depression) Additional medical history: gout. high cholesterol. 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 KIDNEY STONE - Surgical History Hx Coronary Stent: Yes (x1) Hx Pacemaker: No Hx Internal Defibrillator: No Additional Surgical History: angioplasty 2008 - Social History Smoking Status: Never Smoker Substance Use Type: None - Medications Home Medications: Home Medications Medication Instructions Recorded Confirmed Last Taken Type Aspirin 325 mg PO QDAY 08/20/13 06/14/16 02/26/14 History Lisinopril [Zestril] 40 mg PO QDAY 08/20/13 06/14/16 02/26/14 History Metoprolol [Lopressor TAB] 100 mg PO BID 08/20/13 06/14/16 02/26/14 History Pravastatin [Pravachol] 40 mg PO QDAY 08/20/13 06/14/16 02/26/14 History Cyclobenzaprine HCl [Flexeril 5 MG 5 mg PO TID PRN #12 tab 12/15/16 Unknown Rx TAB] HYDROcodone/APAP 5-325 [[place] 1 - 2 each PO Q6HR PRN #20 tablet 04/01/18 Unknown Rx 5/325] Ketorolac [Toradol] 10 mg PO Q6H PRN #16 tablet 04/01/18 Unknown Rx Tamsulosin [Flomax] 0.4 mg PO QDAY #5 cap 04/01/18 Unknown Rx Acetaminophen [Tylenol Arthritis] 650 mg PO Q6HR PRN #30 tablet.er 08/02/18 Unknown Rx Ketorolac [Toradol] 10 mg PO Q6H PRN #20 tablet 08/02/18 Unknown Rx Ondansetron [Zofran ODT TAB] 4 mg PO Q8HR PRN #20 tab.rapdis 11/22/18 Unknown Rx Tamsulosin [Flomax] 0.4 mg PO QDAY #30 cap 11/22/18 Unknown Rx traMADoL [Ultram 50 MG tab] 50 mg PO Q6HR PRN #12 tablet 11/22/18 Unknown Rx Ciprofloxacin HCl [Ciprofloxacin 500 mg PO Q12HR #14 tab 12/01/18 Unknown Rx TAB] Phenazopyridine [Pyridium] 100 mg PO TID #6 tab 12/01/18 Unknown Rx Ibuprofen [Motrin 600 MG tab] 600 mg PO Q8H PRN #20 tablet 04/15/19 Unknown Rx traMADoL [Ultram 50 MG tab] 50 mg PO Q6HR PRN #20 tablet 04/15/19 Unknown Rx Acetaminophen [Tylenol] 650 mg PO Q4HR PRN #60 capsule 05/23/19 Unknown Rx Ibuprofen [Motrin] 600 mg PO Q8H PRN #30 tablet 05/23/19 Unknown Rx Methyl Salicylate/Menthol [[place] 60 gm TP Q6HR PRN #1 gel..gram. 05/23/19 Unknown Rx [place] Active 16%-8% Gel] Dicyclomine [Bentyl] 10 mg PO QID PRN #20 capsule 03/21/20 Unknown Rx Loperamide [Imodium] 2 mg PO Q2HR PRN #20 capsule 03/21/20 Unknown Rx Promethazine [Phenergan] 25 mg PO Q6HR PRN #20 tab 03/21/20 Unknown Rx Naproxen [Naprosyn] 500 mg PO BID #20 tablet 11/22/20 Unknown Rx HYDROcodone/APAP 5-325 [[place] 1 each PO Q6HR PRN #12 tablet 11/26/20 Unknown Rx 5-325 mg TAB] Sulfamethoxazole/Trimethoprim 1 each PO BID 7 Days #14 tablet 11/26/20 Unknown Rx [Bactrim DS TAB] ED Physical Exam - General Limitations: No Limitations General appearance: obese - Head Head exam: Present: atraumatic, normocephalic - Eye Eye exam: Present: normal appearance, EOMI. Absent: nystagmus - ENT ENT exam: Present: normal exam, normal orophraynx, mucous membranes moist, normal external ear exam - Neck Neck exam: Present: normal inspection, full ROM. Absent: tenderness, meningismus - Respiratory Respiratory exam: Present: normal lung sounds bilaterally. Absent: respiratory distress, wheezes, rales, rhonchi, stridor, decreased breath sounds - Cardiovascular Cardiovascular Exam: Present: regular rate, normal rhythm, normal heart sounds. Absent: bradycardia, tachycardia, irregular rhythm, systolic murmur, diastolic murmur, rubs, gallop - GI/Abdominal GI/Abdominal exam: Present: soft. Absent: distended, tenderness, guarding, rebound, rigid, pulsatile mass - Rectal Rectal exam: Present: deferred - Extremities Exam Extremities exam: Present: normal inspection, full ROM, pedal edema (1+ edema in the bilateral lower extremities), other (2+ pulses noted in the bilateral upper and lower extremities. There is no palpable cord. negative Homans sign. Muscular compartments are soft. The pelvis is stable.). Absent: calf tenderness - Back Exam Back exam: Present: normal inspection, full ROM. Absent: tenderness, CVA tenderness (R), CVA tenderness (L), paraspinal tenderness, vertebral tenderness - Neurological Exam Neurological exam: Present: alert, oriented X3, other (No facial droop. Tongue midline. Extraocular movements intact bilaterally. Facial sensation intact to light touch in V1, V2, V3 distribution bilaterally. 5 and a 5 strength in 4 extremities. Sensation intact to light touch in 4 extremities.). Absent: motor sensory deficit - Psychiatric Psychiatric exam: Present: anxious - Skin Skin exam: Present: warm, dry, intact, normal color. Absent: rash ED Course Vital Signs 08/23/21 08/23/21 08/23/21 08:35 08:52 09:20 Temperature 98.3 F Pulse Rate 140 H 76 Respiratory 18 19 Rate Blood Pressure Blood Pressure 117/75 138/92 [Right] O2 Sat by Pulse 97 99 96 Oximetry 08/23/21 09:21 Temperature Pulse Rate 67 Respiratory Rate Blood Pressure 138/92 Blood Pressure [Right] O2 Sat by Pulse Oximetry - Reevaluation(s) Reevaluation #1: 08/23/21 09:31 Differential diagnosis, including but not limited to: A. fib with RVR, a flutter with RVR, thyroid derangement, electrolyte derangement, acute coronary syndrome Assessment and plan: 56-year-old gentleman, with resolved tachycardia, who is not currently tachycardic, tachypneic or hypoxic, who denies DVT and pulmonary embolism risk factors, who is low risk by Wells criteria for pulmonary embolism, who denies contraindications to systemic anticoagulation, likely presenting with paroxysmal a flutter with RVR. I suspect this patient has undiagnosed and untreated obstructive sleep apnea. He is not hypoxic or encephalopathic at this time. He is currently in normal sinus rhythm. X-ray of the chest is unremarkable. Moderate risk for major adverse cardiac event as per heart score. Appropriate laboratory studies ordered. Have reached out to [facility] cardiology, Carleen Espinoza, have requested cardiology consultation. We will treat this patient with aspirin, nitroglycerin, and metoprolol. He will be admitted to the medical service once his initial diagnostic studies have resulted. I discussed this with the patient. He is agreeable to this plan of care. 08/23/21 10:18 Patient remains comfortable and in normal sinus rhythm. Cardiology, Sharad Espinoza currently interviewing the patient. Cardiology team will make recommendations as to anticoagulation strategy after discussion with their attending. They further advised that the patient will not receive a stress test today/this afternoon, so that he is okay to eat. Hospital physician, Dr. Shen to admit patient to the medical service. Laboratory studies reviewed and appreciated. Chest x-ray unremarkable. Laboratory studies unremarkable. Patient updated with the plan of care. He is agreeable to the plan of care ED Medical Decision Making - Lab Data Result diagrams: 08/23/21 08:58 08/23/21 08:58 Vital Signs 08/23/21 08/23/21 08/23/21 08:35 08:52 09:20 Temperature 98.3 F Pulse Rate 140 H 76 Respiratory 18 19 Rate Blood Pressure Blood Pressure 117/75 138/92 [Right] O2 Sat by Pulse 97 99 96 Oximetry 08/23/21 09:21 Temperature Pulse Rate 67 Respiratory Rate Blood Pressure 138/92 Blood Pressure [Right] O2 Sat by Pulse Oximetry Lab Results 08/23/21 Range/Units 08:58 [place] % (Auto) 7.5 H (0.0-7.3) % Eos % (Auto) 2.8 (0.0-4.3) % [place] # (Auto) 0.5 (0.0-0.8) K/mm3 Eos # (Auto) 0.2 (0.0-0.4) K/mm3 Baso # (Auto) 0.0 (0.0-0.1) K/mm3 Seg Neutrophils % 65.3 (40.0-70.0) % Seg Neutrophils # 4.5 (1.8-7.7) K/mm3 Vital Signs 08/23/21 08/23/21 08/23/21 08:35 08:52 09:20 Temperature 98.3 F Pulse Rate 140 H 76 Respiratory 18 19 Rate Blood Pressure Blood Pressure 117/75 138/92 [Right] O2 Sat by Pulse 97 99 96 Oximetry 08/23/21 09:21 Temperature Pulse Rate 67 Respiratory Rate Blood Pressure 138/92 Blood Pressure [Right] O2 Sat by Pulse Oximetry - EKG Data -: EKG Interpreted by Ar Rate: tachycardia - EKG Data 08/23/21 09:29 EKG #1 is interpreted at 08: 27 Atrial flutter, rate 147 bpm. QTc 5 7 2 ms. Abnormal EKG. Motion artifact. Not a STEMI. EKG #2 is interpreted at 09: 01 Sinus rhythm, rate 69 bpm. Normal axis, normal P wave axis, normal intervals, motion artifact. Not a STEMI. EKG #2 shows lateral T wave abnormalities, and appears to be unchanged from prior EKG from 04/2019 - Radiology Data Radiology results: pending, report reviewed, image reviewed CHEST 1 VIEW INDICATION: Dysrhythmia. COMPARISON: 04/14/2019 FINDINGS: Support devices: None. Heart: Borderline to mild cardiomegaly. Lungs/Pleura: The lungs are generally clear with no evidence for pneumonia, pleural effusion or pneumothorax. Additional findings: None. IMPRESSION: Borderline heart size. Lungs clear. Signer Name: Tommie Deras Jr, MD Signed: 08/23/2021 8:06 AM Workstation Name: [id number] Critical care attestation.: If time is entered above; I have spent that time in minutes in the direct care of this critically ill patient, excluding procedure time. ED Disposition Clinical Impression: Acute chest pain, Atrial flutter with rapid ventricular response, Morbid obesity with BMI of 70 and over, adult Disposition: ADMITTED INPATIENT Is pt being admited?: Yes Does the pt Need Aspirin: No Condition: Stable Instructions: Chest Pain (ED) Referrals: ABBE ALFONSO MD [Primary Care Provider] - 3-5 Days Heart Score - HEART Score History: Slightly suspicious EKG: Non-specific Age: 45-65 Risk factors: > 3 risk factors or hx of atherosclerotic disease Troponin: < normal limit HEART Score: 4 - EKG Read Time Time EKG Completed: 09:01 EKG Read Time: 09:01 - Critical Actions Critical Actions: 4-6 pts:12-16.6% risk of adverse cardiac event. Should be admitted
[2021-08-23] MEDS ORDERED: NITROGLYCERIN 0.4 MG TAB SUBL SL PRN (08:57)
[2021-08-23] MEDS ORDERED: METOPROLOL TARTRATE 50 MG TAB PO ONE (08:57)
[2021-08-23] MEDS ORDERED: ASPIRIN 81 MG TAB CHEW PO ONE (08:57)
--- NOTE | 2021-08-23 09:10 | XRay Report ---
CHEST 1 VIEW INDICATION: Dysrhythmia. COMPARISON: 04/14/2019 FINDINGS: Support devices: None. Heart: Borderline to mild cardiomegaly. Lungs/Pleura: The lungs are generally clear with no evidence for pneumonia, pleural effusion or pneum othorax. Additional findings: None. IMPRESSION: Borderline heart size. Lungs clear. Signer Name: Tommie Deras Jr, MD Signed: 08/23/2021 9:06 AM Workstation Name: [id number]
[2021-08-23 09:18] LABS: Basophils % (Auto) 0.3 % (0.0-1.8); Eosinophils # (Auto) 0.2 K/mm3 (0.0-0.4); Eosinophils % (Auto) 2.8 % (0.0-4.3); Hematocrit 51.4 % (35.5-45.6); Hemoglobin 16.7 gm/dl (11.8-15.2); Lymphocytes # (Auto) 1.7 K/mm3 (1.2-5.4); Lymphocytes % (Auto) 24.1 % (13.4-35.0); Mean Corpuscular HGB Conc 33 % (32-34); Mean Corpuscular Volume 86 fl (84-94); Monocytes # (Auto) 0.5 K/mm3 (0.0-0.8); Monocytes % (Auto) 7.5 % (0.0-7.3); Platelet Count 175 K/mm3 (140-440); Red Blood Count 6.01 M/mm3 (3.65-5.03); Red Cell Distribution Width 14.6 % (13.2-15.2)
[2021-08-23 09:30] LABS: INR 0.85 (0.87-1.13)
[2021-08-23 09:43] LABS: Alanine Aminotransferase 26 units/L (7-56); Albumin 4.1 g/dL (3.9-5); BUN/Creatinine Ratio 12; Blood Urea Nitrogen 12 mg/dL (9-20); Calcium 9.2 mg/dL (8.4-10.2); Hemolysis Index 13
--- NOTE | 2021-08-23 11:22 | History and Physical Report ---
History of Present Illness Chief complaint: My heart felt like it was racing History of present illness: 56 YO Male with Obesity Hypoventilation Syndrome, SMO, HTN, HLD, CAD S/P Stent placement presents to ED for evaluation. Patient reported "my heart felt like it was racing". Patient states that he experienced sudden onset chest discomfort as well as rapid heartbeat that began 2 days ago and has persisted during the same timeframe. Patient states "I felt like I was having "heart attack". Patient transported to [facility] via private vehicle for further care and evaluation of the aforementioned symptoms. The patient was seen and evaluated in the emergency department. All lab and imaging studies reviewed. Patient found to have atrial flutter with rapid ventricular response as well as suspected diastolic CHF. Cardiology team consulted. Patient mated to telemetry and initiated on ACS protocol. Patient denies fever, chills, productive cough, skin rash, recent contact, known exposure to COVID-19. No prior admission for review. All medication listed at time of admission has been reconciled. Advanced care planning conducted in ED. Patient is fully vaccinated against COVID-19. Past History Past Medical History: hypertension, other (See HPI) Past Surgical History: Other (Stent placement) Social history: . denies: smoking, alcohol abuse, prescription drug abuse Family history: diabetes, hypertension Medications and Allergies Allergies Allergy/AdvReac Type Severity Reaction Status Date / Time No Known Allergies Allergy Verified 12/01/18 09:57 Home Medications Medication Instructions Recorded Confirmed Last Taken Type Aspirin 325 mg PO QDAY 08/20/13 08/23/21 08/23/21 08:00 History Lisinopril [Zestril] 40 mg PO QDAY 08/20/13 08/23/21 08/23/21 08:00 History Metoprolol [Lopressor TAB] 100 mg PO BID 08/20/13 08/23/21 08/23/21 08:00 History Pravastatin [Pravachol] 40 mg PO QDAY 08/20/13 08/23/21 08/22/21 20:00 History Cyclobenzaprine HCl [Flexeril 5 MG 5 mg PO TID PRN #12 tab 12/15/16 08/23/21 Unknown Rx TAB] HYDROcodone/APAP 5-325 [[place] 1 - 2 each PO Q6HR PRN #20 tablet 04/01/18 08/23/21 Unknown Rx 5/325] Ketorolac [Toradol] 10 mg PO Q6H PRN #16 tablet 04/01/18 08/23/21 Unknown Rx Tamsulosin [Flomax] 0.4 mg PO QDAY #5 cap 04/01/18 08/23/21 Unknown Rx Acetaminophen [Tylenol Arthritis] 650 mg PO Q6HR PRN #30 tablet.er 08/02/18 08/23/21 Unknown Rx Ketorolac [Toradol] 10 mg PO Q6H PRN #20 tablet 08/02/18 08/23/21 Unknown Rx Ondansetron [Zofran ODT TAB] 4 mg PO Q8HR PRN #20 tab.rapdis 11/22/18 08/23/21 Unknown Rx traMADoL [Ultram 50 MG tab] 50 mg PO Q6HR PRN #12 tablet 11/22/18 08/23/21 Unknown Rx Ciprofloxacin HCl [Ciprofloxacin 500 mg PO Q12HR #14 tab 12/01/18 08/23/21 Unknown Rx TAB] Phenazopyridine [Pyridium] 100 mg PO TID #6 tab 12/01/18 08/23/21 Unknown Rx Ibuprofen [Motrin 600 MG tab] 600 mg PO Q8H PRN #20 tablet 04/15/19 08/23/21 Unknown Rx traMADoL [Ultram 50 MG tab] 50 mg PO Q6HR PRN #20 tablet 04/15/19 08/23/21 Unknown Rx Acetaminophen [Tylenol] 650 mg PO Q4HR PRN #60 capsule 05/23/19 08/23/21 Unknown Rx Ibuprofen [Motrin] 600 mg PO Q8H PRN #30 tablet 05/23/19 08/23/21 Unknown Rx Methyl Salicylate/Menthol [[place] 60 gm TP Q6HR PRN #1 gel..gram. 05/23/19 08/23/21 Unknown Rx [employer] Active 16%-8% Gel] Dicyclomine [Bentyl] 10 mg PO QID PRN #20 capsule 03/21/20 08/23/21 Unknown Rx Loperamide [Imodium] 2 mg PO Q2HR PRN #20 capsule 03/21/20 08/23/21 Unknown Rx Promethazine [Phenergan] 25 mg PO Q6HR PRN #20 tab 03/21/20 08/23/21 Unknown Rx Naproxen [Naprosyn] 500 mg PO BID #20 tablet 11/22/20 08/23/21 Unknown Rx HYDROcodone/APAP 5-325 [[place] 1 each PO Q6HR PRN #12 tablet 11/26/20 08/23/21 Unknown Rx 5-325 mg TAB] Sulfamethoxazole/Trimethoprim 1 each PO BID 7 Days #14 tablet 11/26/20 08/23/21 Unknown Rx [Bactrim DS TAB] hydrALAZINE 50 mg PO BID 08/23/21 08/23/21 08/22/21 20:00 History Active Meds: Active Medications Nitroglycerin (Nitroglycerin 0.4 Mg Tab Subl) 0.4 mg SL .Q5MIN PRN PRN Reason: Chest Pain Review of Systems Constitutional: no weight loss, no weight gain, no fever, no chills Ears, nose, mouth and throat: no ear pain, no ear discharge, no decreased hearing, no nose pain, no nasal discharge Cardiovascular: palpitations, rapid/irregular heart beat, no edema, no syncope, no shortness of breath Respiratory: no cough, no cough with sputum, no excessive sputum, no hemoptysis Gastrointestinal: no nausea, no vomiting, no diarrhea, no constipation Genitourinary Male: no hematuria, no flank pain, no discharge, no urinary frequency, no urinary hesitancy Rectal: no pain, no incontinence, no bleeding Musculoskeletal: no neck stiffness, no neck pain, no shooting arm pain, no arm numbness/tingling, no low back pain, no leg numbness/tingling Integumentary: no rash, no pruritis, no sores, no jaundice, no boils Neurological: no head injury, no paralysis, no numbness, no seizures, no tremors Psychiatric: no anxiety, no change in sleep habits, no sleep disturbances, no change in appetite, no change in libido Endocrine: no cold intolerance, no polyphagia, no polydipsia, no polyuria, no nocturia Hematologic/Lymphatic: no easy bruising, no easy bleeding Allergic/Immunologic: no urticaria, no allergic rhinitis Exam - Constitutional Vitals: Temp Pulse Resp BP Pulse Ox 98.3 F 60 18 124/79 93 08/23/21 08:35 08/23/21 10:21 08/23/21 10:21 08/23/21 10:21 08/23/21 10:21 General appearance: Present: mild distress, obese - EENT Eyes: Present: PERRL ENT: hearing intact, clear oral mucosa - Neck Neck: Present: supple, normal ROM - Respiratory Respiratory effort: normal Respiratory: bilateral: diminished - Cardiovascular Rhythm: irregularly irregular Heart Sounds: Present: S1 & S2. Absent: rub, click - Extremities Extremities: pulses symmetrical, No edema Peripheral Pulses: within normal limits - Abdominal General gastrointestinal: Present: soft, non-tender, non-distended, normal bowel sounds Male genitourinary: Present: normal - Integumentary Integumentary: Present: clear, warm, dry - Musculoskeletal Musculoskeletal: gait normal, strength equal bilaterally - Psychiatric Psychiatric: appropriate mood/affect, intact judgment & insight - Neurologic Neurologic: CNII-XII intact, moves all extremities HEART Score - HEART Score EKG: Non-specific Age: 45-65 Risk factors: > 3 risk factors or hx of atherosclerotic disease Troponin: Troponin T < 0.010 ng/mL (0.00-0.029) 08/23/21 08:58 Troponin: < normal limit - Critical Actions Critical Actions: 4-6 pts:12-16.6% risk of adverse cardiac event. Should be admitted Results - Labs CBC & Chem 7: 08/23/21 08:58 08/23/21 08:58 Labs: Abnormal lab results 08/23/21 08/23/21 08/23/21 Range/Units 08:58 08:58 08:58 RBC 6.01 H (3.65-5.03) M/mm3 Hgb 16.7 H (11.8-15.2) gm/dl Hct 51.4 H (35.5-45.6) % [place] % (Auto) 7.5 H (0.0-7.3) % INR 0.85 L (0.87-1.13) Glucose 107 H (75-100) mg/dL Assessment and Plan - Patient Problems (1) Atrial flutter with rapid ventricular response Current Visit: Yes Status: Acute Plan to address problem: Cardiology team consulted. Continue medical management. Further care and evaluation as per cardiology team. (2) Diastolic CHF Current Visit: Yes Status: Acute Qualifiers: Heart failure chronicity: acute Qualified Code(s): I50.31 - Acute diastolic (congestive) heart failure Plan to address problem: Supportive care. Further care and evaluation as per cardiology team. Stress test pending in a.m. as per cardiology team. (3) Obesity hypoventilation syndrome Current Visit: Yes Status: Acute Plan to address problem: Balanced diet, increase physical activity discharge, outpatient pulmonary follow-up for sleep study, outpatient bariatric surgery evaluation. (4) Morbid obesity with BMI of 70 and over, adult Current Visit: Yes Status: Acute Plan to address problem: Balanced diet, outpatient bariatric surgery evaluation. (5) Hypertension Current Visit: Yes Status: Acute Qualifiers: Hypertension type: primary hypertension Qualified Code(s): I10 - Essential (primary) hypertension Plan to address problem: Monitor blood pressure every shift, continue medical management (6) Hyperlipidemia Current Visit: Yes Status: Acute Qualifiers: Hyperlipidemia type: mixed hyperlipidemia Qualified Code(s): E78.2 - Mixed hyperlipidemia Plan to address problem: Low-cholesterol diet, supportive care (7) DVT prophylaxis Current Visit: Yes Status: Acute Plan to address problem: Prophylactic anticoagulation, SCD to bilateral lower extremities while in bed (8) Advance care planning Current Visit: Yes Status: Acute Plan to address problem: Disease education conducted, care plan discussed, diagnoses discussed, prognosis discussed, patient is full code. Patient acknowledges understanding and agreement with care plan, +30 minutes.
[2021-08-23] MEDS ORDERED: ACETAMINOPHEN 325 MG TAB PO PRN (11:23)
[2021-08-23] MEDS ORDERED: oxyCODONE /ACETAMINOPHEN 5-325MG TAB PO PRN (11:23)
[2021-08-23] MEDS ORDERED: ALBUTEROL 2.5 MG/3 ML NEBU IH PRN (11:23)
[2021-08-23] MEDS ORDERED: HYDROmorphone 1 MG/1 ML INJ IV PRN (11:23)
[2021-08-23] MEDS ORDERED: ONDANSETRON 4 MG/2 ML INJ IV PRN (11:23)
[2021-08-23] MEDS ORDERED: NON-FORMULARY EACH (Cyclobenzaprine Hcl [Flexeril 5 Mg Tab] 5 MG Tablet) PO PRN (11:27)
[2021-08-23] MEDS ORDERED: DICYCLOMINE 10 MG CAP PO PRN (11:27)
[2021-08-23] MEDS ORDERED: KETOROLAC 10 MG TAB PO PRN (11:27)
[2021-08-23] MEDS ORDERED: CYCLOBENZAPRINE 10 MG TAB PO PRN (11:43)
--- NOTE | 2021-08-23 13:14 | Consultation ---
History of Present Illness Consult date: 08/23/21 Requesting physician: JULEE LOPEZ Consult reason: chest pain, other (Atrial flutter with RVR) History of present illness: Patient is a 56-year-old male with a past medical history of hypertension, sleep apnea, obesity, bipolar disorder, ADHD who presents to the ED today with a complaint of chest tightness which started this morning. Patient reports over the last couple weeks he has felt fatigue and has intermittent sharp chest pain however, when patient woke up this morning he states that it with chest tightness that he has never felt before and decided to come to the hospital. He associated the chest tightness with shortness of breath. On arrival to the ED patient was found to be in a flutter with RVR which she converted to normal sinus rhythm without any intervention. Patient reports that once being back in his normal rhythm he no longer felt any symptoms. Patient has no history of A. fib or a flutter. At time of interview patient denies current chest pain, shortness of breath, nausea, vomiting, diaphoresis, or lightheadedness. Patient is followed by Dr. ALIX Robbins of our practice. Cardiology is consulted for chest pain/atrial flutter with RVR. Past History Past Medical History: other (See HPI) Past Surgical History: No surgical history Social history: denies: smoking, alcohol abuse Family history: CAD Medications and Allergies Allergies Allergy/AdvReac Type Severity Reaction Status Date / Time No Known Allergies Allergy Verified 12/01/18 09:57 Home Medications Medication Instructions Recorded Confirmed Last Taken Type Aspirin 325 mg PO QDAY 08/20/13 06/14/16 02/26/14 History Lisinopril [Zestril] 40 mg PO QDAY 08/20/13 06/14/16 02/26/14 History Metoprolol [Lopressor TAB] 100 mg PO BID 08/20/13 06/14/16 02/26/14 History Pravastatin [Pravachol] 40 mg PO QDAY 08/20/13 06/14/16 02/26/14 History Cyclobenzaprine HCl [Flexeril 5 MG 5 mg PO TID PRN #12 tab 12/15/16 Unknown Rx TAB] HYDROcodone/APAP 5-325 [[place] 1 - 2 each PO Q6HR PRN #20 tablet 04/01/18 Unknown Rx 5/325] Ketorolac [Toradol] 10 mg PO Q6H PRN #16 tablet 04/01/18 Unknown Rx Tamsulosin [Flomax] 0.4 mg PO QDAY #5 cap 04/01/18 Unknown Rx Acetaminophen [Tylenol Arthritis] 650 mg PO Q6HR PRN #30 tablet.er 08/02/18 Unknown Rx Ketorolac [Toradol] 10 mg PO Q6H PRN #20 tablet 08/02/18 Unknown Rx Ondansetron [Zofran ODT TAB] 4 mg PO Q8HR PRN #20 tab.rapdis 11/22/18 Unknown Rx Tamsulosin [Flomax] 0.4 mg PO QDAY #30 cap 11/22/18 Unknown Rx traMADoL [Ultram 50 MG tab] 50 mg PO Q6HR PRN #12 tablet 11/22/18 Unknown Rx Ciprofloxacin HCl [Ciprofloxacin 500 mg PO Q12HR #14 tab 12/01/18 Unknown Rx TAB] Phenazopyridine [Pyridium] 100 mg PO TID #6 tab 12/01/18 Unknown Rx Ibuprofen [Motrin 600 MG tab] 600 mg PO Q8H PRN #20 tablet 04/15/19 Unknown Rx traMADoL [Ultram 50 MG tab] 50 mg PO Q6HR PRN #20 tablet 04/15/19 Unknown Rx Acetaminophen [Tylenol] 650 mg PO Q4HR PRN #60 capsule 05/23/19 Unknown Rx Ibuprofen [Motrin] 600 mg PO Q8H PRN #30 tablet 05/23/19 Unknown Rx Methyl Salicylate/Menthol [[place] 60 gm TP Q6HR PRN #1 gel..gram. 05/23/19 Unknown Rx [place] Active 16%-8% Gel] Dicyclomine [Bentyl] 10 mg PO QID PRN #20 capsule 03/21/20 Unknown Rx Loperamide [Imodium] 2 mg PO Q2HR PRN #20 capsule 03/21/20 Unknown Rx Promethazine [Phenergan] 25 mg PO Q6HR PRN #20 tab 03/21/20 Unknown Rx Naproxen [Naprosyn] 500 mg PO BID #20 tablet 11/22/20 Unknown Rx HYDROcodone/APAP 5-325 [[place] 1 each PO Q6HR PRN #12 tablet 11/26/20 Unknown Rx 5-325 mg TAB] Sulfamethoxazole/Trimethoprim 1 each PO BID 7 Days #14 tablet 11/26/20 Unknown Rx [Bactrim DS TAB] Active Meds: Active Medications Acetaminophen (Acetaminophen 325 Mg Tab) 650 mg PO Q4H PRN PRN Reason: Pain MILD(1-3)/Fever >100.5/BUTLER Albuterol (Albuterol 2.5 Mg/3 Ml Nebu) 2.5 mg IH Q4HRT PRN PRN Reason: Shortness Of Breath Aspirin (Aspirin 325 Mg Tab) 325 mg PO QDAY [facility] Cyclobenzaprine HCl (Cyclobenzaprine 10 Mg Tab) 5 mg PO TID PRN PRN Reason: Muscle Spasm Dicyclomine HCl (Dicyclomine 10 Mg Cap) 10 mg PO QID PRN PRN Reason: Pain, Moderate (4-6) Hydromorphone HCl (Hydromorphone 1 Mg/1 Ml Inj) 0.5 mg IV Q23H PRN PRN Reason: Pain , Severe (7-10) Ketorolac Tromethamine (Ketorolac 10 Mg Tab) 10 mg PO Q6H PRN PRN Reason: PAIN Stop: 08/28/21 11:26 Lisinopril (Lisinopril 40 Mg Tab) 40 mg PO QDAY [facility] Metoprolol Tartrate (Metoprolol Tartrate 100 Mg Tab) 100 mg PO TID [facility] Nitroglycerin (Nitroglycerin 0.4 Mg Tab Subl) 0.4 mg SL .Q5MIN PRN PRN Reason: Chest Pain Ondansetron HCl (Ondansetron 4 Mg/2 Ml Inj) 4 mg IV Q8H PRN PRN Reason: Nausea And Vomiting Oxycodone/Acetaminophen (Oxycodone /Acetaminophen 5-325mg Tab) 1 tab PO Q16H PRN PRN Reason: Pain, Moderate (4-6) Pravastatin Sodium (Pravastatin 40 Mg Tab) 40 mg PO QHS [facility] Sodium Chloride (Sodium Chloride 0.9% 10 Ml Flush Syringe) 10 ml IV BID [facility] Sodium Chloride (Sodium Chloride 0.9% 10 Ml Flush Syringe) 10 ml IV PRN PRN PRN Reason: LINE FLUSH Tamsulosin HCl (Tamsulosin 0.4 Mg Cap) 0.4 mg PO QDAY [facility] Review of Systems Constitutional: fatigue, no weight loss, no weight gain, no fever, no chills Ears, nose, mouth and throat: no nasal congestion, no nasal discharge, no sinus pressure Cardiovascular: chest pain, palpitations, shortness of breath Respiratory: shortness of breath, no cough, no cough with sputum, no excessive sputum Gastrointestinal: no abdominal pain, no nausea, no vomiting Musculoskeletal: no neck stiffness, no neck pain, no shooting arm pain Integumentary: no rash, no pruritis, no redness Neurological: no head injury, no transient paralysis Psychiatric: no anxiety, no memory loss Endocrine: no cold intolerance, no heat intolerance Hematologic/Lymphatic: no easy bruising, no easy bleeding Physical Examination Vital Signs Temp Pulse Resp BP Pulse Ox 98.3 F 140 H 18 117/75 97 08/23/21 08:35 08/23/21 08:35 08/23/21 08:35 08/23/21 08:35 08/23/21 08:35 General appearance: no acute distress HEENT: Positive: PERRL Neck: Positive: trachea midline Cardiac: Positive: Reg Rate and Rhythm Lungs: Positive: Normal Breath Sounds Neuro: Positive: Grossly Intact Abdomen: Positive: Soft Skin: Negative: Rash, Suspicious Lesions, Ulceration Extremities: Present: upper extr. pulses. Absent: edema Results 08/23/21 08:58 08/23/21 08:58 Cardiac Enzymes 08/23/21 Range/Units 08:58 AST 27 (5-40) units/L Coagulation 08/23/21 Range/Units 08:58 PT 12.6 (12.2-14.9) Sec. INR 0.85 L (0.87-1.13) CBC 08/23/21 Range/Units 08:58 WBC 6.9 (4.5-11.0) K/mm3 RBC 6.01 H (3.65-5.03) M/mm3 Hgb 16.7 H (11.8-15.2) gm/dl Hct 51.4 H (35.5-45.6) % Plt Count 175 (140-440) K/mm3 Lymph # (Auto) 1.7 (1.2-5.4) K/mm3 [place] # (Auto) 0.5 (0.0-0.8) K/mm3 Eos # (Auto) 0.2 (0.0-0.4) K/mm3 Baso # (Auto) 0.0 (0.0-0.1) K/mm3 Comprehensive Metabolic Panel 08/23/21 Range/Units 08:58 Sodium 137 (137-145) mmol/L Potassium 4.6 (3.6-5.0) mmol/L Chloride 101.0 (98-107) mmol/L Carbon Dioxide 23 (22-30) mmol/L BUN 12 (9-20) mg/dL Creatinine 1.0 (0.8-1.3) mg/dL Glucose 107 H (75-100) mg/dL Calcium 9.2 (8.4-10.2) mg/dL AST 27 (5-40) units/L ALT 26 (7-56) units/L Alkaline Phosphatase 72 (35-129) units/L Total Protein 7.2 (6.3-8.2) g/dL Albumin 4.1 (3.9-5) g/dL - Imaging and Cardiology Echo: pending, report reviewed EKG interpretations - Telemetry EKG Rhythm: Sinus Rhythm - EKG Sinus rhythms and dysrhythmias: sinus rhythm Assessment and Plan Patient is a 56-year-old male with a past medical history of hypertension, sleep apnea, obesity, bipolar disorder, ADHD who presents to the ED today with a complaint of chest tightness which started this morning Atrial flutter with RVR Hypertension Bipolar disorder Sleep apnea Obesity ADHD Echocardiogram 04/05/2020 There is normal LV systolic function. The estimated LV ejection fraction is normal at 55-60%. There is normal right ventricular size, wall dimension, and systolic function. LA chamber size is normal. There is a trileaflet aortic valve. There is no aortic valve stenosis or regurgitation. The aortic valve is mildly calcified. The mitral valve is structurally normal. There is trace mitral regurgitation. Tricuspid valve is structurally normal. There is mild tricuspid regurgitation. The size of the visualized portion of aortic root is within normal limits. The ascending aorta is mildly dilated. There is no pericardial effusion present Outpatient medications: metoprolol 100 mg p.o. twice daily, aspirin 325 mg p.o. daily, hydralazine 50 mg p.o. 3 times daily, lisinopril 40 mg p.o. daily, simvastatin 20 mg p.o. nightly Plan: Initial EKG shows atrial flutter with RVR rate 147. No acute ischemic changes. Troponins negative times 1 repeat cardiac enzymes pending. Patient currently chest pain-free Repeat EKG shows sinus rhythm 69 with no acute ischemic changes Echo pending Increase metoprolol to 100 mg p.o. 3 times daily due to new onset atrial flutter, Agree with resuming lisinopril and simvastatin Patient for stress test in the a.m. N.p.o. after midnight. Patient has a chads vas score of 1 will hold anticoagulation due to low [id number] VASc score and transient episode of atrial flutter Patient seen in conjunction with Dr. Roberto who agrees with this plan of care - Patient Problems (1) RANI (obstructive sleep apnea) Current Visit: Yes Status: Acute (2) Atrial flutter with rapid ventricular response Current Visit: Yes Status: Acute (3) Morbid obesity with BMI of 70 and over, adult Current Visit: Yes Status: Acute (4) Chest pain Current Visit: No Status: Acute Qualifiers: Chest pain type: unspecified Qualified Code(s): R07.9 - Chest pain, unspecified (5) Hypertension Current Visit: No Status: Chronic Qualifiers: Hypertension type: unspecified Qualified Code(s): I10 - Essential (primary) hypertension
[2021-08-23] MEDS: METOPROLOL TARTRATE 100 MG TAB PO SCH ×2 (17:29→21:14)
[2021-08-23] MEDS: HEPARIN 5,000 UNIT/1 ML VIAL SUB-Q SCH (21:14)
[2021-08-23] MEDS ORDERED: METOPROLOL TARTRATE 100 MG TAB PO SCH (22:00)
[2021-08-23] MEDS ORDERED: PRAVASTATIN 40 MG TAB PO SCH (22:00)
[2021-08-24] MEDS ORDERED: REGADENOSON 0.4 MG/5 ML INJ IV ONE (06:39)
[2021-08-24 06:49] LABS: BUN/Creatinine Ratio 16; Blood Urea Nitrogen 14 mg/dL (9-20); Calcium 9.7 mg/dL (8.4-10.2); Hemolysis Index 4
[2021-08-24] MEDS ORDERED: PRAVASTATIN 40 MG TAB PO SCH (10:00)
[2021-08-24] MEDS ORDERED: TAMSULOSIN 0.4 MG CAP PO SCH (10:00)
[2021-08-24] MEDS ORDERED: ASPIRIN 325 MG TAB PO SCH (10:00)
[2021-08-24] MEDS ORDERED: LISINOPRIL 40 MG TAB PO SCH (10:00)
--- NOTE | 2021-08-24 10:04 | Progress Note ---
Assessment and Plan Patient is a 56-year-old male with a past medical history of hypertension, sleep apnea, obesity, bipolar disorder, ADHD who presents to the ED today with a complaint of chest tightness which started this morning Atrial flutter with RVR Hypertension Bipolar disorder Sleep apnea Obesity ADHD Echocardiogram 04/05/2020 There is normal LV systolic function. The estimated LV ejection fraction is normal at 55-60%. There is normal right ventricular size, wall dimension, and systolic function. LA chamber size is normal. There is a trileaflet aortic valve. There is no aortic valve stenosis or regurgitation. The aortic valve is mildly calcified. The mitral valve is structurally normal. There is trace mitral regurgitation. Tricuspid valve is structurally normal. There is mild tricuspid regurgitation. The size of the visualized portion of aortic root is within normal limits. The ascending aorta is mildly dilated. There is no pericardial effusion present Outpatient medications: metoprolol 100 mg p.o. twice daily, aspirin 325 mg p.o. daily, hydralazine 50 mg p.o. 3 times daily, lisinopril 40 mg p.o. daily, simvastatin 20 mg p.o. nightly Lexiscan MPI stress test 08/24/2021-negative for signs of ischemia Plan: Initial EKG shows atrial flutter with RVR rate 147. No acute ischemic changes. Troponins negativex2. Patient currently chest pain-free. AMI ruled out Repeat EKG shows sinus rhythm 69 with no acute ischemic changes Continue metoprolol to 100 mg p.o. 3 times daily due to new onset atrial flutter, Continue lisinopril and simvastatin Upon discharge patient should stop taking hydralazine due to blood pressure being controlled with increasing metoprolol to 3 times a day Patient has a chads vas score of 1 will hold anticoagulation due to low [id number] VASc score and transient episode of atrial flutter Patient has had no further episodes of atrial flutter and atrial flutter with less than 12 hours. Due to low [id number] score and transient episode of atrial flutter anticoagulation not indicated Patient patient had negative stress test today with no complaints of chest pain and no episodes of atrial flutter Cardiac status otherwise stable Patient should follow-up with Dr. ALIX Robbins, [facility] market research specialist, on 09/07/2021 at 1:15p in our [facility] location. Phone #[phone] Patient seen in conjunction with Dr. Roberto who agrees with this plan of care - Patient Problems (1) RANI (obstructive sleep apnea) Current Visit: Yes Status: Acute (2) Atrial flutter with rapid ventricular response Current Visit: Yes Status: Acute (3) Morbid obesity with BMI of 70 and over, adult Current Visit: Yes Status: Acute (4) Chest pain Current Visit: No Status: Acute Qualifiers: Chest pain type: unspecified Qualified Code(s): R07.9 - Chest pain, unspecified (5) Hypertension Current Visit: No Status: Chronic Qualifiers: Hypertension type: unspecified Qualified Code(s): I10 - Essential (primary) hypertension Subjective Date of service: 08/24/21 Principal diagnosis: Aflutter Interval history: Patient for stress test this a.m. Patient remains sinus on monitor with no events Objective Vital Signs Temp Pulse Pulse Resp BP BP Pulse Ox 08/24/21 09:43 60 18 96 08/24/21 09:19 127/79 08/24/21 09:18 129/81 08/24/21 09:17 146/88 08/24/21 09:00 60 08/24/21 08:23 127/76 08/24/21 04:28 98.3 F 62 16 142/59 92 08/24/21 00:00 94 08/23/21 23:48 97.3 F L 56 L 16 130/74 94 08/23/21 22:00 94 08/23/21 20:09 66 08/23/21 19:15 99.2 F 68 16 113/63 93 08/23/21 17:37 72 18 98 08/23/21 17:32 98 F 72 18 92 08/23/21 17:18 72 08/23/21 17:00 121/65 08/23/21 14:35 97.6 F 69 11 L 117/76 93 08/23/21 11:34 69 18 123/76 94 08/23/21 10:21 60 18 124/79 93 - Physical Examination General: No Apparent Distress HEENT: Positive: PERRL Neck: Positive: trachea midline Cardiac: Positive: Reg Rate and Rhythm Lungs: Positive: Normal Breath Sounds Neuro: Positive: Grossly Intact Abdomen: Positive: Soft Skin: Negative: Rash, Suspicious Lesions, Ulceration Extremities: Present: upper extr. pulses. Absent: edema - Labs and Meds CBC 08/23/21 Range/Units 08:58 WBC 6.9 (4.5-11.0) K/mm3 RBC 6.01 H (3.65-5.03) M/mm3 Hgb 16.7 H (11.8-15.2) gm/dl Hct 51.4 H (35.5-45.6) % Plt Count 175 (140-440) K/mm3 Lymph # (Auto) 1.7 (1.2-5.4) K/mm3 Comprehensive Metabolic Panel 08/24/21 Range/Units 05:41 Sodium 137 (137-145) mmol/L Potassium 4.6 (3.6-5.0) mmol/L Chloride 102.0 (98-107) mmol/L Carbon Dioxide 24 (22-30) mmol/L BUN 14 (9-20) mg/dL Creatinine 0.9 (0.8-1.3) mg/dL Glucose 96 (75-100) mg/dL Calcium 9.7 (8.4-10.2) mg/dL - Imaging and Cardiology Echo: pending, report reviewed - Telemetry EKG Rhythm: Sinus Rhythm - EKG Sinus rhythms and dysrhythmias: sinus rhythm
--- NOTE | 2021-08-24 10:11 | Nuclear Medicine Report ---
APPROVED REPORT Exam: Nuclear Stress Test Indication: A FLUTTER [facility] Ht: 5 ft 11 in Wt: 311 lbs BSA: 2.54 m2 HR: 63 bpmBP: 127/76 mmHgBMI: 43.37 Rhythm: SINUS RHYTHM INDETERMINATE AXIS COSISTENT WITH PULMONARY DISEASE , IRBB Stress Test Details Stress Test: Exercise stress testing was performed using a Darnell protocol. HR Resting HR: 63 bpm Max HR Achieved: 137 bpm Max Heart Rate (APMHR): 162.136312 bpm Target HR (85% APMHR): 137.683382 bpm % of APMHR: 84.57 Recovery HR: 97 bpm BP Resting BP: 127/76 mmHg Max BP: 150/80 mmHg Recovery BP: 127/79 mmHg ECG Resting ECG: SINUS RHYTHM Stress ECG: Sinus Tachycardia Recovery ECG: SINUS TACHYCARDIA/ SINUS RHYTHM Clinical Reason for Termination: Fatigue Stress Symptoms: None Exercise duration: 6 min 0 sec Exercise capacity: 7.2 METs Overall Exercise Capacity for Age: FAIR Angina Score: None NM EXAM: Myocardial Perfusion REST/STRESS Imaging Protocol: Rest Tc-99m/Stress Tc-99m 1 day Resting Data Rest SPECT myocardial perfusion imaging was performed in supine position 45 minutes following the intravenous injection of 10 mCi of Tc-99m Myoview. Time of rest injection: 0700 Exercise Stress At peak stress, the patient was injected intravenously with 28mCi of Tc-99m Myoview. Time of stress injection: 0915 Gated Stress SPECT was performed 20 minutes after stress injection. The images were gated to evaluate regional wall motion and calculate left ventricular ejection fraction. Study Quality Study: excellent Lung Uptake: Normal Study Data TID = 0.85. Perfusion Wall Motion The rest and stress images show normal left ventricular wall motion. Nuclear Conclusion ECG Findings: negative for ischemia Clinical Findings: negative for ischemia Nuclear Findings: negative for ischemia Exercise Capacity: normal Left Ventricular Function: normal 1. Negative Treadmll ekg 2. Fair exercise capacity 6 minutes 3. no exaggerated bp response to exercise 4. Normal study. No scintigraphic evidence for myocardial ischemia or scar. Normal left ventricular size and function with no regional wall motion abnormalities.
--- NOTE | 2021-08-24 10:18 | Discharge Summary ---
Providers - Providers Date of Admission: 08/23/21 11:23 Date of discharge: 08/24/21 Attending physician: KARLO MOSS 08/23/21 08:57 Consult to Physician [CONS] Urgent Comment: Consulting Provider: SHREYAS ALFONSO Physician Instructions: Reason For Exam: cp a fib rvr Primary care physician: ABBE ALFONSO Hospitalization Condition: Stable Disposition: 01 HOME / SELF CARE / HOMELESS Time spent for discharge: 34 minutes Core Measure Documentation - Palliative Care Palliative Care/ Comfort Measures: Not Applicable - Core Measures Any of the following diagnoses?: none Exam - Constitutional Vitals: Temp Pulse Resp BP Pulse Ox 98.3 F 60 18 127/79 96 08/24/21 04:28 08/24/21 09:43 08/24/21 09:43 08/24/21 09:19 08/24/21 09:43 Plan Activity: advance as tolerated Weight Bearing Status: Weight Bear as Tolerated Diet: low fat, low salt Follow up with: ABBE ALFONSO MD [Primary Care Provider] - 3-5 Days
[2021-08-24] MEDS: METOPROLOL TARTRATE 100 MG TAB PO SCH (10:48)
[2021-08-24 10:49] VITALS: BP 123/72
[2021-08-24] MEDS: HEPARIN 5,000 UNIT/1 ML VIAL SUB-Q SCH (10:49)
[2021-08-24] MEDS ORDERED: PNEUMOCOCCAL 23 Valent 0.5 ML VIAL IM ONE (12:00)
--- NOTE | 2021-08-24 13:16 | Electrocardiograph Report ---
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
--- NOTE | 2021-08-24 13:17 | Electrocardiograph Report ---
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
== END 2021-08-24 14:42 | disposition home or self-care (01) | DRG 291 ==
LOC: ED 08:10 → 4A 11:23
PROVIDERS: ADMIT Internal Medicine; ATTEND Internal Medicine
DX: I11.0 Hypertensive heart disease with heart failure (principal); I50.31 Acute diastolic (congestive) heart failure; I48.92 Unspecified atrial flutter; Z68.45 Body mass index [BMI] 70 or greater, adult; I48.91 Unspecified atrial fibrillation; F31.9 Bipolar disorder, unspecified; Z20.822 Contact with and (suspected) exposure to COVID-19; E78.00 Pure hypercholesterolemia, unspecified; K21.9 Gastro-esophageal reflux disease without esophagitis; E78.2 Mixed hyperlipidemia; E66.01 Morbid (severe) obesity due to excess calories; Z83.3 Family history of diabetes mellitus; Z82.49 Family history of ischemic heart disease and other diseases of the circulatory system
CPT/HCPCS: 36415; 71045; 78452; 80048; 80053; 83735; 84443; 84484; 85025; 85610; 93005; 93010; 93017; G0378; A9502; J1644

== ENCOUNTER 2021-12-17 22:30 | Emergency (ER) | payer SELFPAY ==
[2021-12-17 22:52] VITALS: BP 146/91
== END 2021-12-17 23:03 | disposition left against medical advice (07) ==
LOC: ED 22:30
DX: I10 Essential (primary) hypertension (principal); Z53.21 Procedure and treatment not carried out due to patient leaving prior to being seen by health care provider

== ENCOUNTER 2022-03-26 13:16 | Emergency (ER) | payer SELFPAY ==
[2022-03-26 13:50] VITALS: BP 97/58
--- NOTE | 2022-03-26 13:52 | Emergency Department Report ---
Stated Complaint: NAUSEA/HEART PROBLEMS - HPI History of Present Illness: 57 Y male reports to ER with HTN concerns as his BP was elevated at home 160's/80's. denies no chest pain or SOB at this time . reports nausea intermitted for couple of weeks. - ROS Review of Systems: nausea no chest pain and no SOB reported. - Exam Vital Signs: Vital Signs 03/26/22 13:46 Temperature 98.5 F Pulse Rate 68 Respiratory 18 Rate Blood Pressure 97/58 [Left] O2 Sat by Pulse 99 Oximetry MSE screening note: Focused history and physical exam performed. Due to findings the following was ordered: orders placed and medical screen completed ED Disposition for MSE Condition: Stable
== END 2022-03-27 00:15 | disposition left against medical advice (07) ==
LOC: ED 13:16
DX: R11.0 Nausea (principal); Z53.21 Procedure and treatment not carried out due to patient leaving prior to being seen by health care provider

== ENCOUNTER 2022-04-05 09:55 | Emergency (ER) | payer SELFPAY ==
[2022-04-05] MEDS ORDERED: ASPIRIN 325 MG TAB PO ONE (10:32)
[2022-04-05 10:38] VITALS: BP 132/84
--- NOTE | 2022-04-05 10:38 | Event Note ---
ED Screening Note Date of service: 04/05/22 Time: 10:36 ED Screening Note: This initial assessment/diagnostic orders/clinical plan/treatment(s) is/are subject to change based on patients health status, clinical progression and re- assessment by fellow clinical providers in the ED. Further treatment and workup at subsequent clinical providers discretion. Patient/guardian urged not to elope from the ED as their condition may be serious if not clinically assessed and managed. Very talkative 57 year old man who has had sharp stabbing chest pain intermittently for 2 days. +Dyuspnea and weaknes.. Hx HTN, Afib on eloquis (took this am). +obesity. Initial orders include: My Active Orders 04/05/22 10:32 EKG (12 lead) Stat Complete Blood Count Auto Diff Stat XR chest routine 2V Urgent 04/05/22 10:33 Comprehensive Metabolic Panel Stat Troponin T Stat XR chest 1V ap Urgent 04/05/22 10:35 Tech to do EKG .once Digoxin Stat Lipase Stat
--- NOTE | 2022-04-05 11:21 | XRay Report ---
CHEST 2 VIEWS INDICATION / CLINICAL INFORMATION: Chest Pain. COMPARISON: 08/23/2021 FINDINGS: SUPPORT DEVICES: None. HEART / MEDIASTINUM: Stable borderline heart size. LUNGS / PLEURA: No significant pulmonary or pleural abnormality. No pneumothorax. ADDITIONAL FINDINGS: No significant additional findings. IMPRESSION: 1. No acute findings. Signer Name: Tommie Deras Jr, MD Signed: 04/05/2022 11:17 AM Workstation Name: [id number]
[2022-04-05 11:52] LABS: Basophils # (Auto) 0.1 K/mm3 (0.0-0.1); Basophils % (Auto) 1.2 % (0.0-1.8); Eosinophils # (Auto) 0.2 K/mm3 (0.0-0.4); Eosinophils % (Auto) 2.5 % (0.0-4.3); Hematocrit 51.7 % (35.5-45.6); Hemoglobin 17.2 gm/dl (11.8-15.2); Lymphocytes # (Auto) 1.8 K/mm3 (1.2-5.4); Lymphocytes % (Auto) 17.9 % (13.4-35.0); Mean Corpuscular HGB Conc 33 % (32-34); Mean Corpuscular Volume 86 fl (84-94); Monocytes # (Auto) 0.6 K/mm3 (0.0-0.8); Monocytes % (Auto) 6.3 % (0.0-7.3); Platelet Count 191 K/mm3 (140-440); Red Blood Count 6.05 M/mm3 (3.65-5.03); Red Cell Distribution Width 14.6 % (13.2-15.2)
--- NOTE | 2022-04-05 12:09 | Emergency Department Report ---
- General Chief complaint: Weakness Stated complaint: CHEST PAIN / WEAKNESS Time Seen by Provider: 04/05/22 12:01 Source: patient Mode of arrival: Ambulatory Limitations: No Limitations - History of Present Illness Initial comments: 57-year-old white male with multiple medical problems complain that he feels weak all over. denies any focal weakness denies any fever chills cough MD Complaint: generalized weakness, lack of energy -: Gradual Location: generalized Severity scale (0 -10): 3 Consistency: intermittent Improves with: none Worsens with: morning Associated Symptoms: denies other symptoms - Related Data Home Medications Medication Instructions Recorded Confirmed Last Taken Aspirin 325 mg PO QDAY 08/20/13 08/23/21 08/23/21 08:00 Lisinopril [Zestril] 40 mg PO QDAY 08/20/13 08/23/21 08/23/21 08:00 Pravastatin [Pravachol] 40 mg PO QDAY 08/20/13 08/23/21 08/22/21 20:00 Previous Rx's Medication Instructions Recorded Last Taken Type Metoprolol [Lopressor TAB] 100 mg PO TID tablet 08/24/21 Unknown Rx Ondansetron (Nf) [Zofran TAB] 8 mg PO Q8HR PRN #10 tablet 04/05/22 Unknown Rx Allergies Allergy/AdvReac Type Severity Reaction Status Date / Time No Known Allergies Allergy Verified 12/01/18 09:57 ED Review of Systems ROS: Stated complaint: CHEST PAIN / WEAKNESS Other details as noted in HPI Constitutional: denies: chills, fever Eyes: denies: eye pain, eye discharge, vision change ENT: denies: ear pain, throat pain Respiratory: denies: cough, shortness of breath, wheezing Cardiovascular: denies: chest pain, palpitations Endocrine: no symptoms reported Gastrointestinal: denies: abdominal pain, nausea, diarrhea Genitourinary: denies: urgency, dysuria Musculoskeletal: denies: back pain, joint swelling, arthralgia Skin: denies: rash, lesions Neurological: denies: headache, weakness, paresthesias Psychiatric: denies: anxiety, depression Hematological/Lymphatic: denies: easy bleeding, easy bruising ED Past Medical Hx - Past Medical History Hx Hypertension: Yes Hx GERD: Yes Hx Kidney Stones: Yes Hx Psychiatric Treatment: Yes (bipolar, depression) Additional medical history: gout. high cholesterol. 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 KIDNEY STONE - Surgical History Hx Coronary Stent: Yes (x1) Hx Pacemaker: No Hx Internal Defibrillator: No Additional Surgical History: angioplasty 2007 - Social History Smoking Status: Never Smoker - Medications Home Medications: Home Medications Medication Instructions Recorded Confirmed Last Taken Type Aspirin 325 mg PO QDAY 08/20/13 08/23/21 08/23/21 08:00 History Lisinopril [Zestril] 40 mg PO QDAY 08/20/13 08/23/21 08/23/21 08:00 History Pravastatin [Pravachol] 40 mg PO QDAY 08/20/13 08/23/21 08/22/21 20:00 History Metoprolol [Lopressor TAB] 100 mg PO TID tablet 08/24/21 Unknown Rx Ondansetron (Nf) [Zofran TAB] 8 mg PO Q8HR PRN #10 tablet 04/05/22 Unknown Rx ED Physical Exam - General Limitations: No Limitations General appearance: alert, in no apparent distress - Head Head exam: Present: atraumatic, normocephalic - Eye Eye exam: Present: normal appearance, PERRL - ENT ENT exam: Present: mucous membranes moist - Neck Neck exam: Present: normal inspection - Respiratory Respiratory exam: Present: normal lung sounds bilaterally. Absent: respiratory distress - Cardiovascular Cardiovascular Exam: Present: regular rate, normal rhythm. Absent: systolic murmur, diastolic murmur, rubs, gallop - GI/Abdominal GI/Abdominal exam: Present: soft, normal bowel sounds - Rectal Rectal exam: Present: deferred - Extremities Exam Extremities exam: Present: normal inspection - Back Exam Back exam: Present: normal inspection - Neurological Exam Neurological exam: Present: alert, oriented X3 - Psychiatric Psychiatric exam: Present: normal affect, normal mood - Skin Skin exam: Present: warm, dry, intact, normal color. Absent: rash ED Course Vital Signs 04/05/22 10:34 Temperature 98.3 F Pulse Rate 62 Respiratory 16 Rate Blood Pressure 132/84 [Left] O2 Sat by Pulse 93 Oximetry ED Medical Decision Making - Lab Data Result diagrams: 04/05/22 10:49 04/05/22 10:49 - EKG Data -: EKG Interpreted by Me EKG shows normal: sinus rhythm, axis, intervals Rate: normal - EKG Data When compared to previous EKG there are: no significant change Interpretation: normal EKG Critical care attestation.: If time is entered above; I have spent that time in minutes in the direct care of this critically ill patient, excluding procedure time. ED Disposition Clinical Impression: Nausea, Weakness Disposition: 01 HOME / SELF CARE / HOMELESS Is pt being admited?: No Does the pt Need Aspirin: No Condition: Stable Instructions: Nausea, Adult, Fatigue, Weakness Prescriptions: Ondansetron (Nf) [Zofran TAB] 8 mg PO Q8HR PRN #10 tablet PRN Reason: Nausea And Vomiting
[2022-04-05 12:15] LABS: Alanine Aminotransferase 30 units/L (7-56); Albumin 4.4 g/dL (3.9-5); BUN/Creatinine Ratio 10; Blood Urea Nitrogen 8 mg/dL (9-20); Hemolysis Index 11
--- NOTE | 2022-04-06 11:51 | Electrocardiograph Report ---
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
== END 2022-04-05 14:30 | disposition home or self-care (01) ==
LOC: ED 09:55
DX: R11.0 Nausea (principal); R53.1 Weakness
CPT/HCPCS: 36415; 71046; 80053; 80162; 83690; 84484; 85025; 93005; 99283